=== PATIENT | male | born 1930 | race Caucasian/White ===

== ENCOUNTER → 2017-09-30 | Outpatient (CLI) | payer MEDICARE, BC ==
[~2017-09-30] MED LIST: ALL300 PO; ALLO100T70 PO; ASC500 PO; ASCO-188 PO; AZIT-1 PO; BETA10DR4 OP; CALC-1201 PO; CALC-852 PO; DOC100 GT; ERGO2000 PO; FLU IM; GAB300 PO; GABA-549 PO; GLUC-198 PO; GUAI120L3 PO; HYDR12.556 PO; HYDR12.558 PO; IPRA3AMP21 IH; ITRA100C9 PO; LEVO-3 PO; LEVO-317 PO; LEVO100T95 PO; LEVO750T44 PO; LISI5TAB25 PO; MAGN250T25 PO; MAGN250T34 PO; OMEG-95 PO; OMEP-125 PO; OMEP-218 PO; OXYC-865 PO; PER PO; PNEU0.5D3 IM; PRED-1 PO; PRED20TA6 PO; ROBC PO; SELE200T23 PO; SIMV-42 PO; SIMV-49 PO; UBID100C48 PO; VITA1CAP55 PO; ZINC50TA2 PO; [UNRECOGNIZED DRUG - CODE] PO; [UNRECOGNIZED DRUG - CODE] PO
[2017-09-30 09:33] LABS: PLATELET COUNT, AUTOMATED 136 K/uL (150-450)
== END ==
LOC: LAB 08:57
PROVIDERS: ATTEND Internal Medicine
DX: E03.9 Hypothyroidism, unspecified (principal); I10 Essential (primary) hypertension; M10.9 Gout, unspecified; E78.00 Pure hypercholesterolemia, unspecified; M79.661 Pain in right lower leg
CPT/HCPCS: 36415; 82040; 82247; 82310; 82374; 82435; 82465; 82565; 82947; 83718; 84075; 84132; 84155; 84295; 84443; 84450; 84460; 84478; 84520; 85025

== ENCOUNTER → 2017-10-04 | Outpatient (CLI) | payer MEDICARE, BC ==
--- NOTE | 2017-10-04 15:47 | RADIOLOGY IMAGING REPORT ---
[place] [facility] [place] NAME: Mehul Majano : 1930 MR: [id number] V: [id number] EXAM DATE: ORDERING PHYSICIAN: ZHANG GORDILLO TECHNOLOGIST: Location: [facility] Patient: Mehul Majano : 1930 Visit/Account:[id number] Date of Sevice: 10/04/2017 Exam type: ANKLE BRACHIAL INDICES History: pain in right leg with walking Comparison: None. Findings: Segmental pressure in the right brachial artery is 129 mmHg. Segmental pressure in the right posterior tibial artery is 77 mmHg. Segmental pressure in the right dorsalis pedis artery is 88 mmHg. Signal pressure in the right great toe is 56 millers of mercury. The ankle-brachial index on the right is 0.68. The TBI on the right is 0.43 There is moderate dampening of the PVR waveform at the right ankle Segmental pressure in the left brachial artery is 128 mmHg. Signal pressure in the left posterior tibial artery is 125 millers of mercury. Segmental pressure in the left dorsalis pedis artery is 125 mmHg. Segmental pressure in the left great toe is 87 mmHg. The ALEX on the left is 1.05 and the TBI on the left is 0.67. No significant dampening of the waveform at the left ankle is identified IMPRESSION: 1. ALEX on the right is 0.68 and TBI on the right is 0.43 The ALEX on the left 1.05 and TBI on the left 0.67 Report Dictated By: Ana Hernandez MD at 10/04/2017 3:39 PM Report E-Signed By: Ana Hernandez MD at 10/04/2017 3:42 PM WSN:[email or web address]
== END ==
LOC: US 01:09
PROVIDERS: ATTEND Internal Medicine
DX: M79.661 Pain in right lower leg (principal)
CPT/HCPCS: 93922

== ENCOUNTER 2017-11-05 14:24 | Inpatient (IN) | payer MEDICARE, BC ==
[~2017-11-05] VITALS: Ht 177.8 cm; Wt 82.0 kg
--- NOTE | 2017-11-05 14:56 | ER Report ---
History and Physical Time Seen By MD: 14:45 Hx. of Stated Complaint: PT REPORTS GENERAL WEAKNESS, LOW BP AT HOME. PT HAD RECENT BP MED ADJUSTED HPI/ROS This is an 86-year-old male with past medical history significant for hypothyroidism and hypertension. He was sent to the emergency department from his [facility] facility for "low blood pressure." The patient reports generalized weakness for the past 1.5 weeks. He also feels overwhelming fatigue. Denies and new pain. No chest pain or SOB. Hypoxic on RA upon arrival, but denies SOB. He otherwise has no complaints. Remainder of the 14 system rev: Yes Allergies: Coded Allergies: latex (Verified Allergy, Mild, RASH, 11/05/17) Home Meds Active Scripts Omeprazole (OMEPRAZOLE) 20 Mg Capsule.dr, 1 CAP PO QDAY, #90 TAB 3 Refills Prov:ZHANG GORDILLO MD 10/10/17 Hydrochlorothiazide (HYDROCHLOROTHIAZIDE) 12.5 Mg Capsule, 1 TAB PO QDAY, #90 CAPSULE 3 Refills Prov:ZHANG GORDILLO MD 09/29/17 Lisinopril (LISINOPRIL) 5 Mg Tablet, 1 TAB PO QDAY, #30 TAB 1 Refill Prov:ZHANG GORDILLO MD 09/27/17 Levothyroxine Sodium (LEVOXYL) 125 Mcg Tablet, 1 TAB PO QDAY, #90 TAB 4 Refills Prov:ZHANG GORDILLO MD 09/13/16 Simvastatin (SIMVASTATIN) 20 Mg Tablet, 1 TAB PO HS, #90 TAB 4 Refills Prov:ZHANG GORDILLO MD 07/06/16 Allopurinol (ALLOPURINOL) 100 Mg Tablet, 2 TAB PO DAILY, #180 TAB 4 Refills Prov:ZHANG GORDILLO MD 07/06/16 Reported Medications Selenium (SELENIUM) 100 Mcg Tablet, 1 TAB PO QDAY 07/01/15 Magnesium Oxide (MAGNESIUM) 250 Mg Tablet, 1 TAB PO QDAY 07/01/15 Zinc Amino Acid Chelate (ZINC) 50 Mg Tablet, 1 TAB PO QDAY, CAPSULE 07/01/15 Glucosa Adler 2KCL/Chondroitin Adler (GLUCOSAMINE & CHONDROITIN CAP) 1 Each Capsule, 1 CAP PO BID, CAPSULE 07/01/15 Calcium Carbonate/Vitamin D3 (CALCIUM + VITAMIN D TABLET) 1 Each Tablet, 1 TAB PO QDAY 07/01/15 Reviewed Nurses Notes: Yes Old Medical Records Reviewed: Yes Hx Smoking: No Smoking Status: Former Smoker Exposure to Second Hand Smoke?: Yes Constitutional Vital Sign - Last 24 Hours 11/05/17 11/05/17 11/05/17 11/05/17 14:24 14:27 14:27 14:30 Temp 97.6 Pulse 78 75 Resp 16 B/P (MAP) 113/57 (75) 113/57 110/52 (71) Pulse Ox 65 67 O2 Delivery Room Air O2 Flow Rate 5.0 11/05/17 11/05/17 11/05/17 11/05/17 14:34 14:44 14:54 15:00 Pulse 72 72 71 Resp 21 12 14 B/P (MAP) 91/63 (72) Pulse Ox 92 93 94 11/05/17 11/05/17 11/05/17 11/05/17 15:03 15:08 15:23 15:30 Pulse 69 69 68 Resp 7 9 16 B/P (MAP) 103/61 (75) Pulse Ox 90 91 93 11/05/17 11/05/17 11/05/17 11/05/17 15:38 16:00 16:08 16:13 Pulse 68 66 66 Resp 24 B/P (MAP) 101/54 (70) Pulse Ox 88 88 11/05/17 11/05/17 11/05/17 11/05/17 16:30 16:43 17:00 17:13 Pulse 68 68 B/P (MAP) 90/54 (66) 99/58 (72) Pulse Ox 86 88 11/05/17 11/05/17 11/05/17 17:30 17:43 18:00 Pulse 68 B/P (MAP) 110/60 (77) 108/61 (77) Pulse Ox 89 Physical Exam General Appearance: The patient is alert, has no immediate need for airway protection and no current signs of toxicity. Eyes: Pupils equal and round no injection. Respiratory: Chest is non tender, lungs are clear to auscultation. Cardiac: regular rate and rhythm Gastrointestinal: Abdomen is soft and non tender, no masses, bowel sounds normal. Musculoskeletal: Neck: Neck is supple and non tender. Extremities have full range of motion and are non tender. Skin: No rashes or lesions. DIFFERENTIAL DIAGNOSIS: After history and physical exam differential diagnosis was considered for infection, VT, electrolyte disturbance Medical Decision Making Data Points Result Diagram: 11/05/17 1418 11/05/17 1418 Laboratory Hematology Test 11/05/17 14:18 11/05/17 15:38 Red Blood Count 3.66 M/uL (4.00-5.60) Mean Corpuscular Volume 95.5 fL (80.0-96.0) Mean Corpuscular Hemoglobin 32.4 pg (26.0-33.0) Mean Corpuscular Hemoglobin Concent 34.0 g/dL (32.0-36.0) Red Cell Distribution Width 14.1 % (11.5-14.5) Mean Platelet Volume 10.8 fL (7.2-11.1) Neutrophils (%) (Auto) 47.8 % (39.4-72.5) Lymphocytes (%) (Auto) 48.2 % (17.6-49.6) Monocytes (%) (Auto) 0.5 % (4.1-12.4) Eosinophils (%) (Auto) 3.0 % (0.4-6.7) Basophils (%) (Auto) 0.5 % (0.3-1.4) Nucleated RBC Relative Count (auto) 0.1 /100WBC Neutrophils # (Auto) 6.2 K/uL (2.0-7.4) Lymphocytes # (Auto) 6.3 K/uL (1.3-3.6) Monocytes # (Auto) 0.1 K/uL (0.3-1.0) Eosinophils # (Auto) 0.4 K/uL (0.0-0.5) Basophils # (Auto) 0.1 K/uL (0.0-0.1) Nucleated RBC Absolute Count (auto) 0.01 K/uL Peripheral Blood Smear Yes Y/N Sodium Level 134 mmol/L (137-145) Potassium Level 4.7 mmol/L (3.5-5.0) Chloride Level 95 mmol/L (98-107) Carbon Dioxide Level 28 mmol/L (22-30) Blood Urea Nitrogen 59 mg/dl (9-21) Creatinine 2.90 mg/dl (0.66-1.25) Glomerular Filtration Rate Calc 20.8 Random Glucose 141 mg/dl (75-110) Calcium Level 13.3 mg/dl (8.4-10.2) Total Bilirubin 0.7 mg/dl (0.2-1.3) Aspartate Amino Transf (AST/SGOT) 34 U/L (0-35) Alanine Aminotransferase (ALT/SGPT) 39 U/L (0-56) Alkaline Phosphatase 80 U/L (0-126) Troponin I 0.075 ng/ml B-Type Natriuretic Peptide 198 pg/ml (0-100) Total Protein 5.9 gm/dl (6.3-8.2) Albumin 3.1 g/dl (3.5-5.0) Blood Gas Patient Temperature 97.6 DEGREES Venous Blood pH 7.49 (7.31-7.41) Venous Blood Partial Pressure CO2 34 mmHg Venous Blood Partial Pressure O2 < 35 mmHg Venous Blood HCO3 27 mmol/L Venous Blood Oxygen Saturation 72 % Venous Blood Base Excess 3 mmol/L Oxygen Liters/Minute 4.5l Chemistry Test 11/05/17 14:18 11/05/17 15:38 White Blood Count 13.1 k/uL (4.5-11.0) Red Blood Count 3.66 M/uL (4.00-5.60) Hemoglobin 11.9 g/dL (14.0-18.0) Hematocrit 35.0 % (42.0-52.0) Mean Corpuscular Volume 95.5 fL (80.0-96.0) Mean Corpuscular Hemoglobin 32.4 pg (26.0-33.0) Mean Corpuscular Hemoglobin Concent 34.0 g/dL (32.0-36.0) Red Cell Distribution Width 14.1 % (11.5-14.5) Platelet Count 215 K/uL (150-450) Mean Platelet Volume 10.8 fL (7.2-11.1) Neutrophils (%) (Auto) 47.8 % (39.4-72.5) Lymphocytes (%) (Auto) 48.2 % (17.6-49.6) Monocytes (%) (Auto) 0.5 % (4.1-12.4) Eosinophils (%) (Auto) 3.0 % (0.4-6.7) Basophils (%) (Auto) 0.5 % (0.3-1.4) Nucleated RBC Relative Count (auto) 0.1 /100WBC Neutrophils # (Auto) 6.2 K/uL (2.0-7.4) Lymphocytes # (Auto) 6.3 K/uL (1.3-3.6) Monocytes # (Auto) 0.1 K/uL (0.3-1.0) Eosinophils # (Auto) 0.4 K/uL (0.0-0.5) Basophils # (Auto) 0.1 K/uL (0.0-0.1) Nucleated RBC Absolute Count (auto) 0.01 K/uL Peripheral Blood Smear Yes Y/N Glomerular Filtration Rate Calc 20.8 Calcium Level 13.3 mg/dl (8.4-10.2) Total Bilirubin 0.7 mg/dl (0.2-1.3) Aspartate Amino Transf (AST/SGOT) 34 U/L (0-35) Alanine Aminotransferase (ALT/SGPT) 39 U/L (0-56) Alkaline Phosphatase 80 U/L (0-126) Troponin I 0.075 ng/ml B-Type Natriuretic Peptide 198 pg/ml (0-100) Total Protein 5.9 gm/dl (6.3-8.2) Albumin 3.1 g/dl (3.5-5.0) Blood Gas Patient Temperature 97.6 DEGREES Venous Blood pH 7.49 (7.31-7.41) Venous Blood Partial Pressure CO2 34 mmHg Venous Blood Partial Pressure O2 < 35 mmHg Venous Blood HCO3 27 mmol/L Venous Blood Oxygen Saturation 72 % Venous Blood Base Excess 3 mmol/L Oxygen Liters/Minute 4.5l EKG/Imaging EKG Interpretation 12 lead EKG: Rhythm: normal sinus rhythm [place]: normal QRS: normal ST segments: no specific flattening Monitor Interpretation: Normal Sinus Rhythm Imaging X-ray: CXR was obtained. I viewed the images myself on the PACS system. My interpretation of the images is: mild pulmonary edema. The radiologist interpretation had no clinically significant variation from this interpretation. Results: CT scan of the head was obtained. The results of the study are no acute findings. The study was read by the radiologist. I viewed the images myself on the PACS system. ED Course/Re-evaluation Clinical Indication for ER IV: Hydration ED Course 86-year-old male sent to the emergency department for hypotension from his assisted living facility. He was normotensive upon arrival to the ED. His chief complaint is he feels overwhelming generalized weakness for the past week and a half. He appears volume depleted on physical exam. He denies any pain. No fever chills. He is noted to have an AK I and hypercalcemia without EKG changes. Think he is likely volume depleted. He did mention to the nursing staff that he did not want to drink water because he does not feel like getting up to go to the bathroom. He has been started on gentle volume resuscitation. He was also somewhat hypoxic on room air upon arrival, but otherwise does not complain of any chest pain or shortness of breath. He has some mild pulmonary edema on his chest x-ray, which is likely contributing to his hypoxia on room air. He will be admitted for further workup. Decision to Disposition Date: November 05, 2017 Decision to Disposition Time: 18:33 Depart Departure Latest Vital Signs Vital Signs Date Time Temp Pulse Resp B/P (MAP) Pulse Ox O2 Delivery O2 Flow Rate FiO2 11/05/17 18:00 108/61 (77) 11/05/17 17:43 68 89 11/05/17 15:38 24 11/05/17 14:27 97.6 Room Air 11/05/17 14:27 5.0 Impression: Primary Impression: Hypercalcemia Additional Impression: Renal insufficiency Condition: Improved Disposition: Admitted from ER Referrals: ZHANG GORDILLO MD (PCP) Problem Qualifiers MOI DIAMOND MD November 05, 2017 14:56
[2017-11-05 15:37] LABS: PLATELET COUNT, AUTOMATED 215 K/uL (150-450)
[2017-11-05] MEDS ORDERED: NS(*) 0.9% 1000 ML BAG 1,000 ML IV ONE (15:50)
--- NOTE | 2017-11-05 16:26 | RADIOLOGY IMAGING REPORT ---
FAC[place] [facility] [place]IENT NAME: Mehul Majano : 1930 MR: [id number] V: [id number] EXAM DATE: ORDERING PHYSICIAN: MOI DIAMOND TECHN[place] [facility] [place] Mehul [place] : 1930 Visit/Account:[id number] Date of Sevice: 11/05/2017 CHEST SINGLE AP History: Hypoxia FINDINGS: Comparison studies: Comparison radiographs 10/13/2015 Tubes and Lines: None. Lungs and pleura: There has been interval development of extensive diffuse interstitial opacities t hrough both lungs with global involvement lung parenchyma most extensive in the lower lobes. Mediastinum: normal. Cardiac silhouette: normal . Osseous structures: Unremarkable for age . IMPRESSION: Findings probably represent acute pulmonary edema, possibly congestive heart failure. Hypersensitiv ity pneumonitis also possible. Infectious process less likely. Report Dictated By: Mikhail Alexis MD at 11/05/2017 4:20 PM Report E-Signed By: Mikhail Alexis MD at 11/05/2017 4:23 PM WSN:[id number]
--- NOTE | 2017-11-05 16:26 | RADIOLOGY IMAGING REPORT ---
FACILITY: [facility] - [place] PATIENT NAME: Mehul Majano : 1930 MR: [id number] V: [id number] EXAM DATE: ORDERING PHYSICIAN: MOI DIAMOND TECHNOLOGIST: Location: [facility] Patient: Mehul Majano : 1930 Visit/Account:[id number] Date of Sevice: 11/05/2017 EXAMINATION: CT head without IV contrast HISTORY: Swooshing sound inside head. TECHNIQUE: Axial CT images of the head were obtained from the vertex to the skull base without IV c ontrast, with coronal and sagittal 2D reconstructed images. One of the following dose optimization techniques was utilized in the performance of this exam: Autom ated exposure control; adjustment of the mA and/or kV according to the patient's size; or use of an i terative reconstruction technique. Specific details can be referenced in the facility's radiology C T exam operational policy. COMPARISON: None. FINDINGS: There is mild age-appropriate parenchymal volume loss, with slight patchy low attenuation in the deep white matter compatible with chronic small vessel ischemic change. Intracranial vascular calcificati ons. No CT evidence of intracranial hemorrhage, mass lesion, or acute infarct. No midline shift or extra-a xial fluid collections. Alejandra-white differentiation is maintained. The calvarium is intact. Prior sinus surgery with medial antrectomies. The paranasal sinuses and mast oid air cells are unopacified. The middle ear cavities are unopacified. IMPRESSION: 1. No CT evidence of acute intracranial pathology. 2. Mild chronic age-related changes. 2. The paranasal sinuses and middle ear cavities are unopacified. Report Dictated By: Vishal Bianchi MD at 11/05/2017 4:16 PM Report E-Signed By: Vishal Bianhci MD at 11/05/2017 4:22 PM WSN:[id number]
--- NOTE | 2017-11-05 17:27 | EKG ---
[place] [facility] [place] NAME: KAREN NORMAN : [id number] MR: [id number] V: [id number] EXAM DATE: ORDERING PHYSICIAN: MOI DIAMOND TECHNOLOGIST: SHAHID Test Reason : POSSIBLE STROKE Blood Pressure : / mmHG Vent. Rate : 073 BPM Atrial Rate : 073 BPM P-R Int : 152 ms QRS Dur : 078 ms QT Int : 380 ms P-R-T Axes : 052 061 061 degrees QTc Int : 418 ms Normal sinus rhythm Nonspecific T wave abnormality Abnormal ECG No previous ECGs available Confirmed by NAOMY DELCID ([id number]) on 11/06/2017 6:41:26 AM Referred By: DARA Confirmed By:NAOMY DELCID
[2017-11-05 20:04] VITALS: BP 127/60
[2017-11-05] MEDS ORDERED: INFLUENZA VIRUS VAC 0.5 ML SYR IM ONLY ONE (20:40)
[2017-11-05] MEDS ORDERED: NS(*) 0.9% 1000 ML BAG 1,000 ML IV PRN (20:40)
--- NOTE | 2017-11-05 20:56 | History & Physical ---
History of Present Illness Chief Complaint Weakness History of Present Illness This patient presented to the emergency room with vague complaints of weakness and low blood pressure. His blood pressure was noted to be normal on arrival. However, he was noted to be hypoxic. He does report shortness of breath with exertion. 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 (5) Essential hypertension Status: Chronic Home Meds Active Scripts Omeprazole (OMEPRAZOLE) 20 Mg Capsule.dr, 1 CAP PO QDAY, #90 TAB 3 Refills Prov:ZHANG GORDILLO MD 10/10/17 Hydrochlorothiazide (HYDROCHLOROTHIAZIDE) 12.5 Mg Capsule, 1 TAB PO QDAY, #90 CAPSULE 3 Refills Prov:ZHANG GORDILLO MD 09/29/17 Lisinopril (LISINOPRIL) 5 Mg Tablet, 1 TAB PO QDAY, #30 TAB 1 Refill Prov:ZHANG GORDILLO MD 09/27/17 Levothyroxine Sodium (LEVOXYL) 125 Mcg Tablet, 1 TAB PO QDAY, #90 TAB 4 Refills Prov:ZHANG GORDILLO MD 09/13/16 Simvastatin (SIMVASTATIN) 20 Mg Tablet, 1 TAB PO HS, #90 TAB 4 Refills Prov:ZHANG GORDILLO MD 07/06/16 Allopurinol (ALLOPURINOL) 100 Mg Tablet, 2 TAB PO DAILY, #180 TAB 4 Refills Prov:ZHANG GORDILLO MD 07/06/16 Reported Medications Selenium (SELENIUM) 100 Mcg Tablet, 1 TAB PO QDAY 07/01/15 Magnesium Oxide (MAGNESIUM) 250 Mg Tablet, 1 TAB PO QDAY 07/01/15 Zinc Amino Acid Chelate (ZINC) 50 Mg Tablet, 1 TAB PO QDAY, CAPSULE 07/01/15 Glucosa Adler 2KCL/Chondroitin Adler (GLUCOSAMINE & CHONDROITIN CAP) 1 Each Capsule, 1 CAP PO BID, CAPSULE 07/01/15 Calcium Carbonate/Vitamin D3 (CALCIUM + VITAMIN D TABLET) 1 Each Tablet, 1 TAB PO QDAY 07/01/15 Allergies: Coded Allergies: latex (Verified Allergy, Mild, RASH, 11/05/17) Patient History: Diabetes mellitus (DM) BROTHER OR SISTER, Age:81 FH: stomach ulcer FATHER, , Age:90 (perforated) FHx: rheumatoid arthritis BROTHER OR SISTER, Age:81 Hx Smoking: No Smoking Status: Former Smoker Exposure to Second Hand Smoke?: Yes Caffeine Intake: Coffee Caffeine/Cups Per Day: 5 CUPS/DAY Review of Systems All Systems Reviewed/Normal: Yes, Except as Noted Neurological: Weakness Respiratory: Shortness of Breath Exam Vital Signs Vital Signs Date Time Temp Pulse Resp B/P (MAP) Pulse Ox O2 Delivery O2 Flow Rate FiO2 11/05/17 20:04 97.8 75 22 127/60 (82) 94 Oxy Mask 8.0 Neuro: No Gross deficits Eyes: PERRLA Cardiovascular: Regular Rate and Rhythm Respiratory: Clear to Auscultation GI: Abd Soft and Non-Tender Extremities: No Edema Integumentary: No Cyanosis Medical Decision Making Data Points Result Diagram: 11/05/17 1418 11/05/17 1418 Item Value Date Time Calcium Level 13.3 mg/dl *H 11/05/17 1418 Troponin I 0.075 ng/ml 11/05/17 1418 B-Type Natriuretic Peptide 198 pg/ml H 11/05/17 1418 EKG / Imaging Imaging Chest x-ray reviewed. Assessment and Plan Problems: (1) Hypercalcemia Status: Acute Assessment & Plan: He is noted to have an elevated calcium level, which is likely due to dehydration and exacerbated by his hydrochlorothiazide. He has been started on IV fluids and a repeat calcium level is ordered for the morning. We have also ordered a PTH. (2) Acute renal failure Assessment & Plan: He does have an acute rise in his creatinine compared to last month. He has been started on fluids as above. (3) Pulmonary edema Assessment & Plan: The etiology is unclear. He does have hypoxia and complains of shortness of breath with exertion. His BNP is elevated and troponin is in equivocal range. We have ordered an echocardiogram, daily weights, and a troponin series. (4) Essential hypertension Status: Chronic Assessment & Plan: He has been on chronic treatment with lisinopril and hydrochlorothiazide. Both medications have been held. (5) Hypothyroidism Onset Date: 06/27/2014 Status: Chronic Assessment & Plan: He is on chronic treatment with Synthroid. A TSH is pending. 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 Copies to: ZHANG GORDILLO MD Venous Thromboembolism Antithrombotics Is Pt On Any Antithrombotics?: No Exam Sepsis Risk: No Definite Risk NAOMY DELCID DO November 05, 2017 20:56
[2017-11-06] VITALS (51 sets, daily range): BP systolic 76–155; BP diastolic 31–83; Ht 177.8 cm; Wt 82.0 kg
[2017-11-06 06:16] LABS: PLATELET COUNT, AUTOMATED 165 K/uL (150-450)
[2017-11-06] MEDS ORDERED: MAGNESIUM HYDROXIDE* 30ML UDCP PO PRN (08:45)
[2017-11-06] MEDS ORDERED: BISACODYL 10 MG SUPP PR PRN (08:45)
[2017-11-06] MEDS ORDERED: FUROSEMIDE 20 MG/2 ML VIAL IVP ONE ×2 (08:45→15:30)
[2017-11-06] MEDS ORDERED: LEVOTHYROXINE SOD 0.125 MG TAB PO SCH ×2 (09:00→09:10)
[2017-11-06] MEDS: ENOXAPARIN 30 MG/0.3 ML SYR SC SCH (09:47)
[2017-11-06] MEDS: DOCUSATE SODIUM 100 MG CAP PO SCH ×2 (09:47→21:10)
[2017-11-06] MEDS: POLYETHYLENE GLYCOL 17 GM PKT PO SCH (09:48)
--- NOTE | 2017-11-06 11:08 | RADIOLOGY IMAGING REPORT ---
FACILITY: [facility] PATIENT NAME: Mehul Majano : 1930 MR: [id number] V: [id number] EXAM DATE: ORDERING PHYSICIAN: JEAN CARLOS BORJA TECHNOLOGIST: Location: [facility] - [place] Patient: Mehul Majano : 1930 Visit/Account:[id number] Date of Sevice: 11/06/2017 Examination: Computed tomography thorax without contrast HISTORY: Infiltrates. Further evaluate. TECHNIQUE: Transaxial computed tomography images are obtained of the thorax without contrast. Multipl hair reformatted images were created in the coronal and sagittal planes. One of the following dose optimization techniques was utilized in the performance of this exam: Autom ated exposure control; adjustment of the mA and/or kV according to the patient's size; or use of an i terative reconstruction technique. Specific details can be referenced in the facility's radiology C T exam operational policy. Comparison: Plain films dated 11/05/2017 and October 13, 2015 are reviewed. FINDINGS: On this noncontrast study, no enlarged axillary lymph nodes are seen. There are multiple calcified hilar and mediastinal nodes present which are characteristic of old gran ulomatous disease. There are other, noncalcified lymph nodes identified. A precarinal node is enlarge d on image 42 and measures 1.4 x 1.7 cm in size. A right paratracheal node on image 38 measures 1.2 c m in size. There are additional nodes seen in the upper anterior mediastinum with a node measuring 1. 5 cm on image 26. Enlarged retrocrural nodes are seen. A left retrocrural node on image 79 measures 2 .2 x 1.6 cm. No pericardial effusion. There are small bilateral pleural effusions. Atherosclerotic calcifications are seen within the aortic arch and the arch vessels as well as the co ronary arteries. With respect to the lung windows, there are coronel lobar groundglass infiltrates seen bilaterally. These have a mid and upper lung predominant distribution. There is relative sparing of the far posterior i nferior lung bases. There are areas of septal line thickening. There are cystic changes seen througho ut the lungs. In the acute setting, appearance would favor groundglass infiltrates superimposed upon underlying centrilobular and paraseptal emphysema. This could be related to an inflammatory pneumonit is such as hypersensitivity pneumonitis. This could be related to a drug hypersensitivity. This less likely represents pulmonary alveolar proteinosis. Typical versus atypical infection would also be inc luded in the differential. Clinical correlation is necessary. Chronic interstitial lung disease is fe lt to be less likely as the lungs were clear on the 2016 exam. In addition, there are bronchiectatic changes present centrally. There are scattered calcified nodules which are characteristic of old gran ulomatous disease. No compression fractures are seen. Degenerative changes involve the thoracic spine. Limited images of the upper abdomen demonstrate old granulomatous disease in the spleen. Abdominal ao rta is atherosclerotic. IMPRESSION: 1. Dense coronel lobar groundglass infiltrates throughout both lungs with a mid and upper lung predominan t distribution. There are scattered areas of septal line thickening. In the acute setting, the CT meggan earance would favor an inflammatory pneumonitis superimposed upon underlying centrilobular and parase ptal emphysema. Typical versus atypical infectious etiologies or pulmonary alveolar proteinosis would also be the differential. Clinical correlation necessary. This requires short interval follow-up CT scan. Consider pulmonary consultation. 2. Mediastinal and retrocrural adenopathy. 3. Old granulomatous disease. 4. Diffuse atherosclerosis. Report Dictated By: Bright Lyon at 11/06/2017 10:53 AM Report E-Signed By: Bright Lyon at 11/06/2017 11:05 AM WSN:[id number]
[2017-11-06] MEDS: cefTRIAXone 2 GM VIAL IVP SCH (12:03)
--- NOTE | 2017-11-06 12:04 | Hospitalist Progress Note ---
Subjective Progress Notes Subjective He denies SOB, but staff has had to increase his O2 from 2 liters on admission to 15 liters. He has used the BIPAP this morning with good effect. He was moved to the ICU this morning. Physical Exam Vital Signs Date Time Temp Pulse Resp B/P (MAP) Pulse Ox O2 Delivery O2 Flow Rate FiO2 11/06/17 11:00 99.4 80 17 97/52 (67) 94 Bi-PAP 70.0 11/06/17 10:29 15.0 Intake and Output 11/07/17 07:00 Intake Total 240 ml Output Total 180 ml Balance 60 ml Intake Oral 240 ml Output Urine Total 180 ml # Voids 1 General Appearance: Alert, Awake, Other (mild tachypnea) Cardiovascular: Regular Rate and Rhythm Respiratory: Other (Insp crackles in mid lungs bilaterally and in left base. No wheezing) Extremities: Warm, No Pulses (In feet bilaterally, but able to Doppler the DP bilaterally), Perfused, Edema (trace to 1+ pitting edema in shins) Integumentary: No Jaundice, No Cyanosis Result Diagram: 11/06/17 0509 11/06/[address] of chest - 1. Dense coronel lobar groundglass infiltrates throughout both lungs with a mid and upper lung predominant distribution. There are scattered areas of septal line thickening. In the acute setting, the CT appearance would favor an inflammatory pneumonitis superimposed upon underlying centrilobular and paraseptal emphysema. Typical versus atypical infectious etiologies or pulmonary alveolar proteinosis would also be the differential. Clinical correlation necessary. This requires short interval follow-up CT scan. Consider pulmonary consultation. 2. Mediastinal and retrocrural adenopathy. 3. Old granulomatous disease. 4. Diffuse atherosclerosis. Monitor Interpretation: Normal Sinus Rhythm Assessment and Plan Problems: (1) Pneumonitis Status: Acute Assessment & Plan: He presented with a couple weeks of cough and then about a 1.5 weeks of progressive weakness. CXR showed diffuse edema and he had new hypoxia. CT of chest today shows panlobar ground glass infiltrates bilaterally with a mid and upper lung predominant distribution superimposed on centrilobular and paraseptal emphysema. His O2 requirement has increased overnight and now is requiring BIPAP/high flow nasal canula to maintain saturations. IVF have been stopped and he has been given a dose of Lasix. Ceftriaxone and azithromycin have been started. I spoke to Pulmonology at [facility] and they agreed with the plan. If the patient, decompensates despite diuresis/ abx and/or kidney function worsens, then the patient will likely need to be transferred. (2) Hypercalcemia Status: Acute Assessment & Plan: He is noted to have an elevated calcium level which has improved with hydration. The etiology is unclear, but was certainly exacerbated by his hydrochlorothiazide and possible dehydration. PTH pending. He was hydrated, but now is saline locked. Calcium still elevated but decreased. Lasix given this morning. Will follow. (3) Acute renal failure Assessment & Plan: He presented with a creatinine of 2.9 up from a baseline of about 1.2. Today, it has decreased to 2.2 after hydration. However, because of the increased O2 requirements and the CT results, fluids have been stopped and Lasix given. He is to get another creatinine later today to see the result of diuresis. See above. (4) Essential hypertension Status: Chronic Assessment & Plan: He has been on chronic treatment with lisinopril and hydrochlorothiazide. Both medications have been held. (5) Hypothyroidism Onset Date: 06/27/2014 Status: Chronic Assessment & Plan: He is on chronic treatment with Synthroid. A TSH is pending. Now on IV levothyroxine. 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 Exam Sepsis Risk: No Definite Risk JEAN CARLOS BORJA MD November 06, 2017 12:04
[2017-11-06] MEDS ORDERED: LEVOTHYROXINE SOD 100 MCG VIAL IVP ONE (12:30)
[2017-11-06] MEDS: AZITHROMYCIN(*) 500 MG 500 MG in NS(*) 0.9% 250 ML BAG 250 ML IVPB SCH (12:48)
[2017-11-06] MEDS: ACETAMINOPHEN 325 MG TAB PO PRN (21:10)
[2017-11-07] VITALS (80 sets, daily range): BP systolic 74–122; BP diastolic 43–90
[2017-11-07 05:18] LABS: PLATELET COUNT, AUTOMATED 141 K/uL (150-450)
--- NOTE | 2017-11-07 06:28 | RADIOLOGY IMAGING REPORT ---
FACILITY: [facility] - [place] PATIENT NAME: Mehul Majano : 1930 MR: [id number] V: [id number] EXAM DATE: ORDERING PHYSICIAN: JEAN CARLOS BORJA TECHNOLOGIST: Location: [facility] - [place] Patient: Mehul Majano : 1930 Visit/Account:[id number] Date of Sevice: 11/07/2017 CHEST SINGLE AP Additional pertinent History: Hypoxia. COMPARISON STUDIES: 11/05/2017 FINDINGS: Support lines and catheters: EKG wire leads Lungs and Pleura: Reidentified is the coarse reticular interstitial lung changes noted throughout sveta th lung khanna with increasing prominence in the mid and upper lung field when compared to the previo us study. Actual slight improvement in what had been a greater degree of apparent atelectasis in the right lower lung. Heart and vasculature: Heart is of normal size. Central vasculature is grossly unchanged Claritza and Mediastinum: Negative. Bones and Chest wall: Negative. Upper Abdomen: Negative. IMPRESSION: 1. Increasing coarse reticular interstitial lung change noted in the mid-upper lung khanna. Slight im provement in aeration the right lower lung. Differential diagnosis includes worsening pulmonary edema versus other infectious/inflammatory lung processes. Report Dictated By: David Shah MD at 11/07/2017 6:20 AM Report E-Signed By: David Shah MD at 11/07/2017 6:24 AM WSN:[id number]
[2017-11-07] MEDS ORDERED: FUROSEMIDE 20 MG/2 ML VIAL IVP ONE (08:15)
[2017-11-07] MEDS: POLYETHYLENE GLYCOL 17 GM PKT PO SCH (08:48)
[2017-11-07] MEDS: methylPREDNIS SUCC 125 MG/2ML IVP SCH ×2 (08:49→17:25)
[2017-11-07] MEDS: ENOXAPARIN 30 MG/0.3 ML SYR SC SCH (08:52)
[2017-11-07] MEDS: DOCUSATE SODIUM 100 MG CAP PO SCH ×2 (08:52→20:39)
--- NOTE | 2017-11-07 09:07 | Medical Nutrition Therapy ---
Nutrition Anthropometrics Height (Inches): 70.00 Height (Calculated Centimeters: 177.293130 Weight (Pounds): 183 Weight (Calculated Kilograms): 83.007 BMI Calculated: 26.69 Hussein Nutrition Score: Adequate Hussein Nutrition Risk Score: 17 Dietary Referral Nutrition Risk Factors: Nutrition Risk Comment: Physical Findings Physical Appearance: Overweight BMI 25-29 Skin Appearance Skin Appearance: Edema Edema Location Modifier: Both Edema Location: Lower Extremity Type of Edema: Degree of Edema: Gastrointestinal Symptoms GI Symtoms: Tube Present: Bowel Sounds: Recent Bowel Pattern: Stool Characteristics: Nutritional Diagnosis Nutritional Risk Acuity 1: Acute/ES Renal Nutritional Risk Acuity 4: Good Appetite Past Medical History: Gouty arthropathy, Hypothyroidism, Benign prostatic hyperplasia (BPH), Squamous cell carcinoma of scalp, Essential hypertension Nutritional Acuity: 1-High Nutrition Diagnosis: Decreased Nutrient Needs Nutrition Etiology: Physiological Causes Nutrition Problem/Etiology/Sym: Decreased protein, fluids needs r/t dxc ARF aEB BUN 44, creatinine 1.8 Energy Requirement: 1980 ([place]- [place]) Protein Requirement: 66 (.8gm/kg) Fluid Requirement: 2000 (25ml/kg) Diet Type: Diet as Tolerated YURI/REG Nutrition Intervention: Cont diet as ordered, Encourage intake Nutrition Monitoring & Eval Nutrition Goals: Eat 75-100% Meal Nutrition Follow-Up: Good Intake RD Patient Assessment Time: [address] Assessment Type: RD Assessment Patient Nutrition Acuity: 1-High Follow Up Date: November 10, 2017 Nutritional Comment: Pt admitted with Hypercalcemia, ARF, and Pulmonary edema. ARF should resolve with hydration. Low H/H, Ca+ 11.7, Alb 3.1, BNP 198. Pt overwt with BMI of 26.7. Receiving YURI and consuming 100%. Follow intake, labs, etc. 11/07 Pt cont dx of ARF. BUN 44, creatinine 1.8 which has improved but not resolved. Pt recieved duiretic but now is stopped. Pt has non-pitting edema LE with a 5# wt gain from admission. Anticipate wt loss when edema resolved. Pt is eating 75- 100% of meals. alb low at 2.1, Na low at 134. Will cont to monitor and encourage intake. BRIDGETT ESTEVEZ November 07, 2017 09:07
--- NOTE | 2017-11-07 10:12 | Hospitalist Progress Note ---
Subjective Progress Notes Subjective He reports some improvements. Less dyspnea. No fever. Physical Exam Vital Signs Date Time Temp Pulse Resp B/P (MAP) Pulse Ox O2 Delivery O2 Flow Rate FiO2 11/07/17 07:30 76 15 88/45 (59) 89 Vapotherm 35.0 90.0 11/07/17 05:30 97.0 Intake and Output 11/08/17 07:00 Intake Total 390 ml Output Total 125 ml Balance 265 ml Intake Oral 390 ml Output Urine Total 125 ml General Appearance: Alert, Awake Neuro: No Gross deficits Cardiovascular: Regular Rate and Rhythm Respiratory: Other (bilateral rales throughout) GI: Soft and Non-Tender Extremities: Warm, Perfused, Edema Integumentary: Generalized Fragile Skin Psych: Alert & Oriented X3 Result Diagram: 11/07/17 0508 11/07/17 0508 Monitor Interpretation: Normal Sinus Rhythm Assessment and Plan Problems: (1) Pneumonitis Status: Acute Assessment & Plan: He presented with a couple weeks of cough and then about a 1.5 weeks of progressive weakness. CXR showed diffuse edema/interstitial prominence and he had new hypoxia. CT of chest shows panlobar ground glass infiltrates bilaterally with a mid and upper lung predominant distribution superimposed on centrilobular and paraseptal emphysema. His O2 requirement initially increased, but has now remained fairly stable. Ceftriaxone and azithromycin have been started. He has tolerated diuresis. Dr. Hannon spoke to Pulmonology at [facility] and they agreed with the plan. Will check urinary antigen for Legionella. If the patient, decompensates despite diuresis/ antibiotics and/or kidney function worsens, then the patient may need to be transferred. (2) Hypercalcemia Status: Acute Assessment & Plan: He was noted to have an elevated calcium level which has improved with hydration/diuresis. The etiology is unclear, but was certainly exacerbated by his hydrochlorothiazide and possible dehydration. PTH pending. He was hydrated, but now is saline locked. Calcium still elevated, but decreased. Continue diuresis as tolerated. Will follow. (3) Acute renal failure Assessment & Plan: He presented with a creatinine of 2.9 up from a baseline of about 1.2. Today, it has decreased to 1.8 after hydration and subsequent diuresis. However, because of the increased O2 requirement and the CT results, IV fluids have been stopped and Lasix given intermittently. See above. (4) Essential hypertension Status: Chronic Assessment & Plan: He has been on chronic treatment with lisinopril and hydrochlorothiazide. Both medications have been held. (5) Hypothyroidism Onset Date: 06/27/2014 Status: Chronic Assessment & Plan: He is on chronic treatment with Synthroid. A TSH is pending. Now on IV levothyroxine. 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 Exam Sepsis Risk: No Definite Risk DILLON STONE MD November 07, 2017 10:12
[2017-11-07] MEDS: cefTRIAXone 2 GM VIAL IVP SCH (12:28)
[2017-11-07] MEDS: AZITHROMYCIN(*) 500 MG 500 MG in NS(*) 0.9% 250 ML BAG 250 ML IVPB SCH (12:47)
[2017-11-08] VITALS (48 sets, daily range): BP systolic 70–139; BP diastolic 33–80
[2017-11-08] MEDS: methylPREDNIS SUCC 125 MG/2ML IVP SCH ×3 (01:18→17:20)
[2017-11-08 05:28] LABS: PLATELET COUNT, AUTOMATED 141 K/uL (150-450)
--- NOTE | 2017-11-08 06:27 | RADIOLOGY IMAGING REPORT ---
FACILITY: [facility] PATIENT NAME: Mehul Majano : 1930 MR: [id number] V: [id number] EXAM DATE: ORDERING PHYSICIAN: DILLON STONE TECHNOLOGIST: Location: [facility] Patient: Mehul Majano : 1930 Visit/Account:[id number] Date of Sevice: 11/08/2017 CHEST SINGLE AP Additional pertinent History: Interstitial pneumonitis COMPARISON STUDIES: 11/07/2017 FINDINGS: Support lines and catheters: EKG wire leads and oxygen tubing Lungs and Pleura: Reidentified and basically unchanged is the diffuse interstitial reticular infiltr ative change noted throughout both lung khanna. An increasing opacity at the right costophrenic angle and obscuration right hemidiaphragm compatible with probable worsening effusion. Heart and vasculature: Negative. Claritza and Mediastinum: Negative. Bones and Chest wall: Negative. Upper Abdomen: Negative. IMPRESSION: 1. Increasing effusion/consolidation the right base. Unchanged appearance to the diffuse interstitial reticular infiltrative change throughout the aerated lung khanna otherwise. Report Dictated By: David Shah MD at 11/08/2017 6:18 AM Report E-Signed By: David Shah MD at 11/08/2017 6:22 AM WSN:[id number]
[2017-11-08] MEDS ORDERED: LEVOTHYROXINE SOD 0.125 MG TAB PO SCH (08:20)
[2017-11-08] MEDS: ENOXAPARIN 30 MG/0.3 ML SYR SC SCH (08:48)
[2017-11-08] MEDS: DOCUSATE SODIUM 100 MG CAP PO SCH ×2 (08:48→20:39)
[2017-11-08] MEDS: POLYETHYLENE GLYCOL 17 GM PKT PO SCH (08:48)
[2017-11-08] MEDS ORDERED: ALLOPURINOL 100 MG TAB PO SCH (09:00)
[2017-11-08] MEDS ORDERED: FUROSEMIDE 20 MG/2 ML VIAL IVP ONE (11:35)
--- NOTE | 2017-11-08 11:36 | Hospitalist Progress Note ---
Subjective Progress Notes Subjective He denies SOB. He did get some sleep. Physical Exam Vital Signs Date Time Temp Pulse Resp B/P (MAP) Pulse Ox O2 Delivery O2 Flow Rate FiO2 11/08/17 08:57 91 Vapotherm 40.0 95.0 11/08/17 08:54 75 11/08/17 08:30 21 116/74 (88) 11/08/17 08:00 96.2 Intake and Output 11/09/17 07:00 Intake Total 500 ml Output Total 140 ml Balance 360 ml Intake Oral 500 ml Output Urine Total 140 ml General Appearance: Alert, Awake, No Acute Distress (, but mild tachypnea) Cardiovascular: Regular Rate and Rhythm Respiratory: Other (Insp crackles in right base, but otherwise clear) Extremities: No Edema Integumentary: No Jaundice, No Cyanosis Result Diagram: 11/08/17 0505 11/08/17 0505 Monitor Interpretation: Normal Sinus Rhythm Assessment and Plan Problems: (1) Pneumonitis Status: Acute Assessment & Plan: He presented with a couple weeks of cough and then about a 1.5 weeks of progressive weakness. CXR showed diffuse edema/interstitial prominence and he had new hypoxia. CT of chest shows panlobar ground glass infiltrates bilaterally with a mid and upper lung predominant distribution superimposed on centrilobular and paraseptal emphysema. His O2 requirement initially increased dramatically but has now remained fairly stable. Methylprednisolone, Ceftriaxone and azithromycin have been started. He has tolerated diuresis. Dr. Borja spoke to Pulmonology at [facility] and they agreed with the plan. Urinary antigen for Legionella pending. CXR today is unchanged except a new right pleural effusion. If the patient, decompensates despite diuresis/antibiotics and/or kidney function worsens, then the patient may need to be transferred. (2) Hypercalcemia Status: Acute Assessment & Plan: He was noted to have an elevated calcium level which has improved with hydration/diuresis. The etiology is unclear, but was certainly exacerbated by his hydrochlorothiazide and possible dehydration. PTH pending. He was hydrated, but now is saline locked. Calcium still elevated when corrected for albumin, but decreased. Continue diuresis as tolerated. Will follow. (3) Acute renal failure Assessment & Plan: He presented with a creatinine of 2.9 up from a baseline of about 1.2. Today, it has decreased to 1.4 after hydration and subsequent diuresis. However, because of the increased O2 requirement and the CT results, IV fluids have been stopped and Lasix given intermittently. See above. (4) Essential hypertension Status: Chronic Assessment & Plan: He has been on chronic treatment with lisinopril and hydrochlorothiazide. Both medications have been held. (5) Hypothyroidism Onset Date: 06/27/2014 Status: Chronic Assessment & Plan: He is on chronic treatment with Synthroid. A TSH mildly elevated at 5.01. Now on back on levothyroxine. 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 Exam Sepsis Risk: Sepsis Risk JEAN CARLOS BORJA MD November 08, 2017 11:36
[2017-11-08] MEDS: cefTRIAXone 2 GM VIAL IVP SCH (11:49)
[2017-11-08] MEDS: AZITHROMYCIN(*) 500 MG 500 MG in NS(*) 0.9% 250 ML BAG 250 ML IVPB SCH (12:49)
[2017-11-08] MEDS ORDERED: SALINE NASAL GEL 14.1 GM TUBE PRN (13:35)
[2017-11-08] MEDS: LEVOTHYROXINE SOD 0.125 MG TAB PO SCH (15:59)
[2017-11-08] MEDS: ALLOPURINOL 100 MG TAB PO SCH (17:20)
[2017-11-08] MEDS: SIMVASTATIN 20 MG TAB PO SCH (20:39)
[2017-11-08] MEDS: ACETAMINOPHEN 325 MG TAB PO PRN (23:35)
[2017-11-09] VITALS (48 sets, daily range): BP systolic 78–129; BP diastolic 46–71
[2017-11-09] MEDS: methylPREDNIS SUCC 125 MG/2ML IVP SCH ×3 (00:23→17:36)
[2017-11-09 05:32] LABS: PLATELET COUNT, AUTOMATED 145 K/uL (150-450)
--- NOTE | 2017-11-09 06:46 | RADIOLOGY IMAGING REPORT ---
FACILITY: [facility] PATIENT NAME: Mehul Majano : 1930 MR: [id number] V: [id number] EXAM DATE: ORDERING PHYSICIAN: JEAN CARLOS BORJA TECHNOLOGIST: Location: [facility] - [place], [place] Patient: Mehul Majano : 1930 Visit/Account:[id number] Date of Sevice: 11/09/2017 CHEST SINGLE AP Additional pertinent History: Pneumonitis COMPARISON STUDIES: A 09/08/2017 FINDINGS: Support lines and catheters: EKG wire leads Lungs and Pleura: Persistent coarse interstitial reticular infiltrative changes within the lung with stable findings in the left lung and improving aeration in the right lung particularly the right low er lung laterally. Heart and vasculature: Negative. Claritza and Mediastinum: Negative. Bones and Chest wall: Negative. Upper Abdomen: Negative. IMPRESSION: 1. Persistent unchanged appearance of the chest the left lung. Improvement in the aeration and degree of interstitial infiltrative change in the right lung as described. Report Dictated By: David Shah MD at 11/09/2017 6:38 AM Report E-Signed By: David Shah MD at 11/09/2017 6:42 AM WSN:[id number]
[2017-11-09] MEDS ORDERED: MORPHINE 2 MG/ML SYR IVP PRN (08:05)
--- NOTE | 2017-11-09 08:23 | Antimicrobial Stewardship Note ---
Antimicrobial Stewardship Note Note Clinical Pharmacist Note: 86 yo male who presented with weakness, SOB, and low blood pressure. Chest Xray: showed interstitial infiltrates WBC 13.1 -->17.8 on methylprednisolone LFTs have increased afebrile Antibiotics: Ceftriaxone 2g IVP, azithromycin 500 mg IV Urinary Ag for legionella pending 1. Interstitial Pneumonia- on azithromycin/ceftriaxone day 4 of therapy, started on 11/06/17, recommend course of 7-10 days. Watch LFTs could be ceftriaxone contributing, also on simvastatin/APAP. Molly Murguia, PharmD, BCOP MOLLY MURGUIA November 09, 2017 08:23
[2017-11-09] MEDS: DOCUSATE SODIUM 100 MG CAP PO SCH ×2 (08:34→20:44)
[2017-11-09] MEDS: ENOXAPARIN 30 MG/0.3 ML SYR SC SCH (08:34)
[2017-11-09] MEDS: POLYETHYLENE GLYCOL 17 GM PKT PO SCH (08:34)
--- NOTE | 2017-11-09 10:40 | Hospitalist Progress Note ---
Subjective Progress Notes Subjective He reports feeling improved. Less dyspneic. Appetite improving. No fevers. Physical Exam Vital Signs Date Time Temp Pulse Resp B/P (MAP) Pulse Ox O2 Delivery O2 Flow Rate FiO2 11/09/17 10:07 60 11/09/17 10:00 13 96/50 (65) 95 Vapotherm 35.0 90.0 11/09/17 08:30 96.2 Intake and Output 11/10/17 07:00 Output Total 120 ml Balance -120 ml Output Urine Total 120 ml General Appearance: Alert, Awake Cardiovascular: Regular Rate and Rhythm Respiratory: Other (rales at both bases (improved in upper khanna)) GI: Soft and Non-Tender Extremities: Warm, Perfused Psych: Alert & Oriented X3 Result Diagram: 11/09/17 0515 11/09/17 05 Monitor Interpretation: Normal Sinus Rhythm Assessment and Plan Problems: (1) Pneumonitis Status: Acute Assessment & Plan: He presented with a couple weeks of cough and then about a 1.5 weeks of progressive weakness. CXR showed diffuse edema/interstitial prominence and he had new hypoxia. CT of chest shows panlobar ground glass infiltrates bilaterally with a mid and upper lung predominant distribution superimposed on centrilobular and paraseptal emphysema. His O2 requirement initially increased dramatically, but has remained fairly stable and is now improving. Methylprednisolone, Ceftriaxone and azithromycin have been started. He has tolerated diuresis fairly well. Dr. Hannon spoke to Pulmonology at [facility] and they agreed with the plan. Urinary antigen for Legionella pending. CXR today is improved as compared to yesterday. If the patient, decompensates despite diuresis/antibiotics and/or kidney function worsens, then the patient may need to be transferred. (2) Hypercalcemia Status: Acute Assessment & Plan: He was noted to have an elevated calcium level which has improved with hydration/diuresis. The etiology is unclear, but was certainly exacerbated by his hydrochlorothiazide and possible dehydration. PTH still pending. He was hydrated, but now is saline locked. Continue diuresis as tolerated. Will follow. (3) Acute renal failure Assessment & Plan: He presented with a creatinine of 2.9 up from a baseline of about 1.2. Today, it is stable at 1.4 after hydration and subsequent diuresis. However, because of the increased O2 requirement and the CT results, IV fluids have been stopped and Lasix given intermittently. See above. (4) Essential hypertension Status: Chronic Assessment & Plan: He has been on chronic treatment with lisinopril and hydrochlorothiazide. Both medications have been held. (5) Hypothyroidism Onset Date: 06/27/2014 Status: Chronic Assessment & Plan: He is on chronic treatment with Synthroid. A TSH mildly elevated at 5.01. Now on back on levothyroxine. 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 Exam Sepsis Risk: No Definite Risk DILLON STONE MD November 09, 2017 10:39
[2017-11-09] MEDS: cefTRIAXone 2 GM VIAL IVP SCH (11:50)
[2017-11-09] MEDS: AZITHROMYCIN(*) 500 MG 500 MG in NS(*) 0.9% 250 ML BAG 250 ML IVPB SCH (12:12)
--- NOTE | 2017-11-09 15:13 | RADIOLOGY IMAGING REPORT ---
FACILITY: [facility] PATIENT NAME: KAREN NORMAN : [id number] MR: [id number] V: [id number] EXAM DATE: ORDERING PHYSICIAN: NAOMY DELCID TECHNOLOGIST: Soledad Gipson EXAMINATION:TWO-DIMENSIONAL ECHOCARDIOGRAPH REASON:CHF 2D Measurements (normal values in centimeters) LV endLV endRV endVent.LV PostAorticLeftPercent DiastolicSystolicDiastolicSeptumWallRootAtriumShortening (3.5-5.7)(0.9-2.6)(0.6-1.1)(0.6-1.1)(2.0-3.7)(1.9-4.0)(25-35%) [id number]% STROKE VOLUME: 33ml ESTIMATED EJECTION FRACTION:50-55% LEFT VENTRICLE: Ejection fraction: 55-60%, normal wall motion, normal size & LV wall thickness. Normal diastolic function. RIGHT VENTRICLE: Mildly dilated with preserved function. RIGHT ATRIUM: Normal size without masses. LEFT ATRIUM: Normal size without masses. AORTIC VALVE: Trileaflet valve with no stenosis or regurgitation. PULMONIC VALVE: Poorly visualized but no significant regurgitation or stenosis noted. MITRAL VALVE: Normal structure & function with no significant stenosis or regurgitation. TRICUSPID VALVE: Mild tricuspid regurgitation, RVSP estimated at 40-45mm Hg. IVC is normal size & collapses well with an estimated right atrial pressure of 5mm Hg. AORTIC VALVE: Normal size without aneurysm. PERICARDIUM: No pericardial effusion noted. OVERALL IMPRESSION: 1. Ejection fraction 50-55%, mild right ventricular dilation with preserved function. Mild pulmonary hypertension with an RVSP of 41mm Hg along with mild to moderate tricuspid regurgitation. Dictated by: Curtis Velásquez M.D. on 11/08/2017 at 15:00 Transcribed by: MYNOR on 11/09/2017 at 7:04 Approved by: Curtis Velásquez M.D. on 11/09/2017 at 15:13 [facility]
[2017-11-09] MEDS: LEVOTHYROXINE SOD 0.125 MG TAB PO SCH (16:13)
[2017-11-09] MEDS: ALLOPURINOL 100 MG TAB PO SCH (17:36)
[2017-11-09] MEDS: ACETAMINOPHEN 325 MG TAB PO PRN (19:23)
[2017-11-09] MEDS: SIMVASTATIN 20 MG TAB PO SCH (20:44)
[2017-11-10] VITALS (30 sets, daily range): BP systolic 84–133; BP diastolic 42–80
[2017-11-10] MEDS: methylPREDNIS SUCC 125 MG/2ML IVP SCH ×3 (01:16→17:01)
[2017-11-10] MEDS: ACETAMINOPHEN 325 MG TAB PO PRN (01:16)
[2017-11-10 05:08] LABS: PLATELET COUNT, AUTOMATED 136 K/uL (150-450)
--- NOTE | 2017-11-10 05:35 | RADIOLOGY IMAGING REPORT ---
FACILITY: [facility] PATIENT NAME: Mehul Majano : 1930 MR: [id number] V: [id number] EXAM DATE: ORDERING PHYSICIAN: DILLON STONE TECHNOLOGIST: Location: [place] [facility] - [place] Patient: Mehul Majano : 1930 Visit/Account:[id number] Date of Sevice: 11/10/2017 SINGLE AP RADIOGRAPH OF THE CHEST 11/10/2017 6:00 AM. INDICATION: pneumonia/hypoxia COMPARISON: Yesterday. FINDINGS: Extensive bilateral predominantly interstitial opacification is not significantly changed. No appare nt pleural effusion or pneumothorax. Heart size is normal. IMPRESSION: No significant change. Report Dictated By: Honorio Espitia MD at 11/10/2017 5:29 AM Report E-Signed By: Honorio Espitia MD at 11/10/2017 5:31 AM WSN:[id number]
[2017-11-10] MEDS: ENOXAPARIN 30 MG/0.3 ML SYR SC SCH (08:19)
[2017-11-10] MEDS: DOCUSATE SODIUM 100 MG CAP PO SCH ×2 (08:19→21:24)
[2017-11-10] MEDS: POLYETHYLENE GLYCOL 17 GM PKT PO SCH (08:19)
[2017-11-10] MEDS: PANTOPRAZOLE SOD 40 MG TABEC PO SCH (08:19)
[2017-11-10] MEDS: cefTRIAXone 2 GM VIAL IVP SCH (11:56)
[2017-11-10] MEDS ORDERED: NS(*) 0.9% 500 ML BAG 500 ML ONE (12:07)
[2017-11-10] MEDS: AZITHROMYCIN(*) 500 MG 500 MG in NS(*) 0.9% 250 ML BAG 250 ML IVPB SCH (12:31)
--- NOTE | 2017-11-10 13:13 | Hospitalist Progress Note ---
Subjective Progress Notes Subjective This patient was admitted for hypercalcemia. He was transferred to the ICU secondary to increased oxygen demands. Patient Complains of: Cardiovascular: No: Chest Pain Respiratory: Shortness of Breath Physical Exam Vital Signs Date Time Temp Pulse Resp B/P (MAP) Pulse Ox O2 Delivery O2 Flow Rate FiO2 11/10/17 12:09 93 Vapotherm 35.0 60.0 11/10/17 12:05 65 11/10/17 12:00 17 122/62 (82) 11/10/17 09:00 96.8 Intake and Output 11/11/17 07:00 Output Total 700 ml Balance -700 ml Output Urine Total 700 ml Neuro: No Gross deficits Eyes: PERRLA Cardiovascular: Regular Rate and Rhythm Respiratory: Other (Bilateral breath sounds present.) GI: Soft and Non-Tender Extremities: No Edema Integumentary: No Cyanosis Result Diagram: 11/10/17 0455 11/10/17 0455 Monitor Interpretation: Normal Sinus Rhythm Assessment and Plan Problems: (1) Pneumonitis Status: Acute Assessment & Plan: He presented with a couple weeks of cough and then about a one and one half weeks of progressive weakness. His chest x-ray and CT scan have shown diffuse edema/interstitial prominence and he has new hypoxia. Dr. Hannon spoke to Pulmonology at [facility] and they agreed with the plan. A urinary antigen for legionella was negative. He is currently on treatment with ceftriaxone, azithromycin, and IV steroids. Testing for rheumatoid factor and YUMIKO were ordered for tomorrow morning. He may require evaluation by pulmonology. (2) Hypercalcemia Status: Acute Assessment & Plan: He was noted to have an elevated calcium level which has improved with hydration/diuresis. The etiology is unclear, but was certainly exacerbated by his hydrochlorothiazide and possible dehydration. PTH still pending. His calcium has improved with IV fluids. (3) Acute renal failure Assessment & Plan: He did present with an increased creatinine, which has been improving. (4) Essential hypertension Status: Chronic Assessment & Plan: He has been on chronic treatment with lisinopril and hydrochlorothiazide. Both medications have been held. (5) Hypothyroidism Onset Date: 06/27/2014 Status: Chronic Assessment & Plan: He is on chronic treatment with Synthroid. A TSH mildly elevated at 5.01. He will require a repeat TSH in 4-6 weeks. 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 Exam Sepsis Risk: Sepsis Risk NAOMY DELCID DO November 10, 2017 13:13
[2017-11-10] MEDS: LEVOTHYROXINE SOD 0.125 MG TAB PO SCH (16:02)
[2017-11-10] MEDS: ALLOPURINOL 100 MG TAB PO SCH (17:01)
[2017-11-10] MEDS: SIMVASTATIN 20 MG TAB PO SCH (21:24)
[2017-11-11] VITALS (17 sets, daily range): BP systolic 86–146; BP diastolic 42–78
[2017-11-11] MEDS: methylPREDNIS SUCC 125 MG/2ML IVP SCH ×3 (01:08→16:19)
[2017-11-11 05:24] LABS: PLATELET COUNT, AUTOMATED 136 K/uL (150-450)
--- NOTE | 2017-11-11 07:31 | Medical Nutrition Therapy ---
Nutrition Anthropometrics Height (Inches): 70.00 Height (Calculated Centimeters: 177.578720 Weight (Pounds): 186 Weight (Calculated Kilograms): 84.510 Hussein Nutrition Score: Adequate Hussein Nutrition Risk Score: 17 Dietary Referral Nutrition Risk Factors: Nutrition Risk Comment: Physical Findings Physical Appearance: Overweight BMI 25-29 Skin Appearance Skin Appearance: Edema Edema Location Modifier: Both Edema Location: Foot Type of Edema: Degree of Edema: 1+ Gastrointestinal Symptoms GI Symtoms: Constipation Tube Present: Bowel Sounds: Recent Bowel Pattern: Stool Characteristics: Nutritional Diagnosis Nutritional Risk Acuity 1: Acute/ES Renal Nutritional Risk Acuity 4: Good Appetite Past Medical History: Gouty arthropathy, Hypothyroidism, Benign prostatic hyperplasia (BPH), Squamous cell carcinoma of scalp, Essential hypertension Nutritional Acuity: 1-High Nutrition Diagnosis: Decreased Nutrient Needs Nutrition Etiology: Physiological Causes Nutrition Problem/Etiology/Sym: Decreased protein, fluids needs r/t dxc ARF aEB BUN 44, creatinine 1.8 Energy Requirement: 1980 ([place]- [place] Jeor) Protein Requirement: 66 (.8gm/kg) Fluid Requirement: 2000 (25ml/kg) Diet Type: Diet as Tolerated YURI/REG Nutrition Intervention: Cont diet as ordered, Encourage intake Nutrition Monitoring & Eval Nutrition Goals: Eat 75-100% Meal RD Patient Assessment Time: [address] Assessment Type: RD Re-Assessment Patient Nutrition Acuity: 1-High Follow Up Date: November 13, 2017 Nutritional Comment: Pt admitted with Hypercalcemia, ARF, and Pulmonary edema. ARF should resolve with hydration. Low H/H, Ca+ 11.7, Alb 3.1, BNP 198. Pt overwt with BMI of 26.7. Receiving YURI and consuming 100%. Follow intake, labs, etc. 11/07 Pt cont dx of ARF. BUN 44, creatinine 1.8 which has improved but not resolved. Pt recieved duiretic but now is stopped. Pt has non-pitting edema LE with a 5# wt gain from admission. Anticipate wt loss when edema resolved. Pt is eating 75- 100% of meals. alb low at 2.1, Na low at 134. Will cont to monitor and encourage intake. 11/10 Pt cont YURI/REG diet with 100% intake. Pt appetite has improved. Less dyspenecic. No fever. Ca has improved with IV fluids and creatininie continues to decrease. Notable labs low Na 130, slightly elevated liver enzymes, low alb 2.3, and elevated random blood glucose 170. Continue to monitor pt progress and encourage intake. DEJA MARION November 10, 2017 14:01
[2017-11-11] MEDS: POLYETHYLENE GLYCOL 17 GM PKT PO SCH (09:08)
[2017-11-11] MEDS: ENOXAPARIN 30 MG/0.3 ML SYR SC SCH (09:09)
[2017-11-11] MEDS: PANTOPRAZOLE SOD 40 MG TABEC PO SCH (09:11)
[2017-11-11] MEDS: DOCUSATE SODIUM 100 MG CAP PO SCH ×2 (09:12→21:06)
--- NOTE | 2017-11-11 10:30 | Hospitalist Progress Note ---
Subjective Progress Notes Subjective He reports not sleeping well o/n. He had some mild ROMANO with getting up and going to the bathroom. He has been switched to high flow nasal canula this morning without any problems. Physical Exam Vital Signs Date Time Temp Pulse Resp B/P (MAP) Pulse Ox O2 Delivery O2 Flow Rate FiO2 11/11/17 09:19 92 High-Flow Nasal Cannula 14.0 11/11/17 07:30 60.0 11/11/17 06:00 65 16 111/62 (78) 11/11/17 03:00 97.4 Intake and Output 11/12/17 07:00 Output Total 250 ml Balance -250 ml Output Urine Total 250 ml General Appearance: Alert, Awake, No Acute Distress Cardiovascular: Regular Rate and Rhythm Respiratory: Other (Moving air well. Insp crackles in right middle) Extremities: No Edema Result Diagram: 11/11/17 0510 11/11/17 0510 Monitor Interpretation: Normal Sinus Rhythm Assessment and Plan Problems: (1) Pneumonitis Status: Acute Assessment & Plan: He presented with a couple weeks of cough and then about a one and one half weeks of progressive weakness. His chest x-ray and CT scan have shown diffuse edema/interstitial prominence and had new, severe hypoxia. A urinary antigen for legionella was negative. He is currently on treatment with ceftriaxone, azithromycin, and IV steroids and having significant improvement. He initially was diuresed. He is no longer requiring the Vapotherm to maintain oxygenation. Dr. Borja spoke to Pulmonology at [facility] and they agreed with the plan. Testing for rheumatoid factor and YUMIKO were ordered. (2) Hypercalcemia Status: Acute Assessment & Plan: He was noted to have an elevated calcium level which has improved with hydration/diuresis. The etiology is unclear, but was certainly exacerbated by his hydrochlorothiazide and possible dehydration. PTH still pending. His calcium has improved with IV fluids. (3) Acute renal failure Status: Resolved Assessment & Plan: He did present with an increased creatinine, which has been improving. (4) Essential hypertension Status: Chronic Assessment & Plan: He has been on chronic treatment with lisinopril and hydrochlorothiazide. Both medications have been held. (5) Hypothyroidism Onset Date: 06/27/2014 Status: Chronic Assessment & Plan: He is on chronic treatment with Synthroid. A TSH mildly elevated at 5.01. He will require a repeat TSH in 4-6 weeks. 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 Exam Sepsis Risk: No Definite Risk JEAN CARLOS BORJA MD November 11, 2017 10:30
[2017-11-11] MEDS: cefTRIAXone 2 GM VIAL IVP SCH (11:38)
[2017-11-11] MEDS: AZITHROMYCIN(*) 500 MG 500 MG in NS(*) 0.9% 250 ML BAG 250 ML IVPB SCH (12:40)
[2017-11-11] MEDS: ALLOPURINOL 100 MG TAB PO SCH (16:18)
[2017-11-11] MEDS: LEVOTHYROXINE SOD 0.125 MG TAB PO SCH (16:18)
[2017-11-11] MEDS: MELATONIN 3 MG TAB PO SCH (21:06)
[2017-11-11] MEDS: SIMVASTATIN 20 MG TAB PO SCH (21:06)
[2017-11-12] MEDS: methylPREDNIS SUCC 125 MG/2ML IVP SCH (00:51)
[2017-11-12 03:10] VITALS: BP 135/65
[2017-11-12 06:40] LABS: PLATELET COUNT, AUTOMATED 130 K/uL (150-450)
--- NOTE | 2017-11-12 06:48 | RADIOLOGY IMAGING REPORT ---
FACILITY: [facility] PATIENT NAME: Mehul Majano : 1930 MR: [id number] V: [id number] EXAM DATE: ORDERING PHYSICIAN: JEAN CARLOS BORJA TECHNOLOGIST: Location: [facility] [place] Patient: Mehul Majano : 1930 Visit/Account:[id number] Date of Sevice: 11/12/2017 CHEST SINGLE AP HISTORY: Pneumonitis COMPARISON: 11/10/2017 FINDINGS: A single portable AP view of the chest is obtained. Lines/tubes: None. Lungs/pleura: Stable patchy opacities throughout both lungs. No pleural effusion or pneumothorax. Heart: Negative. Mediastinum: Negative. Bony structures/body wall: Degenerative changes in the spine. No acute osseous findings. IMPRESSION: No significant change compared with 11/10/2017. Report Dictated By: Domenico Ellison MD at 11/12/2017 6:40 AM Report E-Signed By: Domenico Ellison MD at 11/12/2017 6:44 AM WSN:[id number]
[2017-11-12 07:34] VITALS: BP 117/60
[2017-11-12] MEDS: POLYETHYLENE GLYCOL 17 GM PKT PO SCH (09:00)
[2017-11-12] MEDS ORDERED: FUROSEMIDE 40 MG/4 ML VIAL IVP ONE (09:00)
[2017-11-12] MEDS: ENOXAPARIN 30 MG/0.3 ML SYR SC SCH (09:22)
[2017-11-12] MEDS: DOCUSATE SODIUM 100 MG CAP PO SCH ×2 (09:31→21:09)
[2017-11-12] MEDS: predniSONE 20 MG TAB PO SCH (09:31)
[2017-11-12] MEDS: PANTOPRAZOLE SOD 40 MG TABEC PO SCH (09:31)
--- NOTE | 2017-11-12 11:14 | Hospitalist Progress Note ---
Subjective Progress Notes Subjective This patient was admitted for hypercalcemia. He continues to have an increased oxygen demand. Patient Complains of: Cardiovascular: No: Chest Pain Respiratory: Shortness of Breath Physical Exam Vital Signs Date Time Temp Pulse Resp B/P (MAP) Pulse Ox O2 Delivery O2 Flow Rate FiO2 11/12/17 07:34 97.9 58 14 117/60 (79) 93 High-Flow Nasal Cannula 15.0 11/11/17 07:30 60.0 Intake and Output 11/13/17 07:00 Output Total 250 ml Balance -250 ml Output Urine Total 250 ml # Bowel Movements 1 Cardiovascular: Regular Rate and Rhythm Respiratory: Other (Bilateral breath sounds present.) Extremities: No Edema Integumentary: No Cyanosis Result Diagram: 11/12/1753211/12/17532 Imaging Chest x-ray reviewed. Monitor Interpretation: Normal Sinus Rhythm Assessment and Plan Problems: (1) Pneumonitis Status: Acute Assessment & Plan: He presented with a couple weeks of cough and then about a one and one half weeks of progressive weakness. His chest x-ray and CT scan have shown diffuse edema/interstitial prominence and had new, severe hypoxia. A urinary antigen for legionella was negative. He is currently on treatment with ceftriaxone, azithromycin, and IV steroids. He initially was diuresed. He is no longer requiring the Vapotherm to maintain oxygenation. Dr. Hannon spoke to Pulmonology at [facility] and they agreed with the plan. Testing for rheumatoid factor and YUMIKO were ordered. (2) Hypercalcemia Status: Acute Assessment & Plan: He was noted to have an elevated calcium level which has improved with hydration/diuresis. The etiology is unclear, but was certainly exacerbated by his hydrochlorothiazide and possible dehydration. PTH still pending. His calcium has improved with IV fluids. (3) Acute renal failure Status: Resolved Assessment & Plan: He did present with an increased creatinine, which has been improving. (4) Essential hypertension Status: Chronic Assessment & Plan: He has been on chronic treatment with lisinopril and hydrochlorothiazide. Both medications have been held. (5) Hypothyroidism Onset Date: 06/27/2014 Status: Chronic Assessment & Plan: He is on chronic treatment with Synthroid. A TSH mildly elevated at 5.01. He will require a repeat TSH in 4-6 weeks. 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 Exam Sepsis Risk: No Definite Risk NAOMY DELCID DO November 12, 2017 11:14
--- NOTE | 2017-11-12 11:59 | Medical Nutrition Therapy ---
Nutrition Anthropometrics Height (Inches): 70.00 Height (Calculated Centimeters: 177.269753 Weight (Pounds): 192 Weight (Calculated Kilograms): 87.090 Hussein Nutrition Score: Adequate Hussein Nutrition Risk Score: 17 Dietary Referral Nutrition Risk Factors: Nutrition Risk Comment: Physical Findings Physical Appearance: Overweight BMI 25-29 Skin Appearance Skin Appearance: Edema Edema Location Modifier: Both Edema Location: Foot Type of Edema: Degree of Edema: 1+ Gastrointestinal Symptoms GI Symtoms: Constipation Tube Present: Bowel Sounds: Recent Bowel Pattern: Stool Characteristics: Nutritional Diagnosis Nutritional Risk Acuity 4: Good Appetite Past Medical History: Gouty arthropathy, Hypothyroidism, Benign prostatic hyperplasia (BPH), Squamous cell carcinoma of scalp, Essential hypertension Nutritional Acuity: 2-Moderate Nutrition Diagnosis: Decreased Nutrient Needs Nutrition Etiology: Physiological Causes Nutrition Problem/Etiology/Sym: Decreased protein, fluids needs r/t dxc ARF aEB BUN 44, creatinine 1.8 Energy Requirement: 1980 ([place]- [facility] Jeor) Protein Requirement: 66 (.8gm/kg) Fluid Requirement: 2000 (25ml/kg) Diet Type: Diet as Tolerated YURI/REG Nutrition Intervention: Cont diet as ordered, Encourage intake Additional Diet Restrictions: PUT PROTEIN POWDER IN ALL APPROPRIATE FOODS Nutrition Monitoring & Eval Nutrition Goals: Eat 75-100% Meal Nutrition Follow-Up: Good Intake RD Patient Assessment Time: [address] Assessment Type: RD Re-Assessment Patient Nutrition Acuity: 2-Moderate Follow Up Date: November 16, 2017 Nutritional Comment: Pt admitted with Hypercalcemia, ARF, and Pulmonary edema. ARF should resolve with hydration. Low H/H, Ca+ 11.7, Alb 3.1, BNP 198. Pt overwt with BMI of 26.7. Receiving YURI and consuming 100%. Follow intake, labs, etc. 11/07 Pt cont dx of ARF. BUN 44, creatinine 1.8 which has improved but not resolved. Pt recieved duiretic but now is stopped. Pt has non-pitting edema LE with a 5# wt gain from admission. Anticipate wt loss when edema resolved. Pt is eating 75- 100% of meals. alb low at 2.1, Na low at 134. Will cont to monitor and encourage intake. 11/10 Pt cont YURI/REG diet with 100% intake. Pt appetite has improved. Less dyspenecic. No fever. Ca has improved with IV fluids and creatininie continues to decrease. Notable labs low Na 130, slightly elevated liver enzymes, low alb 2.3, and elevated random blood glucose 170. Continue to monitor pt progress and encourage intake. MT 11/12 Pt on regular diet and eating 75- 100%. Alb cont to decline and currently 1.9. Will put protein powder in appropriate foods to increase protein intake. When Calcium corrected for low alb, calcuim cont elevated at 11.1. Dr reports ARF is resolved with creatinine 1.1. BUN cont elevated at 39. Wt is up 14# since admission. Pt has nonpitting edema LE and 1+ edema to feet. Will cont to monitor and encourage intake. BRIDGETT CHENG November 12, 2017 11:59
[2017-11-12] MEDS: cefTRIAXone 2 GM VIAL IVP SCH (12:45)
[2017-11-12] MEDS: AZITHROMYCIN(*) 500 MG 500 MG in NS(*) 0.9% 250 ML BAG 250 ML IVPB SCH (12:45)
[2017-11-12] MEDS ORDERED: NS(*) 0.9% 500 ML BAG 500 ML ONE (12:50)
[2017-11-12 15:40] VITALS: BP 158/85
[2017-11-12] MEDS: ALLOPURINOL 100 MG TAB PO SCH (16:46)
[2017-11-12] MEDS: LEVOTHYROXINE SOD 0.125 MG TAB PO SCH (16:46)
[2017-11-12 19:37] VITALS: BP 151/78
[2017-11-12] MEDS: SIMVASTATIN 20 MG TAB PO SCH (21:09)
[2017-11-12] MEDS: MELATONIN 3 MG TAB PO SCH (21:09)
[2017-11-12] MEDS: NITROGLYCERIN 0.4 MG SUBL SL PRN ×2 (22:04→22:10)
[2017-11-12 22:22] VITALS: BP 116/64
[2017-11-13 04:49] VITALS: BP 152/76
[2017-11-13] MEDS ORDERED: SALINE 0.65% NAS SPR 44 ML BTL PRN (04:55)
--- NOTE | 2017-11-13 04:55 | EKG ---
FACILITY: [facility] PATIENT NAME: KAREN NORMAN : [id number] MR: [id number] V: [id number] EXAM DATE: ORDERING PHYSICIAN: NAOMY DELCID TECHNOLOGIST: AB Mejia Reason : STAT Blood Pressure : / mmHG Vent. Rate : 077 BPM Atrial Rate : 077 BPM P-R Int : 136 ms QRS Dur : 082 ms QT Int : 374 ms P-R-T Axes : 046 051 016 degrees QTc Int : 423 ms Normal sinus rhythm T wave abnormality, consider anterior ischemia Abnormal ECG When compared with ECG of 05-NOV-2017 14:32, T wave inversion more evident in Anterior leads Confirmed by NAOMY DELCID ([id number]) on 11/13/2017 7:09:46 AM Referred By: BHAVIN Confirmed By:NAOMY DELCID
[2017-11-13 05:43] LABS: PLATELET COUNT, AUTOMATED 155 K/uL (150-450)
[2017-11-13] MEDS: MORPHINE 2 MG/ML SYR IVP PRN ×3 (06:22→22:06)
[2017-11-13 07:52] VITALS: BP 116/60
[2017-11-13] MEDS: predniSONE 20 MG TAB PO SCH (09:17)
[2017-11-13] MEDS: POLYETHYLENE GLYCOL 17 GM PKT PO SCH (09:17)
[2017-11-13] MEDS: DOCUSATE SODIUM 100 MG CAP PO SCH ×2 (09:17→20:44)
[2017-11-13] MEDS: ENOXAPARIN 30 MG/0.3 ML SYR SC SCH (09:17)
[2017-11-13] MEDS: PANTOPRAZOLE SOD 40 MG TABEC PO SCH (09:17)
--- NOTE | 2017-11-13 09:23 | Hospitalist Progress Note ---
Subjective Progress Notes Subjective He reports a couple of episodes of chest discomfort - none currently. Oxygen requirement has improved. He states he has had a sensation of a lump in right side of throat. Physical Exam Vital Signs Date Time Temp Pulse Resp B/P (MAP) Pulse Ox O2 Delivery O2 Flow Rate FiO2 11/13/17 07:57 80 11/13/17 07:54 High-Flow Nasal Cannula 12.0 11/13/17 07:52 98.1 71 20 116/60 (78) 11/11/17 07:30 60.0 General Appearance: Alert, Awake Neuro: No Gross deficits Neck: No Masses, Other (no adenopathy) Cardiovascular: Regular Rate and Rhythm (distant tones) Respiratory: Other (few rales at both bases/no wheezes) Chest: No Tenderness GI: Soft and Non-Tender Extremities: Warm, Perfused, Edema (trace both feet and ankles) Psych: Alert & Oriented X3 Result Diagram: 11/13/17 0515 11/13/17 0515 Monitor Interpretation: Normal Sinus Rhythm Assessment and Plan Problems: (1) Pneumonitis Status: Acute Assessment & Plan: He presented with a couple weeks of cough and then about a one and one half weeks of progressive weakness. His chest x-ray and CT scan have shown diffuse edema/interstitial prominence. He has had severe hypoxia. A urinary antigen for legionella was negative. He is currently on treatment with ceftriaxone, azithromycin, and IV steroids. He initially was diuresed. He is no longer requiring the Vapotherm to maintain oxygenation. Dr. Hannon spoke to Pulmonology at [facility] and they agreed with the plan. Rheumatoid factor and YUMIKO are both negative as well. (2) Hypercalcemia Status: Acute Assessment & Plan: He was noted to have an elevated calcium level which has improved with hydration/diuresis. The etiology is unclear, but was certainly exacerbated by his hydrochlorothiazide and possible dehydration. PTH related peptide is elevated. His calcium has normalized with IV fluids. (3) Acute renal failure Status: Resolved Assessment & Plan: He did present with an increased creatinine, which has been improving. (4) Essential hypertension Status: Chronic Assessment & Plan: He has been on chronic treatment with lisinopril and hydrochlorothiazide. Both medications have been held. (5) Hypothyroidism Onset Date: 06/27/2014 Status: Chronic Assessment & Plan: He is on chronic treatment with Synthroid. A TSH mildly elevated at 5.01. He will require a repeat TSH in 4-6 weeks. 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 (7) Chest discomfort Status: Acute Assessment & Plan: Initial troponins were 0.012 and 0.020. EKG shows some anterior T waves changes. Will check an additional troponin this AM. Exam Sepsis Risk: No Definite Risk DILLON STONE MD November 13, 2017 09:23
[2017-11-13 11:53] VITALS: BP 122/70
[2017-11-13] MEDS: AZITHROMYCIN(*) 500 MG 500 MG in NS(*) 0.9% 250 ML BAG 250 ML IVPB SCH (12:08)
[2017-11-13] MEDS: cefTRIAXone 2 GM VIAL IVP SCH (12:08)
[2017-11-13 15:24] VITALS: BP 115/64
[2017-11-13] MEDS: LEVOTHYROXINE SOD 0.125 MG TAB PO SCH (15:36)
[2017-11-13] MEDS: ALLOPURINOL 100 MG TAB PO SCH (18:37)
[2017-11-13 19:09] VITALS: BP 118/55
[2017-11-13] MEDS: MELATONIN 3 MG TAB PO SCH (20:44)
[2017-11-13] MEDS: SIMVASTATIN 20 MG TAB PO SCH (20:44)
[2017-11-13 22:00] VITALS: BP 146/73
[2017-11-14 02:46] VITALS: BP 140/87
[2017-11-14 06:14] LABS: PLATELET COUNT, AUTOMATED 146 K/uL (150-450)
[2017-11-14] MEDS ORDERED: predniSONE 20 MG TAB PO SCH (09:00)
[2017-11-14] MEDS: DOCUSATE SODIUM 100 MG CAP PO SCH ×2 (09:01→20:50)
[2017-11-14] MEDS: PANTOPRAZOLE SOD 40 MG TABEC PO SCH (09:01)
[2017-11-14] MEDS: POLYETHYLENE GLYCOL 17 GM PKT PO SCH (09:02)
[2017-11-14] MEDS: ENOXAPARIN 30 MG/0.3 ML SYR SC SCH (09:02)
[2017-11-14] MEDS: MORPHINE 2 MG/ML SYR IVP PRN (09:11)
--- NOTE | 2017-11-14 11:25 | Hospitalist Progress Note ---
Subjective Progress Notes Subjective Slowly improving. No new complaints. Physical Exam Vital Signs Date Time Temp Pulse Resp B/P (MAP) Pulse Ox O2 Delivery O2 Flow Rate FiO2 11/14/17 08:59 79 11/14/17 08:08 High-Flow Nasal Cannula 10.0 11/14/17 07:08 98.5 77 12 11/11/17 07:30 60.0 Intake and Output 11/15/17 07:00 Intake Total 356 ml Output Total 325 ml Balance 31 ml Intake Oral 356 ml Output Urine Total 325 ml # Voids 2 General Appearance: Alert, Awake, No Acute Distress, Afebrile Neuro: No Gross deficits Eyes: PERRLA Cardiovascular: Regular Rate and Rhythm Respiratory: Other (Scattered fine crackles. No wheezing or rales.) GI: Soft and Non-Tender Extremities: Warm, Perfused, Edema (1-2+ both LE.) Psych: Appropriate Mood & Affect Result Diagram: 11/14/17 0540 11/14/17 0540 Monitor Interpretation: Normal Sinus Rhythm Assessment and Plan Problems: (1) Pneumonitis Status: Acute Assessment & Plan: He presented with a couple weeks of cough and then about a one and one half weeks of progressive weakness. His chest x-ray and CT scan have shown diffuse edema/interstitial prominence. He has had severe hypoxia. A urinary antigen for legionella was negative. He is currently on treatment with ceftriaxone, azithromycin, and IV steroids. He initially was diuresed. He is no longer requiring the Vapotherm to maintain oxygenation. Dr. Hannon spoke to Pulmonology at [facility] and they agreed with the plan. Rheumatoid factor and YUMIKO are both negative as well. He is now on oral prednisone. Will gradually decrease his dose and monitor closely. (2) Hypercalcemia Status: Acute Assessment & Plan: He was noted to have an elevated calcium level which has improved with hydration/diuresis. The etiology is unclear, but was certainly exacerbated by his hydrochlorothiazide and possible dehydration. PTH related peptide is elevated. His calcium has normalized with IV fluids. (3) Acute renal failure Status: Resolved Assessment & Plan: He did present with an increased creatinine, which has been improving. (4) Essential hypertension Status: Chronic Assessment & Plan: He has been on chronic treatment with lisinopril and hydrochlorothiazide. Both medications were held initially. His BP has increased but overall is reasonable. Continue to monitor. (5) Hypothyroidism Onset Date: 06/27/2014 Status: Chronic Assessment & Plan: He is on chronic treatment with Synthroid. A TSH mildly elevated at 5.01. He will require a repeat TSH in 4-6 weeks. 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 (7) Chest discomfort Status: Acute Assessment & Plan: Initial troponins were 0.012 and 0.020. EKG showed some anterior T waves changes. An additional troponin was 0.23. Time Spent on Plan of Care: < 30 min Exam Sepsis Risk: No Definite Risk RENETTA STONE MD November 14, 2017 11:25
[2017-11-14 11:50] VITALS: BP 120/57
[2017-11-14] MEDS: cefTRIAXone 2 GM VIAL IVP SCH (12:01)
[2017-11-14] MEDS: AZITHROMYCIN(*) 500 MG 500 MG in NS(*) 0.9% 250 ML BAG 250 ML IVPB SCH (12:01)
[2017-11-14 15:08] VITALS: BP 125/54
[2017-11-14] MEDS: LEVOTHYROXINE SOD 0.125 MG TAB PO SCH (15:59)
[2017-11-14] MEDS: ALLOPURINOL 100 MG TAB PO SCH (17:42)
[2017-11-14 18:42] VITALS: BP 103/54
[2017-11-14] MEDS: MELATONIN 3 MG TAB PO SCH (20:50)
[2017-11-14] MEDS: SIMVASTATIN 20 MG TAB PO SCH (20:50)
[2017-11-14 23:00] VITALS: BP 108/51
[2017-11-15] MEDS: MORPHINE 2 MG/ML SYR IVP PRN ×2 (01:45→19:21)
[2017-11-15 02:06] VITALS: BP 137/71
[2017-11-15 05:54] LABS: PLATELET COUNT, AUTOMATED 140 K/uL (150-450)
[2017-11-15 07:36] VITALS: BP 140/71
[2017-11-15] MEDS: POLYETHYLENE GLYCOL 17 GM PKT PO SCH (09:00)
[2017-11-15] MEDS ORDERED: POTASSIUM CHL 10 MEQ TABCR PO ONE (09:30)
[2017-11-15] MEDS ORDERED: FUROSEMIDE 40 MG/4 ML VIAL IVP ONE (09:30)
[2017-11-15] MEDS: PANTOPRAZOLE SOD 40 MG TABEC PO SCH (09:51)
[2017-11-15] MEDS: predniSONE 10 MG TAB PO SCH (09:51)
[2017-11-15] MEDS: DOCUSATE SODIUM 100 MG CAP PO SCH ×2 (09:51→20:45)
[2017-11-15] MEDS: ENOXAPARIN 30 MG/0.3 ML SYR SC SCH (09:52)
--- NOTE | 2017-11-15 10:50 | Hospitalist Progress Note ---
Subjective Progress Notes Subjective He denies SOB. No concerns from staff Physical Exam Vital Signs Date Time Temp Pulse Resp B/P (MAP) Pulse Ox O2 Delivery O2 Flow Rate FiO2 11/15/17 07:47 69 11/15/17 07:36 97.6 87 20 140/71 (94) High-Flow Nasal Cannula 10.0 11/11/17 07:30 60.0 Intake and Output 11/16/17 07:00 Output Total 125 ml Balance -125 ml Output Urine Total 125 ml General Appearance: Alert, Awake, No Acute Distress Respiratory: Other (Righ basilar and mid insp crackles. Moving air well) Extremities: Edema (2+ pitting in ankles bilaterally) Result Diagram: 11/15/17 0511/15/17528 Monitor Interpretation: Normal Sinus Rhythm Assessment and Plan Problems: (1) Pneumonitis Status: Acute Assessment & Plan: He presented with a couple weeks of cough and then about a one and one half weeks of progressive weakness. His chest x-ray and CT scan have shown diffuse edema/interstitial prominence. He has had severe hypoxia. A urinary antigen for legionella was negative. He is currently on treatment with ceftriaxone, azithromycin, and IV steroids. He initially was diuresed. He is no longer requiring the Vapotherm to maintain oxygenation. Dr. Borja spoke to Pulmonology at [facility] and they agreed with the plan. Rheumatoid factor and YUMIOK are both negative as well. He is now on oral prednisone. Will gradually decrease his dose and monitor closely. Will stop ceftriaxone and azithromycin today (9 days of treatment). Repeat CXR tomorrow. Will give another dose of Lasix secondary to the LE edema. Try to wean O2 (2) Hypercalcemia Status: Acute Assessment & Plan: He was noted to have an elevated calcium level which has improved with hydration/diuresis. The etiology is unclear, but was certainly exacerbated by his hydrochlorothiazide and possible dehydration. PTH related peptide is elevated. His calcium is decreased, but still elevated when corrected for albumin. 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 He will need follow up as an outpatient. (3) Acute renal failure Status: Resolved Assessment & Plan: He did present with an increased creatinine, which has been improving. (4) Essential hypertension Status: Chronic Assessment & Plan: He has been on chronic treatment with lisinopril and hydrochlorothiazide. Both medications were held initially. His BP has increased but overall is reasonable. Continue to monitor. (5) Hypothyroidism Onset Date: 06/27/2014 Status: Chronic Assessment & Plan: He is on chronic treatment with Synthroid. A TSH mildly elevated at 5.01. He will require a repeat TSH in 4-6 weeks. 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 (7) Chest discomfort Status: Acute Assessment & Plan: Initial troponins were 0.012 and 0.020. EKG showed some anterior T waves changes. An additional troponin was 0.023. No further reported symptoms. Exam Sepsis Risk: No Definite Risk JEAN CARLOS BORJA MD November 15, 2017 10:50
[2017-11-15 12:08] VITALS: BP 118/59
[2017-11-15 15:05] VITALS: BP 128/61
[2017-11-15] MEDS: LEVOTHYROXINE SOD 0.125 MG TAB PO SCH (16:03)
[2017-11-15] MEDS: ALLOPURINOL 100 MG TAB PO SCH (17:23)
[2017-11-15 19:01] VITALS: BP 129/57
[2017-11-15] MEDS: SIMVASTATIN 20 MG TAB PO SCH (20:45)
[2017-11-15] MEDS: MELATONIN 3 MG TAB PO SCH (21:37)
[2017-11-15 22:17] VITALS: BP 136/65
[2017-11-16 02:31] VITALS: BP 149/76
[2017-11-16 05:41] LABS: PLATELET COUNT, AUTOMATED 151 K/uL (150-450)
--- NOTE | 2017-11-16 07:42 | RADIOLOGY IMAGING REPORT ---
FACILITY: [facility] PATIENT NAME: Mehul Majano : 1930 MR: [id number] V: [id number] EXAM DATE: ORDERING PHYSICIAN: JEAN CARLOS BORJA TECHNOLOGIST: Location: [facility] Patient: Mehul Majano : 1930 Visit/Account:[id number] Date of Sevice: 11/16/2017 EXAMINATION: Chest radiograph HISTORY: Hypoxia COMPARISON: November 12, 2017 FINDINGS: The cardiac silhouette is normal in size. No pneumothorax. Consolidation in the periphery of the bila teral mid to upper lungs is unchanged. Groundglass opacification in the lower lungs is unchanged. Normal osseous structures. IMPRESSION: Bilateral mid to upper lung peripheral unchanged consolidation and unchanged lower lung groundglass o pacification. The findings may represent a multifocal pneumonia. Acute interstitial pneumonitis is an alternative c onsideration. Report Dictated By: Mark Anthony Foreman MD at 11/16/2017 7:37 AM Report E-Signed By: Mark Anthony Foreman MD at 11/16/2017 7:39 AM WSN:[id number]
[2017-11-16] MEDS: POLYETHYLENE GLYCOL 17 GM PKT PO SCH (09:00)
--- NOTE | 2017-11-16 09:21 | Hospitalist Progress Note ---
Subjective Progress Notes Subjective This patient was admitted for hypoxia and suspected pneumonia. He had no acute events overnight. Patient Complains of: Cardiovascular: No: Chest Pain Respiratory: Shortness of Breath Physical Exam Vital Signs Date Time Temp Pulse Resp B/P (MAP) Pulse Ox O2 Delivery O2 Flow Rate FiO2 11/16/17 02:31 97.5 77 24 149/76 (100) 91 High-Flow Nasal Cannula 10.0 Intake and Output 11/17/17 07:00 Intake Total 640 ml Balance 640 ml Intake Oral 640 ml Neuro: No Gross deficits Eyes: PERRLA Cardiovascular: Regular Rate and Rhythm, No JVD Respiratory: Other (Fluid present in bilateral bases. ) Extremities: Edema Integumentary: No Cyanosis Result Diagram: 11/16/1752711/16/17527 Imaging Chest x-ray reviewed. Monitor Interpretation: Normal Sinus Rhythm Assessment and Plan Problems: (1) Pneumonitis Status: Acute Assessment & Plan: He presented with a couple weeks of cough and then about a one and one half weeks of progressive weakness. His chest x-ray and CT scan have shown diffuse edema/interstitial prominence. He has had severe hypoxia. A urinary antigen for legionella was negative. He was on treatment with ceftriaxone, azithromycin, and IV steroids. The antibiotics have now been discontinued and he has converted to oral prednisone. We are starting aggressive diuresis today. (2) Hypercalcemia Status: Acute Assessment & Plan: He was noted to have an elevated calcium level which has improved with hydration/diuresis. The etiology is unclear, but was certainly exacerbated by his hydrochlorothiazide and possible dehydration. PTH related peptide is elevated. His calcium is decreased, but still elevated when corrected for albumin. 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 He will need follow up as an outpatient. (3) Acute renal failure Status: Resolved Assessment & Plan: He did present with an increased creatinine, which has been improving. (4) Essential hypertension Status: Chronic Assessment & Plan: He has been on chronic treatment with lisinopril and hydrochlorothiazide. Both medications are on hold. (5) Hypothyroidism Onset Date: 06/27/2014 Status: Chronic Assessment & Plan: He is on chronic treatment with Synthroid. A TSH mildly elevated at 5.01. He will require a repeat TSH in 4-6 weeks. 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 (7) Chest discomfort Status: Acute Assessment & Plan: He did have an episode of chest pain earlier in the admission. His troponin and EKG were unremarkable. Exam Sepsis Risk: No Definite Risk NAOMY DELCID DO November 16, 2017 09:21
[2017-11-16] MEDS: ENOXAPARIN 30 MG/0.3 ML SYR SC SCH (09:40)
[2017-11-16] MEDS: DOCUSATE SODIUM 100 MG CAP PO SCH ×2 (09:41→20:52)
[2017-11-16] MEDS: PANTOPRAZOLE SOD 40 MG TABEC PO SCH (09:41)
[2017-11-16] MEDS: POTASSIUM CHL 20 MEQ TABCR PO SCH ×2 (09:41→17:47)
[2017-11-16] MEDS: FUROSEMIDE 40 MG/4 ML VIAL IVP SCH ×2 (09:41→13:35)
[2017-11-16] MEDS: predniSONE 10 MG TAB PO SCH (09:41)
[2017-11-16 09:53] VITALS: BP 154/73
[2017-11-16] MEDS: BUDESO/FORMOT 160/4.5 MCG 6 GM INH SCH ×2 (10:59→16:39)
[2017-11-16 11:07] VITALS: BP 136/68
[2017-11-16 14:41] VITALS: BP 110/60
[2017-11-16] MEDS: LEVOTHYROXINE SOD 0.125 MG TAB PO SCH (16:10)
--- NOTE | 2017-11-16 16:19 | Medical Nutrition Therapy ---
Nutrition Anthropometrics Height (Inches): 70.00 Height (Calculated Centimeters: 177.799048 Weight (Pounds): 188 Weight (Calculated Kilograms): 85.275 Hussein Nutrition Score: Adequate Hussein Nutrition Risk Score: 16 Dietary Referral Nutrition Risk Factors: Nutrition Risk Comment: Physical Findings Physical Appearance: Overweight BMI 25-29 Skin Appearance Skin Appearance: Edema Edema Location Modifier: Both Edema Location: Foot Type of Edema: Degree of Edema: 2+ Gastrointestinal Symptoms GI Symtoms: Constipation Tube Present: Bowel Sounds: Recent Bowel Pattern: Stool Characteristics: Nutritional Diagnosis Nutritional Risk Acuity 4: Good Appetite Past Medical History: Gouty arthropathy, Hypothyroidism, Benign prostatic hyperplasia (BPH), Squamous cell carcinoma of scalp, Essential hypertension Nutritional Acuity: 4-Low Nutrition Diagnosis: Decreased Nutrient Needs Nutrition Etiology: Physiological Causes Nutrition Problem/Etiology/Sym: Decreased protein, fluids needs r/t dxc ARF AEB BUN 28. Energy Requirement: 1980 ([place]- St Jeor) Protein Requirement: 66 (.8gm/kg) Fluid Requirement: 2000 (25ml/kg) Diet Type: Diet as Tolerated YURI/REG Nutrition Intervention: Cont diet as ordered, Encourage intake Food Likes: likes his banana cut in 1/2, with peel on Additional Diet Restrictions: PUT PROTEIN POWDER IN ALL APPROPRIATE FOODS Nutrition Monitoring & Eval Nutrition Goals: Eat 75-100% Meal RD Patient Assessment Time: [address] Assessment Type: RD Re-Assessment Patient Nutrition Acuity: 4-Low Follow Up Date: Nov 22, 2017 Nutritional Comment: Pt admitted with Hypercalcemia, ARF, and Pulmonary edema. ARF should resolve with hydration. Low H/H, Ca+ 11.7, Alb 3.1, BNP 198. Pt overwt with BMI of 26.7. Receiving YURI and consuming 100%. Follow intake, labs, etc. 11/07 Pt cont dx of ARF. BUN 44, creatinine 1.8 which has improved but not resolved. Pt recieved duiretic but now is stopped. Pt has non-pitting edema LE with a 5# wt gain from admission. Anticipate wt loss when edema resolved. Pt is eating 75- 100% of meals. alb low at 2.1, Na low at 134. Will cont to monitor and encourage intake. 11/10 Pt cont YURI/REG diet with 100% intake. Pt appetite has improved. Less dyspenecic. No fever. Ca has improved with IV fluids and creatininie continues to decrease. Notable labs low Na 130, slightly elevated liver enzymes, low alb 2.3, and elevated random blood glucose 170. Continue to monitor pt progress and encourage intake. MT 11/12 Pt on regular diet and eating 75- 100%. Alb cont to decline and currently 1.9. Will put protein powder in appropriate foods to increase protein intake. When Calcium corrected for low alb, calcuim cont elevated at 11.1. Dr reports ARF is resolved with creatinine 1.1. BUN cont elevated at 39. Wt is up 14# since admission. Pt has nonpitting edema LE and 1+ edema to feet. Will cont to monitor and encourage intake. BK 11/16 Pt continues on YURI/REG diet with 100% oral intake. Continue to serve protein fortified shakes. Alb continues to decrease now at 28, along with Ca+. Pt Na is slowly increasing since admission, however still lightly low 133. Pt wt continues to fluctuate, this could be related to edema. Continue to monitor pt progress and encourage intake. MT DEJA GOULD November 16, 2017 12:14
[2017-11-16] MEDS: ALLOPURINOL 100 MG TAB PO SCH (17:47)
[2017-11-16 18:41] VITALS: BP 115/60
[2017-11-16] MEDS: SIMVASTATIN 20 MG TAB PO SCH (20:52)
[2017-11-16] MEDS: MELATONIN 3 MG TAB PO SCH (20:52)
[2017-11-16 23:33] VITALS: BP 146/95
[2017-11-17] VITALS (7 sets, daily range): BP systolic 113–159; BP diastolic 62–78
[2017-11-17] MEDS ORDERED: CALCIUM CARBONATE 500 MG CHEW PO PRN (00:10)
[2017-11-17] MEDS: ACETAMINOPHEN 325 MG TAB PO PRN ×2 (01:18→21:44)
[2017-11-17] MEDS: BUDESO/FORMOT 160/4.5 MCG 6 GM INH SCH ×2 (05:44→17:20)
[2017-11-17 05:57] LABS: PLATELET COUNT, AUTOMATED 141 K/uL (150-450)
[2017-11-17] MEDS: POTASSIUM CHL 20 MEQ TABCR PO SCH ×2 (08:40→18:15)
[2017-11-17] MEDS: DOCUSATE SODIUM 100 MG CAP PO SCH ×2 (08:40→21:43)
[2017-11-17] MEDS: predniSONE 10 MG TAB PO SCH (08:40)
[2017-11-17] MEDS: PANTOPRAZOLE SOD 40 MG TABEC PO SCH (08:40)
[2017-11-17] MEDS: ENOXAPARIN 30 MG/0.3 ML SYR SC SCH (08:40)
[2017-11-17] MEDS: POLYETHYLENE GLYCOL 17 GM PKT PO SCH (08:41)
--- NOTE | 2017-11-17 09:39 | Hospitalist Progress Note ---
Subjective Progress Notes Subjective He reports some SOB today. He had good UOP with the Lasix, yesterday. Physical Exam Vital Signs Date Time Temp Pulse Resp B/P (MAP) Pulse Ox O2 Delivery O2 Flow Rate FiO2 11/17/17 08:52 98.4 87 24 159/78 (105) 90 High-Flow Nasal Cannula 10.0 Intake and Output 11/18/17 07:00 Intake Total 240 ml Output Total 350 ml Balance -110 ml Intake Oral 240 ml Output Urine Total 350 ml # Voids 2 General Appearance: Alert, Awake, No Acute Distress Respiratory: Other (Insp crackles bilaterally. Worse in upper lung khanna and right base) Extremities: Edema (1+ pitting in shins) Result Diagram: 11/17/1751111/17/17511 Monitor Interpretation: Normal Sinus Rhythm Assessment and Plan Problems: (1) Pneumonitis Status: Acute Assessment & Plan: He presented with a couple weeks of cough and then about a one and one half weeks of progressive weakness. His chest x-ray and CT scan have shown diffuse edema/interstitial prominence. He has had severe hypoxia. A urinary antigen for legionella was negative. Rheumatoid factor and YUMIKO are both negative as well. He was on treatment with ceftriaxone, azithromycin, and IV steroids. He initially was diuresed. He is no longer requiring the Vapotherm to maintain oxygenation. Dr. Borja spoke to Pulmonology at [facility] and they agreed with the plan. Ceftriaxone and azithromycin stopped on 11/15 (9 days of treatment). He is now on oral prednisone. Will gradually decrease his dose and monitor closely. Repeat CXR tomorrow. On scheduled Lasix secondary to the LE edema and pleural effusions. Try to wean O2 (2) Hypercalcemia Status: Acute Assessment & Plan: He was noted to have an elevated calcium level which has improved with hydration/diuresis. The etiology is unclear, but was certainly exacerbated by his hydrochlorothiazide and possible dehydration. PTH related peptide is elevated. His calcium is decreased, but still elevated when corrected for albumin. 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 He will need follow up as an outpatient. (3) Acute renal failure Status: Resolved Assessment & Plan: He did present with an increased creatinine, which has been improving. (4) Essential hypertension Status: Chronic Assessment & Plan: He has been on chronic treatment with lisinopril and hydrochlorothiazide. Both medications are on hold, but BP increasing. On scheduled Lasix, currently. (5) Hypothyroidism Onset Date: 06/27/2014 Status: Chronic Assessment & Plan: He is on chronic treatment with Synthroid. A TSH mildly elevated at 5.01. He will require a repeat TSH in 4-6 weeks. 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 (7) Chest discomfort Status: Acute Assessment & Plan: He did have an episode of chest pain earlier in the admission. His troponin and EKG were unremarkable. Exam Sepsis Risk: No Definite Risk JEAN CARLOS BORJA MD November 17, 2017 09:39
[2017-11-17] MEDS: FUROSEMIDE 40 MG/4 ML VIAL IVP SCH ×2 (10:00→13:51)
[2017-11-17] MEDS: LEVOTHYROXINE SOD 0.125 MG TAB PO SCH (16:08)
[2017-11-17] MEDS: ALLOPURINOL 100 MG TAB PO SCH (18:15)
[2017-11-17] MEDS: SIMVASTATIN 20 MG TAB PO SCH (21:43)
[2017-11-17] MEDS: MELATONIN 3 MG TAB PO SCH (21:43)
[2017-11-18 01:28] VITALS: BP 150/78
[2017-11-18 04:41] VITALS: BP 141/75
[2017-11-18] MEDS: BUDESO/FORMOT 160/4.5 MCG 6 GM INH SCH (06:00)
[2017-11-18 06:02] LABS: PLATELET COUNT, AUTOMATED 126 K/uL (150-450)
--- NOTE | 2017-11-18 06:43 | RADIOLOGY IMAGING REPORT ---
FACILITY: [facility] PATIENT NAME: Mehul Majano : 1930 MR: [id number] V: [id number] EXAM DATE: ORDERING PHYSICIAN: JEAN CARLOS BORJA TECHNOLOGIST: Location: [facility] Patient: Mehul Majano : 1930 Visit/Account:[id number] Date of Sevice: 11/18/2017 CHEST SINGLE AP HISTORY: Pneumonitis COMPARISON: 11/16/2017. FINDINGS: Semierect AP portable chest x-ray. Lines/tubes: None. Lungs/pleura: Peripheral consolidation in the bilateral mid lung, right greater than left. Consolida tion in the lung bases, right greater than left. Reticular opacities throughout the rest of the lungs . Possible small right pleural effusion. No definite pneumothorax. Heart: Stable heart size. Mediastinum: Stable mediastinal contours. Aortic calcifications. Bony structures/body wall: Degenerative changes in the spine. No acute osseous findings. IMPRESSION: No significant change compared with 11/16/2017. Report Dictated By: Domenico Ellison MD at 11/18/2017 6:35 AM Report E-Signed By: Domenico Ellison MD at 11/18/2017 6:38 AM WSN:[id number]
[2017-11-18] MEDS: POLYETHYLENE GLYCOL 17 GM PKT PO SCH (09:00)
[2017-11-18 09:32] VITALS: BP 149/83
[2017-11-18] MEDS: FUROSEMIDE 40 MG/4 ML VIAL IVP SCH (09:41)
[2017-11-18] MEDS: POTASSIUM CHL 20 MEQ TABCR PO SCH (09:41)
[2017-11-18] MEDS: ENOXAPARIN 30 MG/0.3 ML SYR SC SCH (09:41)
[2017-11-18] MEDS: predniSONE 10 MG TAB PO SCH (09:41)
[2017-11-18] MEDS: PANTOPRAZOLE SOD 40 MG TABEC PO SCH (09:42)
[2017-11-18] MEDS: DOCUSATE SODIUM 100 MG CAP PO SCH (09:42)
[2017-11-18] MEDS ORDERED: POLYETHYLENE GLYCOL 17 GM PKT PO PRN (10:15)
--- NOTE | 2017-11-18 12:47 | Hospitalist Depart ---
Discharge Summary Reason for Hosp/Final Diag: (1) Pneumonitis Status: Acute Hospital Course & Plan: He presented with a couple weeks of cough and then about a one and one half weeks of progressive weakness. His chest x-ray and CT scan have shown diffuse edema/interstitial prominence. He has had severe hypoxia. A urinary antigen for legionella was negative. Rheumatoid factor and YUMIKO are both negative as well. He was on treatment with ceftriaxone, azithromycin, and IV steroids. He initially was diuresed. He is no longer requiring the Vapotherm to maintain oxygenation. Dr. Hannon spoke to Pulmonology at [facility] and they agreed with the plan. Ceftriaxone and azithromycin stopped on 11/15 (9 days of treatment). He is now on oral prednisone. Will gradually decrease his dose and monitor closely. Repeat CXR tomorrow. On scheduled Lasix secondary to the LE edema and pleural effusions. Try to wean O2. He will be transferred to ECF for ongoing rehabilitation. (2) Generalized weakness Status: Acute Hospital Course & Plan: Due to above. PT and OT have been working with the patient and recommend short term subacute rehabilitation. The patient will be transferred to [facility] for ongoing rehab. (3) Hypercalcemia Status: Acute Hospital Course & Plan: He was noted to have an elevated calcium level which has improved with hydration/diuresis. The etiology is unclear, but was certainly exacerbated by his hydrochlorothiazide and possible dehydration. PTH related peptide is elevated. His calcium is decreased, but still elevated when corrected for albumin. 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 He will need follow up as an outpatient. (4) Acute renal failure Status: Resolved Hospital Course & Plan: He did present with an increased creatinine, which has been improving. (5) Essential hypertension Status: Chronic Hospital Course & Plan: He has been on chronic treatment with lisinopril and hydrochlorothiazide. Both medications are on hold, but BP increasing. On scheduled Lasix, currently. (6) Hypothyroidism Onset Date: 06/27/2014 Status: Chronic Hospital Course & Plan: He is on chronic treatment with Synthroid. A TSH mildly elevated at 5.01. He will require a repeat TSH in 4-6 weeks. (7) Gouty arthropathy Onset Date: 06/27/2014 Status: Chronic Hospital Course & Plan: He is on chronic treatment with allopurinol. (8) Chest discomfort Status: Acute Hospital Course & Plan: He did have an episode of chest pain earlier in the admission. His troponin and EKG were unremarkable. Departure Weight (Pounds): 180 Weight (Ounces): 12.0 Result Diagram: 11/18/1753011/18/17530 Condition: Improved Discharge: [facility] Time Spent: < 30 min Discharge Instructions Home Meds Active Scripts Omeprazole (OMEPRAZOLE) 20 Mg Capsule.dr, 1 CAP PO QDAY, #90 TAB 3 Refills Prov:ZHANG GORDILLO MD 10/10/17 Hydrochlorothiazide (HYDROCHLOROTHIAZIDE) 12.5 Mg Capsule, 1 TAB PO QDAY, #90 CAPSULE 3 Refills Prov:ZHANG GORDILLO MD 09/29/17 Lisinopril (LISINOPRIL) 5 Mg Tablet, 1 TAB PO QDAY, #30 TAB 1 Refill Prov:ZHANG GORDILLO MD 09/27/17 Levothyroxine Sodium (LEVOXYL) 125 Mcg Tablet, 1 TAB PO QDAY, #90 TAB 4 Refills Prov:ZHANG GORDILLO MD 09/13/16 Simvastatin (SIMVASTATIN) 20 Mg Tablet, 1 TAB PO HS, #90 TAB 4 Refills Prov:ZHANG GORDILLO MD 07/06/16 Allopurinol (ALLOPURINOL) 100 Mg Tablet, 2 TAB PO DAILY, #180 TAB 4 Refills Prov:ZHANG GORDILLO MD 07/06/16 Reported Medications Selenium (SELENIUM) 100 Mcg Tablet, 1 TAB PO QDAY 07/01/15 Magnesium Oxide (MAGNESIUM) 250 Mg Tablet, 1 TAB PO QDAY 07/01/15 Zinc Amino Acid Chelate (ZINC) 50 Mg Tablet, 1 TAB PO QDAY, CAPSULE 07/01/15 Glucosa Adler 2KCL/Chondroitin Adler (GLUCOSAMINE & CHONDROITIN CAP) 1 Each Capsule, 1 CAP PO BID, CAPSULE 07/01/15 Calcium Carbonate/Vitamin D3 (CALCIUM + VITAMIN D TABLET) 1 Each Tablet, 1 TAB PO QDAY 07/01/15 Diet: Regular Activity: As Tolerated, With Walker Special Instructions: The hospitalist service will continue to follow the patient on ECF. Copies to: ZHANG GORDILLO MD Venous Thromboembolism Antithrombotics Is Pt On Any Antithrombotics?: No RENETTA STONE MD Nov 18, 2017 12:47
[2017-11-19] MEDS ORDERED: FUROSEMIDE 40 MG/4 ML VIAL IVP SCH (09:00)
== END 2017-11-18 13:47 | DRG 194 ==
LOC: ER 14:35 → MED 18:30 → ICU 11-06 10:25 → MED 11-11 14:50
PROVIDERS: ADMIT Family Medicine; ATTEND Family Medicine
DX: J18.9 Pneumonia, unspecified organism (principal); N17.9 Acute kidney failure, unspecified; E83.52 Hypercalcemia; J43.2 Centrilobular emphysema; R09.02 Hypoxemia; R53.1 Weakness; E86.0 Dehydration; T50.2X5A Adverse effect of carbonic-anhydrase inhibitors, benzothiadiazides and other diuretics, initial encounter; I10 Essential (primary) hypertension; E03.9 Hypothyroidism, unspecified; M1A.9XX0 Chronic gout, unspecified, without tophus (tophi); R07.9 Chest pain, unspecified; I95.9 Hypotension, unspecified; N40.1 Benign prostatic hyperplasia with lower urinary tract symptoms; R39.16 Straining to void; C44.42 Squamous cell carcinoma of skin of scalp and neck; Z91.040 Latex allergy status; Z87.891 Personal history of nicotine dependence
CPT/HCPCS: 36415; 70450; 71045; 71250; 81001; 82040; 82247; 82310; 82374; 82435; 82565; 82803; 82947; 83519; 83735; 83880; 84075; 84132; 84155; 84295; 84443; 84450; 84460; 84484; 84520; 85025; 86038; 86430; 87449; 93005; 93306; 94640; 94660; 94667; 94668; 97161; 97165; 99285; A9270; C1758; J0456; J0696; J1650; J1940; J2270; J2930; J7030; J7040; J7050; J7512

== ENCOUNTER → 2017-11-05 | Outpatient (CLI) | payer MEDICARE, BC ==
[2017-11-06 11:35] VITALS: BMI 26.7
== END ==
LOC: AMB 14:03
PROVIDERS: ATTEND Nurse Practitioner
DX: I95.9 Hypotension, unspecified (principal); R09.02 Hypoxemia; R53.1 Weakness
CPT/HCPCS: A0425; A0427

== ENCOUNTER 2017-11-18 13:47 | Inpatient (IN) | payer MEDICARE, BC ==
[~2017-11-18] VITALS: Ht 172.7 cm; Wt 79.4 kg
[2017-11-18 14:00] VITALS: BP 119/61
[2017-11-18] MEDS ORDERED: BISACODYL 10 MG SUPP PR PRN (15:08)
[2017-11-18] MEDS ORDERED: POLYETHYLENE GLYCOL 17 GM PKT PO PRN (15:08)
[2017-11-18] MEDS ORDERED: MAGNESIUM HYDROXIDE* 30ML UDCP PO PRN (15:08)
[2017-11-18] MEDS ORDERED: SALINE NASAL GEL 14.1 GM TUBE PRN (15:08)
[2017-11-18] MEDS ORDERED: SALINE 0.65% NAS SPR 44 ML BTL PRN (15:08)
[2017-11-18] MEDS ORDERED: CALCIUM CARBONATE 500 MG CHEW PO PRN (15:08)
[2017-11-18] MEDS ORDERED: NITROGLYCERIN 0.4 MG SUBL SL PRN (15:08)
[2017-11-18 15:24] VITALS: Ht 172.7 cm; Wt 79.4 kg
[2017-11-18] MEDS: LEVOTHYROXINE SOD 0.125 MG TAB PO SCH (15:33)
--- NOTE | 2017-11-18 15:59 | Consultant Pharmacy Review ---
Research And Development Specialist Review Other General Cautions D Allopurinol Milk of Magnesia [OTC] (Antacids) D Allopurinol Tums [OTC] (Antacids) D Levothyroxine Milk of Magnesia [OTC] (Magnesium Salts) Depends on Route D Levothyroxine (Thyroid Products) Tums [OTC] (Calcium Salts) D Milk of Magnesia [OTC] (Antacids) PredniSONE (Corticosteroids (Oral)) D PredniSONE (Corticosteroids (Oral)) Tums [OTC] (Antacids) C Allopurinol Furosemide (Loop Diuretics) C Enoxaparin (Heparins (Low Molecular Weight)) Potassium Chloride (Potassium Salts) C Furosemide (Blood Pressure Lowering Agents) Nitrostat (Hypotension- Associated Agents) C Furosemide (Loop Diuretics) PredniSONE (Corticosteroids (Systemic)) C Furosemide (Loop Diuretics) Symbicort (Beta2-Agonists) C Furosemide (Loop Diuretics) Symbicort (Corticosteroids (Orally Inhaled)) B Furosemide Levothyroxine (Thyroid Products) Depends on Dose B Levothyroxine (Thyroid Products) Pantoprazole (Proton Pump Inhibitors) B PredniSONE (Corticosteroids) Symbicort (Beta2-Agonists) Pneumococcal Vaccine HX Pneumo Vac ([id number]): Yes (AFTER AGE 66. Had twice.) HX Pneumo Vac (Pneumovax): Yes DAVIS HART Nov 18, 2017 15:59
[2017-11-18] MEDS: POTASSIUM CHL 20 MEQ TABCR PO SCH (17:02)
[2017-11-18] MEDS: BUDESO/FORMOT 160/4.5 MCG 6 GM INH SCH (17:03)
[2017-11-18] MEDS: ALLOPURINOL 100 MG TAB PO SCH (17:03)
--- NOTE | 2017-11-18 20:01 | Medical Nutrition Therapy ---
Nutrition Anthropometrics Height (Inches): 68.00 Height (Calculated Centimeters: 172.725264 Weight (Pounds): 180 Weight (Calculated Kilograms): 81.987 Hussein Nutrition Score: Adequate Hussein Nutrition Risk Score: 17 Dietary Referral Nutrition Risk Factors: Nutrition Risk Comment: Physical Findings Physical Appearance: Overweight BMI 25-29 Skin Appearance Skin Appearance: Edema Edema Location Modifier: Both Edema Location: Foot Type of Edema: Degree of Edema: 2+ Gastrointestinal Symptoms GI Symtoms: Tube Present: Bowel Sounds: Recent Bowel Pattern: Stool Characteristics: Nutrition/Food History No Significant Nutr. HX Good Nutritional Diagnosis Nutritional Risk Acuity 4: Good Appetite Past Medical History: Gouty arthropathy, Hypothyroidism, Benign prostatic hyperplasia (BPH), Squamous cell carcinoma of scalp, Essential hypertension, generalized weakness, HTN, acute renal failure, pneumonitis Nutritional Acuity: 3-Mild Nutrition Diagnosis: Over-weight/Obesity Nutrition Etiology: Excesssive Nutr. Intake Nutrition Problem/Etiology/Sym: Overweight/Obesity as related to excessive energy intake AEB BMI of 27.5. Energy Requirement: 1925 ([place]-St Jeor: Actual BW X 1.3) Protein Requirement: 82 (Actual BW Kg X .8) Fluid Requirement: 1925 Diet Type: Diet as Tolerated YURI/REG Nutrition Intervention: Cont diet as ordered Drug: Diuretics Nutrition Monitoring & Eval Nutrition Goals: Eat 50-100% Meal RD Patient Assessment Time: [address] Assessment Type: RD Assessment Patient Nutrition Acuity: 3-Mild Follow Up Date: Nov 22, 2017 Nutritional Comment: 11/18 Pt admitted for pneumonitis and generalized weakness and transferred to ECF for continued rehab. Pt is overwt with BMI of 27.5. Low H/H, Alb 2.2, BNP 176, High Ca+. Receiving YURI and consumed 95% of first meal in ECF. Monitor progress, follow labs, intake, etc. -LARRY GONZALES Nov 18, 2017 20:01
--- NOTE | 2017-11-18 20:20 | PT ECF NOTE ---
Type of Note: Initial Note Primary Medical Diagnosis: Hypercalcemia; dehydration Physical Therapy Evaluation Date: 11/18/17 SUBJECTIVE: Prior Hospitalization: Med/Surg at [facility] from 11/05/17-11/18/17 for hypercalcemia, dehydration and generalized weakness. Prior Level of Function: Pt notes that he was indep with ADL's and 's assist with some IADL's. Prior Living Status: Multilevel house; Spouse Community Services: No known needs Home Accessibility: Stairs with rails Equipment Owned: [employer] Medical Complications/Past Medical History: See EMR Psychosocial Support: Pt notes good support from spouse Pain Scale (0-10): None reported at time of eval OBJECTIVE: Strength: B) LE's 4-/5 overall with generalized weakness ROM: (please note any abnormalities) No limitations noted Sensation: (please note any abnormalities) No paresthesias reported Other Neuro findings: n/a Bed Mobility: SBA with bed rail Assistive device: Transfers: CGA Assistive Device: Front wheeled walker Gait: Minimum assistance to manage O2 tubing; CGA Assistive device: Front wheeled walker Stairs: Not yet addressed Assistive device: Timed Up and Go (>12 seconds indicated increased risk for falls): 24 seconds to complete with FWW and assist to manage O2 at 12 L/min. 10 meter walk test (0.6m/second cannot function independently): n/a Other Objective Measures: n/a ASSESSMENT: Pt noted to require 8 L/min of supplemental O2 while at rest and required increase to 12 L/min during increased exertion of PT/OT eval and TUG test. Pt desats to 81% even on 12 L/min and required verbal cues to minimize talking and focus on pursed-lip breathing, in order to recover after mobility. Pt would benefit from further therapy to addressed increased tolerance to functional mobility as well as strengthening, while weaning off O2 as able. Problem List/Current Limitations: Decreased activity soledad; Decreased balance ; Generalized weakness; Decreased problem solving Shortness of breath Short Term Goals: 1. Pt to be modified indep with bed mobility and supine to/from sit transfers 2. Pt to be modified indep with sit to/from stand transfers from a variety of surfaces. 3. Pt to maintain O2 sats in safe range with decreased O2 demand during ADL's and increased ambulation, with proper safety awareness for O2 tubing management. 4. Pt to soledad ambulation x 300' with least restrictive device, modified indep and TUG test improved by 5 seconds. 5. Pt to soledad up/down 12 steps with rail and proper O2 management with energy conservation techniques as needed, with modified indep. Field Account Director Goals: Pt to return home with decreased O2 demand and appropriate safety awareness to manage O2 tubing effectively. Patient Goals: Return home without need for supplemental O2. Rehabilitation Prognosis: Good Barriers for Discharge: Pt is limited in ability to progress therapy aggressively, due to O2 demand and difficulty maintaining O2 sats even on 12 L/ min at time of eval. PLAN: The patient will benefit from skilled physical therapy services 5 times per week for 2 weeks including: Therapeutic Exercise Therapeutic Activities, Transfer Training, Gait Training, Stair Training, ADL's , Safety Training, Pt/Caregiver Training, Bed Mobility Thank you for this referral. If you have any questions, concerns, or comments about this report or plan, please contact me at . H. Pam Soni, PT, MPT MTDD
[2017-11-18] MEDS: DOCUSATE SODIUM 100 MG CAP PO SCH (21:00)
[2017-11-18] MEDS: MELATONIN 3 MG TAB PO SCH (21:00)
[2017-11-18] MEDS: SIMVASTATIN 20 MG TAB PO SCH (21:02)
[2017-11-19] MEDS: BUDESO/FORMOT 160/4.5 MCG 6 GM INH SCH ×2 (06:04→16:58)
[2017-11-19 06:19] LABS: PLATELET COUNT, AUTOMATED 121 K/uL (150-450)
[2017-11-19] MEDS: PANTOPRAZOLE SOD 40 MG TABEC PO SCH (08:43)
[2017-11-19] MEDS: DOCUSATE SODIUM 100 MG CAP PO SCH ×2 (08:43→21:42)
[2017-11-19] MEDS: predniSONE 10 MG TAB PO SCH (08:43)
[2017-11-19] MEDS: FUROSEMIDE 40 MG TAB PO SCH (08:43)
[2017-11-19] MEDS: POTASSIUM CHL 20 MEQ TABCR PO SCH ×2 (08:43→17:31)
[2017-11-19] MEDS: ENOXAPARIN 30 MG/0.3 ML SYR SC SCH (08:44)
[2017-11-19 08:53] VITALS: BP 124/70
--- NOTE | 2017-11-19 15:16 | OT ECF NOTE ---
Type of Note: Initial Note Primary Medical Diagnosis: Generalized weakness s/p pneumonitis, hypercalcemia, and acute renal failure Occupational Therapy Evaluation Date: 11/18/17 SUBJECTIVE: Prior Hospitalization: H 11/05/17 thru 11/18/17 Prior Level of Function: Pt reports (I) with ADLs and occasional assist from spouse for IADLs Prior Living Status: Multilevel house, Spouse Community Services: No known needs Home Accessibility: Stairs with rails (2-3 stairs to enter home, 4 levels within home) Walk-in shower Tub/shower combination Equipment Owned: Cane Tub/shower chair Medical Complications/Past Medical History: Gout, ess. HTN, see EMR for further information Psychosocial Support: Supportive spouse Pain Scale (0-10): None reported at time of evaluation Hand Dominance: Right-Pt reports concerns with decreased bilateral hand strength and essential tremor. Will benefit from addressing further with skilled assessment and intervention. OBJECTIVE: Strength: MMT: Right Left Shoulder Flexion WFL WFL Elbow Flexion WFL WFL Wrist Extension WFL WFL [employer] WFL WFL (5= normal, 4= good, 3= fair, 2= poor, 1= trace) ROM: Both upper extremities, WFL Sensation: Neuropathy in bilateral feet Functional Transfer: Assistive Device: Front wheeled walker, Gait belt Transfer Ability: CGA/SBA for transfers and mobility. Min A for O2 tubing management as pt did not wear O2 prior to admission. SpO2 WNL on 8L at rest. With mobility in the room, pt requiring 12L to maintain SpO2 >88%. Frequent v/c' s for pursed lip breathing and energy conservation strategies. ADL: Upper body dressing: Assistive device: None Upper body dressing ability: Minimum assistance Lower body dressing: Assistive device: Pt may benefit from LB AE education Lower body dressing ability: Moderate assistance Toileting: Assistive device: Toileting ability: N/T Grooming/hygiene: Assistive device: Grooming ability: N/T Bathing: Assistive device: Bathing ability: N/T Standardized Assessment: Kayli Index of Activities of Daily Livin/20 upon initial evaluation (). ASSESSMENT: Mehul presents to [facility] with decreased activity tolerance impacting safe engagement in ADLs/IADLs. At [facility], pt was (I) with ADLs/IADLs and required no supplemental O2. Pt currently requires 12L of O2 with activity in his room and assist for ADLs, safety with O2 tubing and walker negotiation. Mehul will benefit from skilled OT services to improve activity tolerance and safety with ADLs/IADLs prior to discharge home. Problem List/Current Limitations: Decreased activity tolerance Poor safety awareness Shortness of breath Short Term Goals: 1) Pt will be Mod (I) UB/LB dressing. 2) Pt will be Mod (I) grooming/hygiene seated. 3) Pt will be Mod (I) toileting. 4) Pt will be Mod (I) shower task. 5) Pt Kayli Index of ADLs score will improve by 2 points. 6) Pt will be educated on energy conservation techniques. Longterm Goals: Return home with spouse Patient Goals: Return to PLOF, improve tolerance for activities, and improve hand strength Rehabilitation Prognosis: Good Barriers to Discharge: Oxygen demands, medical history PLAN: The patient will benefit from skilled occupational therapy services 5 times per week for 2 weeks including: Ther ex ADL training Safety training Ther act IADL training Transfer training Adaptive equip training Bed mobility Energy conservation Thank you for this referral. If you have any questions, concerns, or comments about this report or plan, please contact me at . Tressa Ayers MS, OTR/L Occupational Therapist [facility]
[2017-11-19] MEDS: LEVOTHYROXINE SOD 0.125 MG TAB PO SCH (16:27)
[2017-11-19 17:10] VITALS: BP 134/73
[2017-11-19] MEDS: ALLOPURINOL 100 MG TAB PO SCH (17:33)
[2017-11-19] MEDS: MELATONIN 3 MG TAB PO SCH (21:42)
[2017-11-19] MEDS: ACETAMINOPHEN 325 MG TAB PO PRN (21:42)
[2017-11-19] MEDS: SIMVASTATIN 20 MG TAB PO SCH (21:42)
[2017-11-20] MEDS: BUDESO/FORMOT 160/4.5 MCG 6 GM INH SCH ×2 (06:10→17:00)
[2017-11-20 07:20] VITALS: BP 133/73
[2017-11-20] MEDS: DOCUSATE SODIUM 100 MG CAP PO SCH ×2 (09:40→21:02)
[2017-11-20] MEDS: predniSONE 10 MG TAB PO SCH (09:40)
[2017-11-20] MEDS: PANTOPRAZOLE SOD 40 MG TABEC PO SCH (09:40)
[2017-11-20] MEDS: POTASSIUM CHL 20 MEQ TABCR PO SCH ×2 (09:40→17:52)
[2017-11-20] MEDS: ENOXAPARIN 30 MG/0.3 ML SYR SC SCH (11:08)
[2017-11-20] MEDS: FUROSEMIDE 40 MG TAB PO SCH (11:08)
[2017-11-20 16:00] VITALS: BP 115/70
[2017-11-20] MEDS: LEVOTHYROXINE SOD 0.125 MG TAB PO SCH (16:19)
[2017-11-20] MEDS: ALLOPURINOL 100 MG TAB PO SCH (17:52)
[2017-11-20] MEDS: ACETAMINOPHEN 325 MG TAB PO PRN (19:20)
[2017-11-20] MEDS: MELATONIN 3 MG TAB PO SCH (21:01)
[2017-11-20] MEDS: SIMVASTATIN 20 MG TAB PO SCH (21:02)
[2017-11-21] MEDS: ACETAMINOPHEN 325 MG TAB PO PRN (03:03)
[2017-11-21] MEDS: BUDESO/FORMOT 160/4.5 MCG 6 GM INH SCH ×2 (06:18→16:55)
[2017-11-21 07:25] VITALS: BP 143/70
[2017-11-21] MEDS: DOCUSATE SODIUM 100 MG CAP PO SCH ×2 (09:16→21:10)
[2017-11-21] MEDS: FUROSEMIDE 40 MG TAB PO SCH (09:16)
[2017-11-21] MEDS: POTASSIUM CHL 20 MEQ TABCR PO SCH ×2 (09:16→18:28)
[2017-11-21] MEDS: ENOXAPARIN 30 MG/0.3 ML SYR SC SCH (09:16)
[2017-11-21] MEDS: predniSONE 10 MG TAB PO SCH (09:16)
[2017-11-21] MEDS: PANTOPRAZOLE SOD 40 MG TABEC PO SCH (09:16)
--- NOTE | 2017-11-21 12:50 | Miscellaneous Provider Note ---
Miscellaneous Provider Note Note Talked with immigration consultant regarding Mr. Majano. He reviewed CT and felt the patient likely did not have IPF based on CT. He felt multiple etiologies could explain his picture including eosinophilic pneumonitis, bacterial or viral pneumonia, and others. Pulmonary recommended weaning the prednisone over 10-14 days and scheduling the patient to see them as an outpatient. Taper orders written. Will have ECF staff schedule an outpatient appt. with pulmonary. RENETTA STONE MD Nov 21, 2017 12:50
--- NOTE | 2017-11-21 14:57 | Medical Nutrition Therapy ---
Nutrition Anthropometrics Height (Inches): 68.00 Height (Calculated Centimeters: [phone] Weight (Pounds): 175 Weight (Calculated Kilograms): 79.492 Hussein Nutrition Score: Adequate Hussein Nutrition Risk Score: 17 Dietary Referral Nutrition Risk Factors: Nutrition Risk Comment: Physical Findings Physical Appearance: Overweight BMI 25-29 Skin Appearance Skin Appearance: Edema Edema Location Modifier: Right Edema Location: Lower Extremity/Foot Type of Edema: Degree of Edema: 3+ Gastrointestinal Symptoms GI Symtoms: Tube Present: Bowel Sounds: Recent Bowel Pattern: Stool Characteristics: Nutritional Diagnosis Nutritional Risk Acuity 4: Good Appetite Past Medical History: Gouty arthropathy, Hypothyroidism, Benign prostatic hyperplasia (BPH), Squamous cell carcinoma of scalp, Essential hypertension, generalized weakness, HTN, acute renal failure, pneumonitis Nutritional Acuity: 3-Mild Nutrition Diagnosis: Over-weight/Obesity Nutrition Etiology: Excesssive Nutr. Intake Nutrition Problem/Etiology/Sym: Overweight/Obesity as related to excessive energy intake AEB BMI of 27.5. Energy Requirement: 1925 (Garfield-St Jeor: Actual BW X 1.3) Protein Requirement: 82 (Actual BW Kg X .8) Fluid Requirement: 1925 Diet Type: Diet as Tolerated YURI/REG Nutrition Intervention: Cont diet as ordered Drug: Diuretics Nutrition Monitoring & Eval Nutrition Goals: Eat 75-100% Meal RD Patient Assessment Time: [address] Assessment Type: RD Re-Assessment Patient Nutrition Acuity: 3-Mild Follow Up Date: Nov 29, 2017 Nutritional Comment: 11/18 Pt admitted for pneumonitis and generalized weakness and transferred to ECF for continued rehab. Pt is overwt with BMI of 27.5. Low H/H, Alb 2.2, BNP 176, High Ca+. Receiving YURI and consumed 95% of first meal in ECF. Monitor progress, follow labs, intake, etc. -DRT 11/21 Pt continues on YURI/REG diet with 100% oral intake. Pt has been refusing snacks throughout the day. Notable labs BUN (24) and slightly low Na (134). Pt has insignificant wt loss 4.5# may be related to fluid fluctuation. Pt does have +2 and +3 pitting in LE. Will continue to monitor pt progress and encourage intake. DEJA GOULD Nov 21, 2017 09:08
[2017-11-21 15:45] VITALS: BP 111/65
[2017-11-21] MEDS: LEVOTHYROXINE SOD 0.125 MG TAB PO SCH (16:36)
[2017-11-21] MEDS: ALLOPURINOL 100 MG TAB PO SCH (18:28)
[2017-11-21] MEDS: MELATONIN 3 MG TAB PO SCH (21:09)
[2017-11-21] MEDS: SIMVASTATIN 20 MG TAB PO SCH (21:09)
[2017-11-22] MEDS: BUDESO/FORMOT 160/4.5 MCG 6 GM INH SCH ×2 (05:35→17:09)
[2017-11-22 07:40] VITALS: BP 128/70
[2017-11-22] MEDS: PANTOPRAZOLE SOD 40 MG TABEC PO SCH (08:40)
[2017-11-22] MEDS: DOCUSATE SODIUM 100 MG CAP PO SCH ×2 (08:40→20:36)
[2017-11-22] MEDS: POTASSIUM CHL 20 MEQ TABCR PO SCH ×2 (08:40→17:23)
[2017-11-22] MEDS: ENOXAPARIN 30 MG/0.3 ML SYR SC SCH (08:41)
[2017-11-22] MEDS: predniSONE 10 MG TAB PO SCH (08:41)
[2017-11-22] MEDS: FUROSEMIDE 40 MG TAB PO SCH (09:39)
[2017-11-22] MEDS: LEVOTHYROXINE SOD 0.125 MG TAB PO SCH (15:58)
[2017-11-22 16:45] VITALS: BP 121/74
[2017-11-22] MEDS: ALLOPURINOL 100 MG TAB PO SCH (17:23)
[2017-11-22] MEDS: MELATONIN 3 MG TAB PO SCH (20:36)
[2017-11-22] MEDS: SIMVASTATIN 20 MG TAB PO SCH (20:36)
[2017-11-23] MEDS: BUDESO/FORMOT 160/4.5 MCG 6 GM INH SCH ×2 (05:58→17:09)
[2017-11-23] MEDS: ENOXAPARIN 30 MG/0.3 ML SYR SC SCH (08:45)
[2017-11-23] MEDS: DOCUSATE SODIUM 100 MG CAP PO SCH ×2 (08:45→20:47)
[2017-11-23] MEDS: predniSONE 10 MG TAB PO SCH (08:45)
[2017-11-23] MEDS: POTASSIUM CHL 20 MEQ TABCR PO SCH ×2 (08:46→17:12)
[2017-11-23] MEDS: PANTOPRAZOLE SOD 40 MG TABEC PO SCH (08:46)
[2017-11-23 09:00] VITALS: BP 125/74
[2017-11-23] MEDS: FUROSEMIDE 40 MG TAB PO SCH (09:43)
--- NOTE | 2017-11-23 12:33 | HISTORY AND PHYSICAL ---
DATE OF ADMISSION: 11/18/17 Reason for Hosp/Final Diag: (1) Pneumonitis Status: Acute Hospital Course & Plan: He presented with a couple weeks of cough and then about a one and one half weeks of progressive weakness. His chest x-ray and CT scan have shown diffuse edema/interstitial prominence. He has had severe hypoxia. A urinary antigen for legionella was negative. Rheumatoid factor and YUMIKO are both negative as well. He was on treatment with ceftriaxone, azithromycin, and IV steroids. He initially was diuresed. He is no longer requiring the Vapotherm to maintain oxygenation. Dr. Hannon spoke to Pulmonology at [facility] and they agreed with the plan. Ceftriaxone and azithromycin stopped on 11/15 (9 days of treatment). He is now on oral prednisone. Will gradually decrease his dose and monitor closely. Repeat CXR tomorrow. On scheduled Lasix secondary to the LE edema and pleural effusions. Try to wean O2. He will be transferred to ECF for ongoing rehabilitation. (2) Generalized weakness Status: Acute Hospital Course & Plan: Due to above. PT and OT have been working with the patient and recommend short term subacute rehabilitation. The patient will be transferred to ECF for ongoing rehab. (3) Hypercalcemia Status: Acute Hospital Course & Plan: He was noted to have an elevated calcium level which has improved with hydration/diuresis. The etiology is unclear, but was certainly exacerbated by his hydrochlorothiazide and possible dehydration. PTH related peptide is elevated. His calcium is decreased, but still elevated when corrected for albumin. 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 He will need follow up as an outpatient. (4) Acute renal failure Status: Resolved Hospital Course & Plan: He did present with an increased creatinine, which has been improving. (5) Essential hypertension Status: Chronic Hospital Course & Plan: He has been on chronic treatment with lisinopril and hydrochlorothiazide. Both medications are on hold, but BP increasing. On scheduled Lasix, currently. (6) Hypothyroidism Onset Date: 06/27/2014 Status: Chronic Hospital Course & Plan: He is on chronic treatment with Synthroid. A TSH mildly elevated at 5.01. He will require a repeat TSH in 4-6 weeks. (7) Gouty arthropathy Onset Date: 06/27/2014 Status: Chronic Hospital Course & Plan: He is on chronic treatment with allopurinol. (8) Chest discomfort Status: Acute Hospital Course & Plan: He did have an episode of chest pain earlier in the admission. His troponin and EKG were unremarkable. Departure Weight (Pounds): 180 Weight (Ounces): 12.0 Result Diagram: 11/18/1753011/18/17530 Condition: Improved Discharge: [facility] ECF Time Spent: < 30 min Discharge Instructions Home Meds Active Scripts Omeprazole (OMEPRAZOLE) 20 Mg Capsule.dr, 1 CAP PO QDAY, #90 TAB 3 Refills Prov:ZHANG GORDILLO MD 10/10/17 Hydrochlorothiazide (HYDROCHLOROTHIAZIDE) 12.5 Mg Capsule, 1 TAB PO QDAY, #90 CAPSULE 3 Refills Prov:ZHANG GORDILLO MD 09/29/17 Lisinopril (LISINOPRIL) 5 Mg Tablet, 1 TAB PO QDAY, #30 TAB 1 Refill Prov:ZHANG GORDILLO MD 09/27/17 Levothyroxine Sodium (LEVOXYL) 125 Mcg Tablet, 1 TAB PO QDAY, #90 TAB 4 Refills Prov:ZHANG GORDILLO MD 09/13/16 Simvastatin (SIMVASTATIN) 20 Mg Tablet, 1 TAB PO HS, #90 TAB 4 Refills Prov:ZHANG GORDILLO MD 07/06/16 Allopurinol (ALLOPURINOL) 100 Mg Tablet, 2 TAB PO DAILY, #180 TAB 4 Refills Prov:ZHANG GORDILLO MD 07/06/16 Reported Medications Selenium (SELENIUM) 100 Mcg Tablet, 1 TAB PO QDAY 07/01/15 Magnesium Oxide (MAGNESIUM) 250 Mg Tablet, 1 TAB PO QDAY 07/01/15 Zinc Amino Acid Chelate (ZINC) 50 Mg Tablet, 1 TAB PO QDAY, CAPSULE 07/01/15 Glucosa Adler 2KCL/Chondroitin Adler (GLUCOSAMINE & CHONDROITIN CAP) 1 Each Capsule, 1 CAP PO BID, CAPSULE 07/01/15 Calcium Carbonate/Vitamin D3 (CALCIUM + VITAMIN D TABLET) 1 Each Tablet, 1 TAB PO QDAY 07/01/15 Diet: Regular Activity: As Tolerated, With Walker Special Instructions: The hospitalist service will continue to follow the patient on ECF. Copies to: ZHANG GORDILLO MD Venous Thromboembolism Antithrombotics Is Pt On Any Antithrombotics?: No RENETTA STONE MD Nov 18, 2017 12:47 <Electronically signed by RENETTA STONE MD> D/ [id number] AURELIANO/LUPILLO CC: ZHANG GORDILLO MD H&P ADDENDUM The above issues are resolving. Patient requires intermediate care and/or skilled rehabilitation. Patient is ready for transfer to Extended Care. Any change in condition is described below. MTDD
--- NOTE | 2017-11-23 15:40 | Hospitalist Progress Note ---
Subjective Progress Notes Subjective The patient is getting anxious to go home. He has lots of things he needs to do. Physical Exam Vital Signs Date Time Temp Pulse Resp B/P (MAP) Pulse Ox O2 Delivery O2 Flow Rate FiO2 11/23/17 13:25 92 High-Flow Nasal Cannula 7.0 11/23/17 09:00 97.0 83 17 125/74 (91) Intake and Output 11/24/17 06:59 Intake Total 1080 ml Output Total 1225 ml Balance -145 ml Intake Oral 1080 ml Output Urine Total 1225 ml # Voids 4 General Appearance: Alert, Awake, No Acute Distress Neuro: No Gross deficits Eyes: PERRLA Cardiovascular: Regular Rate and Rhythm Respiratory: Other (Scattered crackles) GI: Soft and Non-Tender Extremities: Warm, Perfused Psych: Appropriate Mood & Affect Result Diagram: 11/19/1753911/19/17539 Assessment and Plan Problems: (1) Pneumonitis Status: Acute Assessment & Plan: He presented with a couple weeks of cough and then about a one and one half weeks of progressive weakness. His chest x-ray and CT scan have shown diffuse edema/interstitial prominence. He has had severe hypoxia. A urinary antigen for legionella was negative. Rheumatoid factor and YUMIKO are both negative as well. He was on treatment with ceftriaxone, azithromycin, and IV steroids. He initially was diuresed. He is no longer requiring the Vapotherm to maintain oxygenation. Dr. Hannon spoke to Pulmonology at [facility] and they agreed with the plan. Ceftriaxone and azithromycin stopped on 11/15 (9 days of treatment). He is now on oral prednisone. Will gradually decrease his dose and monitor closely. Repeat CXR tomorrow. On scheduled Lasix secondary to the LE edema and pleural effusions. Trying to wean O2. He was transferred to [facility] for ongoing rehabilitation. See misc. note. Spoke with pulmonary and the patient will need outpatient work up when he can be discharged. The patient continues to have highO2 requirements , especially with exertion. Today in PT, the patient required 12L of oxygen when going up 4 flights of stairs and still dropped his saturation to 83%. (2) Generalized weakness Status: Acute Assessment & Plan: Due to above. PT and OT worked with the patient and recommended short term subacute rehabilitation. [facility]. (3) Hypercalcemia Status: Acute Assessment & Plan: He was noted to have an elevated calcium level which has improved with hydration/diuresis. The etiology is unclear, but was certainly exacerbated by his hydrochlorothiazide and possible dehydration. PTH related peptide is elevated. His calcium is decreased, but still elevated when corrected for albumin. 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 He will need follow up as an outpatient. (4) Acute renal failure Status: Resolved Assessment & Plan: He did present with an increased creatinine, which has improved. (5) Essential hypertension Status: Chronic Assessment & Plan: He has been on chronic treatment with lisinopril and hydrochlorothiazide. Both medications are on hold, but BP increasing. On scheduled Lasix, currently. (6) Hypothyroidism Onset Date: 06/27/2014 Status: Chronic Assessment & Plan: He is on chronic treatment with Synthroid. A TSH mildly elevated at 5.01. He will require a repeat TSH in 4-6 weeks. (7) Gouty arthropathy Onset Date: 06/27/2014 Status: Chronic Assessment & Plan: He is on chronic treatment with allopurinol. (8) Chest discomfort Status: Acute Assessment & Plan: He did have an episode of chest pain earlier in the admission. His troponin and EKG were unremarkable. Time Spent on Plan of Care: < 30 min RENETTA STONE MD Nov 23, 2017 15:40
[2017-11-23] MEDS: LEVOTHYROXINE SOD 0.125 MG TAB PO SCH (16:23)
[2017-11-23 17:00] VITALS: BP 120/66
[2017-11-23] MEDS: ALLOPURINOL 100 MG TAB PO SCH (17:12)
[2017-11-23] MEDS: ACETAMINOPHEN 325 MG TAB PO PRN (19:41)
[2017-11-23] MEDS: MELATONIN 3 MG TAB PO SCH (20:47)
[2017-11-23] MEDS: SIMVASTATIN 20 MG TAB PO SCH (20:47)
[2017-11-24] MEDS: BUDESO/FORMOT 160/4.5 MCG 6 GM INH SCH (05:25)
[2017-11-24] MEDS: PANTOPRAZOLE SOD 40 MG TABEC PO SCH (09:03)
[2017-11-24] MEDS: DOCUSATE SODIUM 100 MG CAP PO SCH (09:03)
[2017-11-24] MEDS: FUROSEMIDE 40 MG TAB PO SCH (09:03)
[2017-11-24] MEDS: POTASSIUM CHL 20 MEQ TABCR PO SCH (09:03)
[2017-11-24] MEDS: ENOXAPARIN 30 MG/0.3 ML SYR SC SCH (09:03)
[2017-11-24] MEDS: predniSONE 10 MG TAB PO SCH (09:04)
[2017-11-24 09:48] VITALS: BP 139/71
--- NOTE | 2017-11-24 13:15 | Hospitalist Depart ---
Discharge Summary Reason for Hosp/Final Diag: (1) Pneumonitis Status: Acute Hospital Course & Plan: He presented November 05 with a couple weeks of cough and about a one and one half weeks of progressive weakness. His chest x-ray and CT scan have shown diffuse edema/interstitial prominence. He has had severe hypoxia. He was not on oxygen prior to admission. A urinary antigen for legionella was negative. Rheumatoid factor and YUMIKO were both negative as well. He was on treatment with ceftriaxone, azithromycin, and IV steroids. He was diuresed. He is no longer requiring the Vapotherm to maintain oxygenation. Ceftriaxone and azithromycin stopped on 11/15. He is now on oral prednisone. Will gradually decrease his dose and monitor closely. On scheduled Lasix secondary to the LE edema and pleural effusions. Trying to wean O2 but the patient has plateaued. See [facility] note. Spoke with outpatient television writer and the patient will need outpatient work up when he can be discharged. The patient continues to have highO2 requirements, especially with exertion. With PT, the patient has required 12L of oxygen when going up 4 stairs (he has 10 stairs at home) and still dropped his saturation to 83%. Will try to facilitate transfer for pulmonary evaluation. Unfortunately, only outpatient pulmonary available at [facility]. (2) Generalized weakness Status: Acute Hospital Course & Plan: Due to above. PT and OT worked with the patient and recommended short term subacute rehabilitation. The patient was transferred to [facility] for ongoing rehab. (3) Hypercalcemia Status: Acute Hospital Course & Plan: He was noted to have an elevated calcium level which improved with hydration/diuresis. The etiology was unclear, but was certainly exacerbated by his hydrochlorothiazide and possible dehydration. PTH related peptide was elevated. His calcium decreased, but was still elevated when corrected for albumin. He appeared to have primary hyperparathyroidism. He will need follow up as an outpatient. (4) Acute renal failure Status: Resolved Hospital Course & Plan: He did present with an increased creatinine, which improved with hydration. (5) Essential hypertension Status: Chronic Hospital Course & Plan: He had been on chronic treatment with lisinopril and hydrochlorothiazide. Both medications were held and BP remained relatively stable. (6) Hypothyroidism Onset Date: 06/27/2014 Status: Chronic Hospital Course & Plan: He remained on chronic treatment with Synthroid. A TSH was mildly elevated at 5.01. He will require a repeat TSH in 4-6 weeks. (7) Gouty arthropathy Onset Date: 06/27/2014 Status: Chronic Hospital Course & Plan: He was continued on chronic treatment with allopurinol. (8) Chest discomfort Status: Acute Hospital Course & Plan: He did have an episode of chest pain earlier in the admission. His troponin and EKG were unremarkable. Departure Weight (Pounds): 175 Weight (Ounces): 4.0 Result Diagram: 11/19/1753911/19/17539 Item Value Date Time Rheumatoid Factor <10 IU/mL 11/11/17 0510 Anti-Nuclear Antibody Ref Lab None detected 11/11/17 0510 Thyroid Stimulating Hormone (TSH) 5.01 uIU/ml H 11/05/17 1418 Parathyroid Hormone Related Peptide 4.3 pmol/L H 11/06/17 0853 Blood Gas Patient Temperature 97.6 DEGREES 11/05/17 1538 Venous Blood pH 7.49 H 11/05/17 1538 Venous Blood Partial Pressure CO2 34 mmHg 11/05/17 1538 Venous Blood Partial Pressure O2 < 35 mmHg 11/05/17 1538 Venous Blood HCO3 27 mmol/L 11/05/17 1538 Venous Blood Oxygen Saturation 72 % 11/05/17 1538 Venous Blood Base Excess 3 mmol/L 11/05/17 1538 Oxygen Liters/Minute 4.5l 11/05/17 1538 Imaging FACILITY: [facility] [place] PATIENT NAME: MEHUL MAJANO : [id number] MR: [id number] V: [id number] EXAM DATE: ORDERING PHYSICIAN: NAOMY DELCID TECHNOLOGIST: Soledad Gipson EXAMINATION: T WO-DIMENSIONAL ECHOCARDIOGRAPH REASON: CHF 2D Measurements (normal values in centimeters) LV end LV end RV end Vent. LV Post Aortic Left Percent Diastolic Systolic Diastolic Septum Wall Root Atrium Shortening (3.5-5.7) (0.9-2.6) (0.6-1.1) (0.6-1.1) (2.0-3.7) (1.9-4.0) (25-35%) 3.9 2.9 3.3 1.0 1.0 3.3 3.3 25% STROKE VOLUME: 33ml ESTIMATED EJECTION FRACTION: 50-55% LEFT VENTRICLE: Ejection fraction: 55-60%, normal wall motion, normal size & LV wall thickness. Normal diastolic function. RIGHT VENTRICLE: Mildly dilated with preserved function. RIGHT ATRIUM: Normal size without masses. LEFT ATRIUM: Normal size without masses. AORTIC VALVE: Trileaflet valve with no stenosis or regurgitation. PULMONIC VALVE: Poorly visualized but no significant regurgitation or stenosis noted. MITRAL VALVE: Normal structure & function with no significant stenosis or regurgitation. TRICUSPID VALVE: Mild tricuspid regurgitation, RVSP estimated at 40-45mm Hg. IVC is normal size & collapses well with an estimated right atrial pressure of 5mm Hg. AORTIC VALVE: Normal size without aneurysm. PERICARDIUM: No pericardial effusion noted. OVERALL IMPRESSION: 1. Ejection fraction 50-55%, mild right ventricular dilation with preserved function. Mild pulmonary hypertension with an RVSP of 41mm Hg along with mild to moderate tricuspid regurgitation. FACILITY: [facility] [place] PATIENT NAME: Mehul Majano : 1930 MR: [id number] V: [id number] EXAM DATE: ORDERING PHYSICIAN: JEAN CARLOS BORJA TECHNOLOGIST: [place] [facility] [place]: Mehul Majano : 1930 Visit/Account:[id number] Date of Sevice: 11/18/2017 CHEST SINGLE AP HISTORY: Pneumonitis COMPARISON: 11/16/2017. FINDINGS: Semierect AP portable chest x-ray. Lines/tubes: None. Lungs/pleura: Peripheral consolidation in the bilateral mid lung, right greater than left. Consolidation in the lung bases, right greater than left. Reticular opacities throughout the rest of the lungs. Possible small right pleural effusion. No definite pneumothorax. Heart: Stable heart size. Mediastinum: Stable mediastinal contours. Aortic calcifications. Bony structures/body wall: Degenerative changes in the spine. No acute osseous findings. IMPRESSION: No significant change compared with 11/16/2017. Report Dictated By: Domenico Ellison MD at 11/18/2017 6:35 AM Report E-Signed By: Domenico Ellison MD at 11/18/2017 6:38 AM WSN:[id number] FACILITY: [facility] [place] PATIENT NAME: Mehul Majano : 1930 MR: [id number] V: [id number] EXAM DATE: ORDERING PHYSICIAN: JEAN CARLOS BORJA TECHNOLOGIST: [place] [facility] [place]: Mehul Majano : 1930 Visit/Account:[id number] Date of Sevice: 11/06/2017 Examination: Computed tomography thorax without contrast HISTORY: Infiltrates. Further evaluate. TECHNIQUE: Transaxial computed tomography images are obtained of the thorax without contrast. Multiplanar reformatted images were created in the coronal and sagittal planes. One of the following dose optimization techniques was utilized in the performance of this exam: Automated exposure control; adjustment of the mA and/ or kV according to the patient's size; or use of an iterative reconstruction technique. Specific details can be referenced in the facility's radiology CT exam operational policy. Comparison: Plain films dated 11/05/2017 and October 13, 2015 are reviewed. FINDINGS: On this noncontrast study, no enlarged axillary lymph nodes are seen. There are multiple calcified hilar and mediastinal nodes present which are characteristic of old granulomatous disease. There are other, noncalcified lymph nodes identified. A precarinal node is enlarged on image 42 and measures 1.4 x 1.7 cm in size. A right paratracheal node on image 38 measures 1.2 cm in size. There are additional nodes seen in the upper anterior mediastinum with a node measuring 1.5 cm on image 26. Enlarged retrocrural nodes are seen. A left retrocrural node on image 79 measures 2.2 x 1.6 cm. No pericardial effusion. There are small bilateral pleural effusions. Atherosclerotic calcifications are seen within the aortic arch and the arch vessels as well as the coronary arteries. With respect to the lung windows, there are coronel lobar groundglass infiltrates seen bilaterally. These have a mid and upper lung predominant distribution. There is relative sparing of the far posterior inferior lung bases. There are areas of septal line thickening. There are cystic changes seen throughout the lungs. In the acute setting, appearance would favor groundglass infiltrates superimposed upon underlying centrilobular and paraseptal emphysema. This could be related to an inflammatory pneumonitis such as hypersensitivity pneumonitis. This could be related to a drug hypersensitivity. This less likely represents pulmonary alveolar proteinosis. Typical versus atypical infection would also be included in the differential. Clinical correlation is necessary. Chronic interstitial lung disease is felt to be less likely as the lungs were clear on the 2016 exam. In addition, there are bronchiectatic changes present centrally. There are scattered calcified nodules which are characteristic of old granulomatous disease. No compression fractures are seen. Degenerative changes involve the thoracic spine. Limited images of the upper abdomen demonstrate old granulomatous disease in the spleen. Abdominal aorta is atherosclerotic. IMPRESSION: 1. Dense coronel lobar groundglass infiltrates throughout both lungs with a mid and upper lung predominant distribution. There are scattered areas of septal line thickening. In the acute setting, the CT appearance would favor an inflammatory pneumonitis superimposed upon underlying centrilobular and paraseptal emphysema. Typical versus atypical infectious etiologies or pulmonary alveolar proteinosis would also be the differential. Clinical correlation necessary. This requires short interval follow-up CT scan. Consider pulmonary consultation. 2. Mediastinal and retrocrural adenopathy. 3. Old granulomatous disease. 4. Diffuse atherosclerosis. Report Dictated By: Bright Lyon at 11/06/2017 10:53 AM Report E-Signed By: Bright Lyon at 11/06/2017 11:05 AM WSN:[id number] Condition: Improved Discharge: Another Hospital Time Spent: < 30 min Discharge Instructions Home Meds Active Scripts Omeprazole (OMEPRAZOLE) 20 Mg Capsule.dr, 1 CAP PO QDAY, #90 TAB 3 Refills Prov:ZHANG GORDILLO MD 10/10/17 Hydrochlorothiazide (HYDROCHLOROTHIAZIDE) 12.5 Mg Capsule, 1 TAB PO QDAY, #90 CAPSULE 3 Refills Prov:ZHANG GORDILLO MD 09/29/17 Lisinopril (LISINOPRIL) 5 Mg Tablet, 1 TAB PO QDAY, #30 TAB 1 Refill Prov:ZHANG GORDILLO MD 09/27/17 Levothyroxine Sodium (LEVOXYL) 125 Mcg Tablet, 1 TAB PO QDAY, #90 TAB 4 Refills Prov:ZHANG GORDILLO MD 09/13/16 Simvastatin (SIMVASTATIN) 20 Mg Tablet, 1 TAB PO HS, #90 TAB 4 Refills Prov:ZHANG GORDILLO MD 07/06/16 Allopurinol (ALLOPURINOL) 100 Mg Tablet, 2 TAB PO DAILY, #180 TAB 4 Refills Prov:ZHANG GORDILLO MD 07/06/16 Reported Medications Selenium (SELENIUM) 100 Mcg Tablet, 1 TAB PO QDAY 07/01/15 Magnesium Oxide (MAGNESIUM) 250 Mg Tablet, 1 TAB PO QDAY 07/01/15 Zinc Amino Acid Chelate (ZINC) 50 Mg Tablet, 1 TAB PO QDAY, CAPSULE 07/01/15 Glucosa Adler 2KCL/Chondroitin Adler (GLUCOSAMINE & CHONDROITIN CAP) 1 Each Capsule, 1 CAP PO BID, CAPSULE 07/01/15 Calcium Carbonate/Vitamin D3 (CALCIUM + VITAMIN D TABLET) 1 Each Tablet, 1 TAB PO QDAY 07/01/15 Diet: Regular Activity: As Tolerated Special Instructions: The patient will be transferred to [facility] for evaluation of his persistent pneumonitis and high O2 requirements. He can be transferred back to [facility] for ongoing rehabilitation when appropriate. Copies to: ZHANG GORDILLO MD Venous Thromboembolism Antithrombotics Is Pt On Any Antithrombotics?: Yes RENETTA STONE MD Nov 24, 2017 13:15
--- NOTE | 2017-11-25 08:55 | OT ECF NOTE ---
Type of Note: Discharge Note Primary Medical Diagnosis: Generalized weakness s/p pneumonitis, hypercalcemia, and acute renal failure Occupational Therapy Evaluation Date: 11/18/17 SUBJECTIVE: Prior Hospitalization: H 11/05/17 thru 11/18/17 Prior Level of Function: Pt reports (I) with ADLs and occasional assist from spouse for IADLs Prior Living Status: Multilevel house, Spouse Community Services: No known needs Home Accessibility: Stairs with rails (2-3 stairs to enter home, 4 levels within home) Walk-in shower Tub/shower combination Equipment Owned: Cane Tub/shower chair Medical Complications/Past Medical History: Gout, ess. HTN, see EMR for further information Psychosocial Support: Supportive spouse Pain Scale (0-10): None reported at time of evaluation Hand Dominance: Right-Pt reports concerns with decreased bilateral hand strength and essential tremor. Addressed with skilled OT intervention. OBJECTIVE: Strength: MMT: Right Left Shoulder Flexion WFL WFL Elbow Flexion WFL WFL Wrist Extension WFL WFL Traffic Rate Clerk WFL WFL (5= normal, 4= good, 3= fair, 2= poor, 1= trace) ROM: Both upper extremities, WFL Sensation: Neuropathy in bilateral feet Functional Transfer: Assistive Device: Front wheeled walker, Gait belt Transfer Ability: CGA/SBA for transfers and mobility. Min A for O2 tubing management as pt did not wear O2 prior to admission. SpO2 WNL on 8L at rest. With mobility in the room, pt requiring 12L to maintain SpO2 >88%. Frequent v/c' s for pursed lip breathing and energy conservation strategies. Pt continued to require increased levels of O2 with activity. ADL: Upper body dressing: Assistive device: None Upper body dressing ability: Set-up Lower body dressing: Assistive device: None Lower body dressing ability: Minimum assist Toileting: Assistive device: None Toileting ability: SBA Grooming/hygiene: Assistive device: None Grooming ability: SBA with v/c's for O2 management Bathing: Assistive device: Bathing ability: N/T Standardized Assessment: Kayli Index of Activities of Daily Livin/20 upon initial evaluation (). 16/20 at discharge (11/24/17). ASSESSMENT: [facility] decreased activity tolerance impacting safe engagement in ADLs/IADLs. At PLOF, pt was (I) with ADLs/IADLs and required no supplemental O2. Pt continued to have high O2 demands with exertion and was transferred to [facility] for further medical care. Problem List/Current Limitations: Decreased activity tolerance Poor safety awareness Shortness of breath Short Term Goals: 1) Pt will be Mod (I) UB/LB dressing. Goal not met. 2) Pt will be Mod (I) grooming/hygiene seated. Goal not met. 3) Pt will be Mod (I) toileting. Goal not met. 4) Pt will be Mod (I) shower task. Goal not met. 5) Pt Kayli Index of ADLs score will improve by 2 points. Goal not met. 6) Pt will be educated on energy conservation techniques. Goal not met. Usp Goals: Return home with spouse Patient Goals: Return to [facility], improve tolerance for activities, and improve hand strength Rehabilitation Prognosis: Good Barriers to Discharge: Oxygen demands, medical history PLAN: The patient transferred to [facility] for further medical care. Thank you for this referral. If you have any questions, concerns, or comments about this report or plan, please contact me at . Tressa Ayers MS, OTR/L Occupational Therapist RED
[2017-11-25] MEDS ORDERED: predniSONE 10 MG TAB PO SCH (09:00)
--- NOTE | 2017-11-25 14:17 | PT ECF NOTE ---
Type of Note: Discharge Summary Primary Medical Diagnosis: Hypercalcemia; dehydration Physical Therapy Evaluation Date: 11/18/17 SUBJECTIVE: Prior Hospitalization: Med/Surg at [facility] from 11/05/17-11/18/17 for hypercalcemia, dehydration and generalized weakness; [facility] ECF 11/18/17-11/24/17 for physical and occupational rehabilitation. Prior Level of Function: Pt notes that he was indep with ADL's and 's assist with some IADL's. Prior Living Status: Multilevel house; Spouse Community Services: No known needs Home Accessibility: Stairs with rails Equipment Owned: [email or web address] Medical Complications/Past Medical History: See EMR Psychosocial Support: Pt notes good support from spouse Pain Scale (0-10): None reported at time of eval OBJECTIVE: Strength: B) LE's 4-/5 overall with generalized weakness ROM: (please note any abnormalities) No limitations noted Sensation: (please note any abnormalities) No paresthesias reported Other Neuro findings: n/a Bed Mobility: Mod I with bed rail and HOB elevated Transfers: Mod I Assistive Device: Front wheeled walker Gait: SBA x20-75' Assistive device: Front wheeled walker Stairs: CGA x4 steps Assistive device: bilateral rails ASSESSMENT: Pt made good functional progress with skilled physical therapy, however, continued to require 8-12 L O2 during activity with SO2 decreasing into 70s-80s%. Pt was transferred out of this facility for additional pulmonary consultation. Problem List/Current Limitations: Decreased activity soledad; Decreased balance ; Generalized weakness; Decreased problem solving Shortness of breath Short Term Goals: Not met due to transfer out of facility. 1. Pt to be modified indep with bed mobility and supine to/from sit transfers 2. Pt to be modified indep with sit to/from stand transfers from a variety of surfaces. 3. Pt to maintain O2 sats in safe range with decreased O2 demand during ADL's and increased ambulation, with proper safety awareness for O2 tubing management. 4. Pt to soledad ambulation x 300' with least restrictive device, modified indep and TUG test improved by 5 seconds. 5. Pt to soledad up/down 12 steps with rail and proper O2 management with energy conservation techniques as needed, with modified indep. Intermediate Goals: Pt to return home with decreased O2 demand and appropriate safety awareness to manage O2 tubing effectively. Patient Goals: Return home without need for supplemental O2. Rehabilitation Prognosis: Good Barriers for Discharge: Pt is limited in ability to progress therapy aggressively, due to O2 demand and difficulty maintaining O2 sats even on 12 L/ min at time of eval. PLAN: Pt transferred out of facility for additional pulmonary consultation. Thank you for this referral. If you have any questions, concerns, or comments about this report or plan, please contact me at . Lauren Palma, PT, DPT, GCS MTDD
[2017-11-28] MEDS ORDERED: predniSONE 5 MG TAB PO SCH (09:00)
[2017-12-01] MEDS ORDERED: predniSONE 5 MG TAB PO SCH (09:00)
[2017-12-04] MEDS ORDERED: predniSONE 5 MG TAB PO SCH (09:00)
== END 2017-11-24 13:40 | disposition short-term general hospital (02) | DRG 195 ==
LOC: ECF 13:47
PROVIDERS: ADMIT Internal Medicine; ATTEND Internal Medicine
DX: J18.9 Pneumonia, unspecified organism (principal); E21.0 Primary hyperparathyroidism; R53.1 Weakness; I10 Essential (primary) hypertension; Z87.891 Personal history of nicotine dependence; E03.9 Hypothyroidism, unspecified; M1A.9XX0 Chronic gout, unspecified, without tophus (tophi); Z92.3 Personal history of irradiation; Z85.72 Personal history of non-Hodgkin lymphomas
CPT/HCPCS: 36415; 82310; 82374; 82435; 82565; 82947; 83880; 84132; 84295; 84520; 85025; 94640; 94667; 94668; 97161; 97165; J1650; J7512

== ENCOUNTER → 2017-11-24 | Outpatient (CLI) | payer MEDICARE, BC ==
[2017-11-18 15:24] VITALS: BMI 27.4
== END ==
LOC: AMB 13:24
PROVIDERS: ATTEND Nurse Practitioner
DX: R53.1 Weakness (principal); R09.02 Hypoxemia
CPT/HCPCS: A0425; A0428

== ENCOUNTER 2017-12-29 09:45 | Outpatient (RCR) | payer MEDICARE, BC ==
[2017-11-18 15:24] VITALS: BMI 27.4
[~2017-12-29 09:45] MED LIST changes: +FURO-45 PO; +FURO-47 PO; +GLIP2.5T14 PO; +IPRA3AMP10 IH; -IPRA3AMP21 IH; +LEVO150T78 PO; +MELA10CA PO; +METO25TA93 PO; +OXYGENHOME INH; +POLY17PO25 PO; +POTA-23 PO; +SULF1TAB24 PO
[2017-12-29 09:54] VITALS: BP 143/72
[2017-12-29 10:12] LABS: PLATELET COUNT, AUTOMATED 101 K/uL (150-450)
--- NOTE | 2017-12-29 17:16 | EL-TARABILY ONCOLOGY NOTE ---
EVENT DATE: December 29, 2017 DIAGNOSES 1. 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 2. Progressive interstitial lung disease with hypoxemia. 3. Inflammatory anemia. CHIEF COMPLAINT Patient is here today for followup of his recurrent CLL/SLL. ONCOLOGY HISTORY Patient is an 86-year-old male who was admitted at [facility] on the October for initial diagnosis of community-acquired pneumonia, whose acute respiratory failure was hypoxemia, associated acute kidney injury, and hypercalcemia attributed to dehydration and diuretic adverse effect. He was treated with a nine-day course of antibiotics, including ceftriaxone and azithromycin. He had improvement in his oxygen requirement, but he remains with diffuse patchy ground-glass infiltrates on his chest. He was transferred from [facility] to [facility], and the patient remained oxygen dependent 4L to 6L per minute with significant desaturation with any kind of activity. Cardiac workup showed normal echocardiogram, and rheumatoid and the YUMIKO serology were negative. CT chest on the November showed progressive interstitial disease to include all lobes with developing consolidation. CT abdomen and pelvis on the November showed moderate-sized periaortic lymph nodes extending through the abdomen. CBC showed leukocytosis and absolute lymphocytosis. White cell count was 13.02 with ALC 7.5, hemoglobin 10.9, and the platelet count 88,000. The retic count absolute was high at 0.12. Serum, folate, and B12 were normal. Ferritin was normal at 223, and the transferrin was low at 182, consistent with inflammatory anemia. Patient had bronchoscopy with biopsy of the right upper lobe and a bronchial washing done on the November, and the pathology came back negative for malignancy for the biopsy of the right upper lobe and for the general washing, but flow cytometry of the right upper lobe bronchial wash was positive for monoclonal B-cell, suggestive of CLL/SLL by flow cytometry. He had flow cytometry of the peripheral blood and FISH for CLL done on the November, and the flow cytometry was suggestive of B-cell CLL/SLL, but the FISH showed positivity for trisomy-12 and for deletion (17p). PAST MEDICAL HISTORY 1. Hypertension. 2. Hyperlipidemia. 3. Hypothyroidism. 4. GERD. 5. Gout. 6. Osteoarthritis. 7. Right inguinal lymphoma, status post radiation therapy 1955. 8. History of CLL/SLL. PAST SURGICAL HISTORY Bronchoscopy with washings and biopsy done on the November. SOCIAL HISTORY Patient is a former smoker with [id number] of smoking, quit 20 years ago. He drinks alcohol rarely. No abuse of illicit drugs. FAMILY HISTORY Father had a perforated gastric ulcer, and mother had GI bleed. Brother had rheumatoid arthritis. CURRENT MEDICATIONS 1. Melatonin 10 mg at bedtime. 2. Oxygen 3L to 10L per minute as needed. 3. Bactrim one tablet three times a week. 4. Prednisone 20 mg three tablets daily. 5. MiraLAX 17 g as needed for constipation. 6. Metoprolol 25 mg twice daily. 7. Levothyroxine 150 mcg daily. 8. Glipizide 2.5 mg daily. 9. Lasix 20 mg daily. 10. Lisinopril 5 mg daily. 11. Omeprazole 20 mg daily. 12. Simvastatin 20 mg at bedtime. 13. Allopurinol 100 mg daily. 14. Selenium 100 mcg daily. 15. Magnesium oxide 250 mg daily. 16. Zinc/amino acid chelate 50 mg tablet daily. 17. Glucosamine and chondroitin sulfate one capsule twice daily. 18. Calcium carbonate/vitamin D3 one tablet daily. ALLERGIES NO KNOWN DRUG ALLERGIES. REVIEW OF SYSTEMS CONSTITUTIONAL: No appetite or weight change. No fever, chills or sweating. No recent infection. HEENT: Ears: No tinnitus or hearing problem. Nose: No nasal discharge or epistaxis. Throat: No sore throat or mouth ulcers. Eyes: No diplopia or visual changes. RESPIRATORY: He has shortness of breath. No cough, expectoration or hemoptysis. CARDIOVASCULAR: No chest pain, orthopnea, or paroxysmal nocturnal dyspnea (PND) . He has edema of the lower extremities. No palpitations. GASTROINTESTINAL: No nausea or vomiting. No diarrhea or constipation. No change in bowel movements. No heartburn or swallowing difficulties. No abdominal pain. No jaundice. No hematemesis, melena or rectal bleeding. GENITOURINARY: He has increased frequency of urine because of the diuretic therapy. MUSCULOSKELETAL: He has back pain and neck pain lately from falling down at home. NEUROLOGICAL: He has tingling and numbness in the hands. No headaches or convulsions. HEMATOLOGIC/LYMPHATIC: He bruises easily. He is weak, tired, and fatigued. No enlarged lymph nodes. SKIN: No skin rash or lumps. PSYCHIATRIC: No anxiety or depression. PHYSICAL EXAMINATION GENERAL: Looks stable. Well developed, well nourished, and in no acute distress. VITAL SIGNS: Blood pressure 143/72, pulse 79 per minute, respirations 16 per minute, temperature 97.2, pulse oximetry 94% on 2L oxygen. HEENT: Head: Atraumatic. No sinus tenderness to palpation. Eyes: No icterus or conjunctivitis. Mouth and throat: No oral thrush or mucositis. NECK: Supple. No cervical or supraclavicular lymphadenopathy. LUNGS: Clear to auscultation and percussion bilaterally. HEART: Regular rate and rhythm. No gallops, murmurs, clicks or rubs. ABDOMEN: Soft and lax. No tenderness. No hepatosplenomegaly. No masses. EXTREMITIES: No cyanosis, clubbing or edema. LYMPHATICS: No peripheral lymphadenopathy. NEUROLOGICAL: Conscious, alert and oriented times three. No focal motor or sensory deficits. PSYCHIATRIC: Mood and affect appear normal. SKIN: No skin rash, bruise or purpuric eruption. DIAGNOSTIC/LABORATORY STUDIES CBC showed white count 14.9, hemoglobin 11.1, hematocrit 33.4, platelets 101, 000. Absolute lymphocytic count was 8.6. Chem panel totally normal except BUN 24, creatinine 1.5, blood sugar 114, LDH 919, total protein 5.4, and albumin 3.3. ASSESSMENT 1. 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 Flow cytometry of the peripheral blood done on the November came back positive for chronic lymphocytic leukemia/small lymphocytic lymphoma. FISH for chronic lymphocytic leukemia done the same day came back positive for trisomy- 12 and deletion (17p). Given this information, patient could have a good benefit from Imbruvica (ibrutinib). I am planning to use the full dose initially, and I will adjust the dose based on his response and reaction to the treatment. I spent a long time with the patient and his family today explaining the plan of management, and they are agreeable with such a plan. I am planning to see him in a month after starting ibrutinib with CBC, chemistry panel, LDH, and uric acid. 2. Progressive interstitial pulmonary disease, proven by bronchoscopy with right upper lobe biopsy done on the November. There was no evidence of malignancy, but flow cytometry of the bronchial wash of the right upper lobe came back positive for B-cell chronic lymphocytic leukemia/small lymphocytic leukemia. 3. Inflammatory anemia. B12, folate levels were within the normal range. Transferrin is low at 182, and the ferritin is normal at 223, consistent with inflammatory anemia. I will consider blood transfusion if the hemoglobin drops below 8 g/dL. PLAN 1. Imbruvica or ibrutinib. 2. Patient to return in one month after starting ibrutinib with CBC, chem panel , LDH, uric acid. 3. Patient to contact us for any new concerns or complaints. MTDD
== END 2018-01-01 09:04 | disposition home or self-care (01) ==
LOC: SPU 09:45
PROVIDERS: ATTEND Internal Medicine Hematology
DX: C91.Z0 Other lymphoid leukemia not having achieved remission (principal); C83.08 Small cell B-cell lymphoma, lymph nodes of multiple sites; J39.9 Disease of upper respiratory tract, unspecified; D64.89 Other specified anemias; Z87.891 Personal history of nicotine dependence; Z79.899 Other long term (current) drug therapy; R53.1 Weakness; R53.83 Other fatigue; R06.02 Shortness of breath
CPT/HCPCS: 36415; 82040; 82247; 82310; 82374; 82435; 82565; 82947; 83615; 84075; 84132; 84155; 84295; 84450; 84460; 84520; 84550; 85025; 99212

== ENCOUNTER 2017-12-31 23:19 | Inpatient (IN) | payer MEDICARE, BC ==
[~2017-12-31] VITALS: Ht 172.7 cm; Wt 88.6 kg
--- NOTE | 2017-12-31 23:26 | ER Report ---
History and Physical Time Seen By MD: 23:23 HPI/ROS CHIEF COMPLAINT: Left leg swelling and pain HISTORY OF PRESENT ILLNESS: 87-year-old male with a complex past medical history , see recent oncology note as well as internal medicine visit. Patient was admitted approximately one month ago for pneumonia. He was transferred over to [facility] [place] for pulmonary consultation and bronchoscopy. Please see those results. Patient now presents with increasing redness to his left leg. He was seen in internal medicine clinic on 12/29/17 with some redness around his ankle and some open wounds on his foot. The erythema has spread all the way up the posterior aspect of his left leg to the groin area. Patient notes this is GERD over the last 24 hours. Patient notes no fever, chills or body aches. He has a history of CLL and lymphoma. Patient also on high-dose prednisone. Patient's also type II diabetic on oral agents. REVIEW OF SYSTEMS: Respiratory: No cough, no dyspnea. Cardiovascular: No chest pain, no palpitations. Gastrointestinal: No vomiting, no abdominal pain. Musculoskeletal: As above Allergies: Coded Allergies: latex (Verified Allergy, Mild, RASH, 12/31/17) Home Meds Active Scripts Furosemide (FUROSEMIDE) 40 Mg Tablet, 1 TAB PO QDAY, #90 TAB 3 Refills Prov:ZHANG GORDILLO MD 12/28/17 Metoprolol Tartrate (METOPROLOL TARTRATE) 25 Mg Tablet, 1 TAB PO BID, #180 TAB 3 Refills Prov:ZHANG GORDILLO MD 12/28/17 Glipizide (GLIPIZIDE ER) 2.5 Mg Tab.er.24, 1 TAB PO QDAY, #90 TAB 3 Refills Prov:ZHANG GORDILLO MD 12/28/17 Lisinopril (LISINOPRIL) 5 Mg Tablet, 1 TAB PO QDAY, #90 TAB 3 Refills Prov:ZHANG GORDILLO MD 12/28/17 Sulfamethoxazole/Trimethoprim (SULFAMETHOXAZOLE-TMP DS TABLET) 1 Each Tablet, 1 TAB PO 3XW, #36 TAB 3 Refills Prov:ZHANG GORDILLO MD 12/15/17 Prednisone (PREDNISONE) 20 Mg Tablet, 3 TAB PO QDAY, #270 TAB 0 Refills Prov:ZHANG GORDILLO MD 12/15/17 Levothyroxine Sodium (LEVOTHYROXINE SODIUM) 150 Mcg Tablet, 1 TAB PO QDAY, #90 TAB 3 Refills Prov:ZHANG GORDILLO MD 12/15/17 Omeprazole (OMEPRAZOLE) 20 Mg Capsule.dr, 1 CAP PO QDAY, #90 TAB 3 Refills Prov:ZHANG GORDILLO MD 10/10/17 Simvastatin (SIMVASTATIN) 20 Mg Tablet, 1 TAB PO HS, #90 TAB 4 Refills Prov:ZHANG GORDILLO MD 07/06/16 Allopurinol (ALLOPURINOL) 100 Mg Tablet, 2 TAB PO DAILY, #180 TAB 4 Refills Prov:ZHANG GORDILLO MD 07/06/16 Reported Medications Potassium Chloride (KLOR-CON 10) 10 Meq Tablet.er, 1 TAB PO QDAY, TAB 12/28/17 Melatonin (MELATONIN) 10 Mg Capsule, 1 CAP PO HS Y for sleeplessness, CAPSULE 12/15/17 Oxygen (OXYGEN) Inha, 3-10 L INH cont, 3 liters per mask at rest and hs, 10 liters per mask with exertion 12/15/17 Polyethylene Glycol 3350 (MIRALAX) 17 Gm Powd.pack, 1 PACK PO QDAY Y for constipation, GM 12/15/17 Selenium (SELENIUM) 100 Mcg Tablet, 1 TAB PO QDAY 07/01/15 Magnesium Oxide (MAGNESIUM) 250 Mg Tablet, 1 TAB PO QDAY 07/01/15 Zinc Amino Acid Chelate (ZINC) 50 Mg Tablet, 1 TAB PO QDAY, CAPSULE 07/01/15 Glucosa Adler 2KCL/Chondroitin Adler (GLUCOSAMINE & CHONDROITIN CAP) 1 Each Capsule, 1 CAP PO BID, CAPSULE 07/01/15 Calcium Carbonate/Vitamin D3 (CALCIUM + VITAMIN D TABLET) 1 Each Tablet, 1 TAB PO QDAY 07/01/15 Discontinued Scripts Furosemide (FUROSEMIDE) 20 Mg Tablet, 1 TAB PO QDAY, #90 TAB 3 Refills Prov:ZHANG GORDILLO MD 12/15/17 Past Medical/Surgical History PAST MEDICAL HISTORY 1. Hypertension. 2. Hyperlipidemia. 3. Hypothyroidism. 4. GERD. 5. Gout. 6. Osteoarthritis. 7. Right inguinal lymphoma, status post radiation therapy 1955. 8. History of CLL/SLL. PAST SURGICAL HISTORY Bronchoscopy with washings and biopsy done on the November. SOCIAL HISTORY Patient is a former smoker with [id number] of smoking, quit 20 years ago. He drinks alcohol rarely. No abuse of illicit drugs. Reviewed Nurses Notes: Yes Old Medical Records Reviewed: Yes Hx Smoking: Yes Smoking Status: Former Smoker Exposure to Second Hand Smoke?: Yes Hx Alcohol Use: No Constitutional Vital Sign - Last 24 Hours 12/31/17 12/31/17 12/31/17 12/31/17 23:22 23:24 23:34 23:39 Temp 99.8 Pulse 94 90 87 B/P (MAP) 90/47 (61) 90/47 Pulse Ox 88 97 97 O2 Delivery Room Air 12/31/17 01/01/18 01/01/18 01/01/18 23:53 00:01 00:05 00:09 Pulse 98 Resp 15 B/P (MAP) 75/56 (62) 88/47 (61) Pulse Ox 98 O2 Flow Rate 3.0 01/01/18 01/01/18 01/01/18 01/01/18 00:10 00:15 00:20 00:30 Pulse 93 92 Resp 12 14 12 B/P (MAP) 82/41 (55) 81/37 (52) Pulse Ox 98 98 98 01/01/18 01/01/18 01/01/18 01/01/18 00:35 00:47 00:50 00:54 Pulse 94 101 92 Resp 8 19 15 B/P (MAP) 84/43 (57) Pulse Ox 98 97 97 01/01/18 01/01/18 01/01/18 01/01/18 00:59 01:00 01:14 01:15 Pulse 99 102 Resp 23 22 B/P (MAP) 82/41 (55) 81/45 (57) Pulse Ox 97 95 01/01/18 01/01/18 01/01/18 01/01/18 01:29 01:44 01:45 01:58 Pulse 98 92 Resp 24 18 B/P (MAP) 61/42 (48) 74/39 (51) Pulse Ox 97 01/01/18 01/01/18 01:59 02:00 Pulse 98 Resp 15 B/P (MAP) 69/35 (46) Pulse Ox 96 Physical Exam Hypotension, fever 99.8. Pulse ox 88% on his baseline 3 L, patient seems in good spirits, skin warm, dry, pink General Appearance: The patient is alert, has no immediate need for airway protection and no current signs of toxicity. Alert and oriented 3 HEENT: Pupils equal and round no injection. Oropharynx without redness or exudate, mucous. Membranes are moist Respiratory: Chest is non tender, lungs are clear to auscultation. Bibasilar rhonchi and Rales noted Cardiac: regular rate and rhythm Gastrointestinal: Abdomen is soft and non tender, no masses, bowel sounds normal. Musculoskeletal: Neck: Neck is supple and non tender. No lymphadenopathy, no JVD Extremities have full range of motion and are non tender. Left lower extremity with gross edema to the groin with moderate erythema and warmth to the touch. There is some skin breakdown in scale noted to the skin. There is a dressing on the left foot that was placed by certified coding specialist on 12/29/17 Skin: No rashes or lesions. DIFFERENTIAL DIAGNOSIS: After history and physical exam differential diagnosis was considered for cellulitis, left lower extremity, DVT, sepsis, edema. Medical Decision Making Data Points Result Diagram: 12/31/17 2332 12/31/17 2332 Laboratory Hematology Test 12/31/17 23:32 01/01/18 01:59 Red Blood Count 3.23 M/uL (4.00-5.60) Mean Corpuscular Volume 97.4 fL (80.0-96.0) Mean Corpuscular Hemoglobin 33.2 pg (26.0-33.0) Mean Corpuscular Hemoglobin Concent 34.1 g/dL (32.0-36.0) Red Cell Distribution Width 18.2 % (11.5-14.5) Mean Platelet Volume 8.1 fL (7.2-11.1) Neutrophils (%) (Auto) 10.4 % (39.4-72.5) Lymphocytes (%) (Auto) 88.7 % (17.6-49.6) Monocytes (%) (Auto) 0.3 % (4.1-12.4) Eosinophils (%) (Auto) 0.1 % (0.4-6.7) Basophils (%) (Auto) 0.5 % (0.3-1.4) Nucleated RBC Relative Count (auto) 0.1 /100WBC Neutrophils # (Auto) 0.4 K/uL (2.0-7.4) Lymphocytes # (Auto) 3.3 K/uL (1.3-3.6) Monocytes # (Auto) 0.0 K/uL (0.3-1.0) Eosinophils # (Auto) 0.0 K/uL (0.0-0.5) Basophils # (Auto) 0.0 K/uL (0.0-0.1) Nucleated RBC Absolute Count (auto) 0.00 K/uL Peripheral Blood Smear Yes Y/N Erythrocyte Sedimentation Rate 13 mm/HOUR (0-20) Sodium Level 136 mmol/L (137-145) Potassium Level 4.0 mmol/L (3.5-5.0) Chloride Level 101 mmol/L (98-107) Carbon Dioxide Level 27 mmol/L (22-30) Blood Urea Nitrogen 23 mg/dl (9-21) Creatinine 1.40 mg/dl (0.66-1.25) Glomerular Filtration Rate Calc 48.1 Random Glucose 76 mg/dl (75-110) Lactate 2.7 mmol/L (0.7-2.1) Calcium Level 8.8 mg/dl (8.4-10.2) Total Bilirubin 1.4 mg/dl (0.2-1.3) Aspartate Amino Transf (AST/SGOT) 19 U/L (0-35) Alanine Aminotransferase (ALT/SGPT) 40 U/L (0-56) Alkaline Phosphatase 49 U/L (0-126) Troponin I 0.035 ng/ml C-Reactive Protein 16.0 mg/dl (<1.0) B-Type Natriuretic Peptide 329 pg/ml (0-100) Total Protein 4.9 g/dl (6.3-8.2) Albumin 2.9 g/dl (3.5-5.0) Urine Color Yellow Urine Clarity Clear Urine pH 6.0 pH (4.8-9.5) Urine Specific [place] 1.014 Urine Protein Negative mg/dL (NEGATIVE) Urine Glucose (UA) Negative mg/dL (NEGATIVE) Urine Ketones Negative mg/dL (NEGATIVE) Urine Blood Negative (NEGATIVE) Urine Nitrite Negative (NEGATIVE) Urine Bilirubin Negative (NEGATIVE) Urine Urobilinogen Negative mg/dL (0.2-1.9) Urine Leukocyte Esterase Negative (NEGATIVE) Urine RBC 1 /HPF (0-2/HPF) Urine WBC 1 /HPF (0-5/HPF) Urine Squamous Epithelial Cells Few /LPF (NONE-FEW) Urine Bacteria Few /HPF (NONE-FEW) Urine Hyaline Casts Few /LPF (NONE-FEW) Urine Mucus None /HPF (NONE-FEW) Chemistry Test 12/31/17 23:32 01/01/18 01:59 White Blood Count 3.7 k/uL (4.5-11.0) Red Blood Count 3.23 M/uL (4.00-5.60) Hemoglobin 10.7 g/dL (14.0-18.0) Hematocrit 31.5 % (42.0-52.0) Mean Corpuscular Volume 97.4 fL (80.0-96.0) Mean Corpuscular Hemoglobin 33.2 pg (26.0-33.0) Mean Corpuscular Hemoglobin Concent 34.1 g/dL (32.0-36.0) Red Cell Distribution Width 18.2 % (11.5-14.5) Platelet Count 81 K/uL (150-450) Mean Platelet Volume 8.1 fL (7.2-11.1) Neutrophils (%) (Auto) 10.4 % (39.4-72.5) Lymphocytes (%) (Auto) 88.7 % (17.6-49.6) Monocytes (%) (Auto) 0.3 % (4.1-12.4) Eosinophils (%) (Auto) 0.1 % (0.4-6.7) Basophils (%) (Auto) 0.5 % (0.3-1.4) Nucleated RBC Relative Count (auto) 0.1 /100WBC Neutrophils # (Auto) 0.4 K/uL (2.0-7.4) Lymphocytes # (Auto) 3.3 K/uL (1.3-3.6) Monocytes # (Auto) 0.0 K/uL (0.3-1.0) Eosinophils # (Auto) 0.0 K/uL (0.0-0.5) Basophils # (Auto) 0.0 K/uL (0.0-0.1) Nucleated RBC Absolute Count (auto) 0.00 K/uL Peripheral Blood Smear Yes Y/N Erythrocyte Sedimentation Rate 13 mm/HOUR (0-20) Glomerular Filtration Rate Calc 48.1 Lactate 2.7 mmol/L (0.7-2.1) Calcium Level 8.8 mg/dl (8.4-10.2) Total Bilirubin 1.4 mg/dl (0.2-1.3) Aspartate Amino Transf (AST/SGOT) 19 U/L (0-35) Alanine Aminotransferase (ALT/SGPT) 40 U/L (0-56) Alkaline Phosphatase 49 U/L (0-126) Troponin I 0.035 ng/ml C-Reactive Protein 16.0 mg/dl (<1.0) B-Type Natriuretic Peptide 329 pg/ml (0-100) Total Protein 4.9 g/dl (6.3-8.2) Albumin 2.9 g/dl (3.5-5.0) Urine Color Yellow Urine Clarity Clear Urine pH 6.0 pH (4.8-9.5) Urine Specific [place] 1.014 Urine Protein Negative mg/dL (NEGATIVE) Urine Glucose (UA) Negative mg/dL (NEGATIVE) Urine Ketones Negative mg/dL (NEGATIVE) Urine Blood Negative (NEGATIVE) Urine Nitrite Negative (NEGATIVE) Urine Bilirubin Negative (NEGATIVE) Urine Urobilinogen Negative mg/dL (0.2-1.9) Urine Leukocyte Esterase Negative (NEGATIVE) Urine RBC 1 /HPF (0-2/HPF) Urine WBC 1 /HPF (0-5/HPF) Urine Squamous Epithelial Cells Few /LPF (NONE-FEW) Urine Bacteria Few /HPF (NONE-FEW) Urine Hyaline Casts Few /LPF (NONE-FEW) Urine Mucus None /HPF (NONE-FEW) Urinalysis Test 01/01/18 01:59 Urine Color Yellow Urine Clarity Clear Urine pH 6.0 pH (4.8-9.5) Urine Specific [place] 1.014 Urine Protein Negative mg/dL (NEGATIVE) Urine Glucose (UA) Negative mg/dL (NEGATIVE) Urine Ketones Negative mg/dL (NEGATIVE) Urine Blood Negative (NEGATIVE) Urine Nitrite Negative (NEGATIVE) Urine Bilirubin Negative (NEGATIVE) Urine Urobilinogen Negative mg/dL (0.2-1.9) Urine Leukocyte Esterase Negative (NEGATIVE) Urine RBC 1 /HPF (0-2/HPF) Urine WBC 1 /HPF (0-5/HPF) Urine Squamous Epithelial Cells Few /LPF (NONE-FEW) Urine Bacteria Few /HPF (NONE-FEW) Urine Hyaline Casts Few /LPF (NONE-FEW) Urine Mucus None /HPF (NONE-FEW) Microbiology Microbiology Date/Time Source Procedure Growth Status 12/31/17 00:45 Blood Peripheral Draw Blood Culture - Preliminary NO GROWTH SO FAR, SET LATE. REINCUBATED Resulted EKG/Imaging EKG Interpretation 12 lead EK Rhythm: normal sinus rhythm with a few premature atrial complexes Wiseman: normal QRS: normal ST segments: Nonspecific ST-T wave T-wave changes, comparison to previous EKG . There is normalization of the inverted T waves that were noted in the septal and anterior leads. Imaging X-ray: Two-view chest x-ray was obtained. I viewed the images myself on the PACS system. My interpretation of the images is: Hazy interstitial lung markings, appears much improved compared to previous chest x-ray 11/18/17. The radiologist interpretation had no clinically significant variation from this interpretation. Results: Ultrasound of the right lower extremity was obtained. The results of the study are no evidence of DVT. The study was read by the radiologist. I viewed the images myself on the PACS system. X-ray: Single view portable chest x-ray was obtained. I viewed the images myself on the PACS system. My interpretation of the images is: Central line placement and right superior vena cava/right atrium, there is no evidence of pneumothorax or pleural effusion. Lung khanna show increased pulmonary edema.. The radiologist interpretation had no clinically significant variation from this interpretation. ED Course/Re-evaluation Clinical Indication for ER IV: Hydration, IV Access ED Course Patient was admitted to an examination room. H&P was done. The differential diagnoses was considered. On arrival. On clinical examination, patient is a low-grade fever 99 8. His left lower extremity is grossly erythematous, suspicious for cellulitis.. Lactate is elevated at 2.7. His Pancytopenia on his CBC, which is a new finding. I wonder if this is related to chemotherapy initiated by oncology or bone marrow injury from CLL or the lymphoma. Patient' s ANC calculates out to be at 370. Patient's chest x-ray looks improved over his previous chest x-ray. I don't think there is an active infiltrate. He voices no shortness of breath or cough. Patient's EKG is unchanged. His troponin is indeterminate mildly elevated. His BNP is elevated at 329 suggesting some early congestive heart failure. Aggressive resuscitation with fluids 4 L. Which may be potentially dangerous by pushing him into failure and hypoxia. A Anne catheter will be used to get a urinary specimen to complete panculture monitor his fluid resuscitation and urinary output. Vancomycin will be administered here in the ER. 01/01/2018 1:51:25 am case was discussed with Dr. Isa Avina hospitalist on- call, who accepts the patient for admission to ICU 01/01/2018 2:57:39 am Procedure: Central line placement. After verbal informed consent from [patient]; with the risks explained to be bleeding, infection, and collapsed lung; maximal sterile barrier technique was uses including cap, gown, sterile gloves, large sheet, hand washing and chlorhexidine prep. The area anesthetized with 1% lidocaine. The right internal jugular was punctured with a 19 gauge finder needle, then a wire introducer was placed, 2 passes were attempted. The wire would not thread and was met with resistance. The procedure was therefore aborted. General surgery on-call, Dr. Dee was contacted come in and assist with central line placement. The procedure was performed by myself. Decision to Disposition Date: Dec 31, 2017 Decision to Disposition Time: 23:43 Critical Care Time I spent a total of 60 minutes of critical care time in obtaining history, performing a physical exam, bedside monitoring of interventions, collecting and interpreting tests and discussion with consultants but not including time spent performing procedures. Depart Departure Latest Vital Signs Vital Signs Date Time Temp Pulse Resp B/P (MAP) Pulse Ox O2 Delivery O2 Flow Rate FiO2 01/01/18 02:00 69/35 (46) 01/01/18 01:59 98 15 96 12/31/17 23:53 3.0 12/31/17 23:24 99.8 Room Air Impression: Primary Impression: Sepsis Additional Impressions: Left leg cellulitis CLL (chronic lymphocytic leukemia) Pancytopenia Hypotension Condition: Improved Disposition: Admitted from ER Referrals: ZHANG GORDILLO MD (PCP) Problem Qualifiers Primary Impression: Sepsis Sepsis type: sepsis due to unspecified organism Qualified Codes: A41.9 - Sepsis, unspecified organism Additional Impressions: Hypotension Hypotension type: unspecified hypotension type Qualified Codes: I95.9 - Hypotension, unspecified ADELA MOLINA DO Dec 31, 2017 23:26
[2017-12-31] MEDS ORDERED: NS(*) 0.9% 1000 ML BAG 1,000 ML IV ONE (23:30)
[2017-12-31] MEDS ORDERED: ACETAMINOPHEN 325 MG TAB PO ONE (23:30)
[2017-12-31 23:45] LABS: PLATELET COUNT, AUTOMATED 81 K/uL (150-450)
[2018-01-01] VITALS (90 sets, daily range): BP systolic 63–146; BP diastolic 30–92; Ht 172.7 cm; Wt 88.6 kg
--- NOTE | 2018-01-01 00:29 | RADIOLOGY IMAGING REPORT ---
FACILITY: [facility] PATIENT NAME: Mehul Majano : 1930 MR: [id number] V: [id number] EXAM DATE: ORDERING PHYSICIAN: ADELA MOLINA TECHNOLOGIST: Location: [facility] Patient: Mehul Majano : 1930 Visit/Account:[id number] Date of Sevice: 12/31/2017 TWO VIEW CHEST 12/31/2017 11:30 PM. INDICATION: FEVER COMPARISON: 11/18/2017. FINDINGS: Lungs are well-expanded. There is extensive bronchial wall thickening and probable diffuse fibrotic changes. Bilateral patchy opacification on the prior radiograph has largely resolved. No pneumothorax or pleural effusion. Pulmonary vasculature is unremarkable. Heart size is normal. Rem ote right rib fractures. IMPRESSION: Extensive probable chronic findings with no definite focal pneumonia. Report Dictated By: Honorio Espitia MD at 01/01/2018 12:22 AM Report E-Signed By: Honorio Espitia MD at 01/01/2018 12:26 AM WSN:[id number]
[2018-01-01] MEDS ORDERED: NS(*) 0.9% 1000 ML BAG 1,000 ML IV ONE ×5 (00:40→04:00)
--- NOTE | 2018-01-01 01:48 | RADIOLOGY IMAGING REPORT ---
FACILITY: [facility] PATIENT NAME: Mehul Majano : 1930 MR: [id number] V: [id number] EXAM DATE: ORDERING PHYSICIAN: ADELA MOLINA TECHNOLOGIST: Location: [facility] [place] Patient: Mehul Majano : 1930 Visit/Account:[id number] Date of Sevice: 12/31/2017 EXAMINATION: Left LOWER EXTREMITY VENOUS DOPPLER ULTRASOUND DATE: 01/01/2018 1:37 AM REASON FOR STUDY: leg swelling and redness r/o DVT TECHNIQUE: Grayscale, color Doppler, and spectral Doppler ultrasound was performed of the lower extre mity veins to evaluate for deep venous thrombosis. COMPARISON: None FINDINGS: The left common femoral, femoral, and popliteal veins are compressible with normal flow on color Dopp ler imaging. There is also normal Doppler flow of the profunda femoris and greater saphenous veins at the confluence with the common femoral vein. The left posterior tibial and peroneal veins demonstrate normal flow IMPRESSION: No evidence of deep venous thrombosis in the left lower extremity veins. Report Dictated By: Evie Del Cid MD at 01/01/2018 1:37 AM Report E-Signed By: Evie Del Cid MD at 01/01/2018 1:43 AM WSN:[id number]
[2018-01-01] MEDS ORDERED: VANCOMYCIN 1 GM ADDVIAL 1 GM in NS(*) 0.9% 250 ML ADDVAN BAG 250 ML IVPB ONE (01:55)
[2018-01-01] MEDS ORDERED: HYDROCORTISONE 100 MG/2 ML IVP ONE ×2 (01:55→17:10)
--- NOTE | 2018-01-01 02:07 | EKG ---
FACILITY: [facility] PATIENT NAME: KAREN NORMAN : [id number] MR: [id number] V: [id number] EXAM DATE: ORDERING PHYSICIAN: ADELA MOLINA TECHNOLOGIST: NEELAM Test Reason : DYSPNEA Blood Pressure : / mmHG Vent. Rate : 089 BPM Atrial Rate : 089 BPM P-R Int : 126 ms QRS Dur : 072 ms QT Int : 350 ms P-R-T Axes : 056 059 070 degrees QTc Int : 425 ms Sinus rhythm with premature atrial complexes Nonspecific T wave abnormality Abnormal ECG Confirmed by RENETTA GIVENS ([id number]) on 01/01/2018 6:50:23 AM Referred By: Confirmed By:RENETTA GIVENS
--- NOTE | 2018-01-01 03:35 | Procedure Note ---
Arthrocentesis Procedure Note Consent Signed: Yes Central Line Procedure Note Consent Signed: Yes Central Line Lumen: Triple Central Line Procedure: Chlorhexidine Prep Central Line Position: R Internal Jugular Anesthesia Used: 1% Lidocaine Complications: None Central Line Post Position: Sutured SAVAGE WILLINGHAM MD Jan 01, 2018 03:35
--- NOTE | 2018-01-01 03:51 | RADIOLOGY IMAGING REPORT ---
FACILITY: [facility] PATIENT NAME: Mehul Majano : 1930 MR: [id number] V: [id number] EXAM DATE: ORDERING PHYSICIAN: ADELA MOLINA TECHNOLOGIST: Location: [facility] [place] Patient: Mehul Majano : 1930 Visit/Account:[id number] Date of Sevice: 01/01/2018 AP CHEST 01/01/2018 2:56 AM. INDICATION: Central line placement central line placement COMPARISON: Yesterday. FINDINGS: New left IJ central venous catheter terminates in the superior vena cava. Diffuse interstitial promi nence has increased with patchy peripheral opacification. No pleural effusion or pneumothorax. Hear t size is normal. IMPRESSION: 1. The left IJ central venous catheter appears appropriately positioned. 2. Suspected Increased pulmonary edema in the setting of underlying chronic lung disease. Concomitant infection i s not excluded. Report Dictated By: Honorio Espitia MD at 01/01/2018 3:46 AM Report E-Signed By: Honorio Espitia MD at 01/01/2018 3:47 AM WSN:[id number]
[2018-01-01] MEDS ORDERED: NS(*) 0.9% 1000 ML BAG 1,000 ML IV PRN ×2 (04:30→15:50)
[2018-01-01] MEDS ORDERED: FLUSH 10 ML SYR IVP PRN (04:40)
[2018-01-01] MEDS ORDERED: NOREPINE BITAR* 4 MG/4 ML AMP 4 MG in D5W(*) 250 ML BAG 246 ML IV PRN (04:45)
[2018-01-01] MEDS ORDERED: INSULIN HUM LISPRO 100 UN/ML 3 ML VIAL SUBQ PRN (04:45)
[2018-01-01] MEDS: ACETAMINOPHEN(*)1000 MG/100 ML 100 ML IVPB PRN ×3 (04:53→17:20)
[2018-01-01] MEDS ORDERED: AMPICILLIN/SULBACT (*) 3 GM VL 3 GM in NS(*) 0.9% 100 ML BAG 100 ML IVPB SCH ×2 (05:00→12:00)
[2018-01-01] MEDS ORDERED: VANCOMYCIN (*) 0.5 GM VIAL 0.5 GM in NS(*) 0.9% 100 ML BAG 100 ML IVPB ONE (05:00)
--- NOTE | 2018-01-01 05:23 | History & Physical ---
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 He presents with worsening L leg swelling, pain and redness over the past 48 hours. History of Present Illness The patient was recently hospitalized at [facility] with pneumonitis. He was transferred to [facility] on November 24 for consultation with pulmonary medicine due to persistent bilateral infiltrates on CXR and high O2 demands despite treatment with antibiotics. He underwent bronchoscopy and was diagnosed with CONSULTANT TEACHER. Per Dr. Clancy's notes, his BAL washings of the right upper lobe were sent for flow cytometry which was positive for monoclonal B-cells, suggestive of CLL/SLL. The patient was started on prednisone 60mg daily for treatment of the CONSULTANT TEACHER. He has a scheduled follow up appt. with pulmonary. Per the patient's clinic notes ([facility]), the patient fell down some stairs on December 20, injuring his left toes. He presented for his usual follow up appt. with Dr. Jeffrey about a week later and he was noted to have an open weeping wound. An antibiotic impregnated gel was placed over the dorsum of his foot. He returned to the [facility] the following day and was seen by a nurse practitioner who noted the patient's left leg was more swollen, ecchymotic and had developed discoloration involving his medial leg. PT wound care was consulted and the patient's foot and leg were bandaged with absorbant bandages. Home Health wound care had already been set up to manage some decubitus ulcers on the patient's buttocks and it was felt they could also address the leg wounds. The patient states that over the past 48 hours, the leg swelling has worsened. He has developed redness of the lower leg and medial aspect of the entire leg. The leg has felt warm to the touch. He denies fever or chills or body aches but states he has felt generally weak. He denies nausea, vomiting or diarrhea. He denies worsening of his shortness of breath. 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 (13) Benign prostatic hyperplasia (BPH) with straining on urination Status: Chronic (14) Gouty arthropathy Onset Date: 06/27/2014 Status: Chronic Home Meds Active Scripts Furosemide (FUROSEMIDE) 40 Mg Tablet, 1 TAB PO QDAY, #90 TAB 3 Refills Prov:ZHANG JEFFREY MD 12/28/17 Metoprolol Tartrate (METOPROLOL TARTRATE) 25 Mg Tablet, 1 TAB PO BID, #180 TAB 3 Refills Prov:ZHANG JEFFREY MD 12/28/17 Glipizide (GLIPIZIDE ER) 2.5 Mg Tab.er.24, 1 TAB PO QDAY, #90 TAB 3 Refills Prov:ZHANG JEFFREY MD 12/28/17 Lisinopril (LISINOPRIL) 5 Mg Tablet, 1 TAB PO QDAY, #90 TAB 3 Refills Prov:ZHANG JEFFREY MD 12/28/17 Sulfamethoxazole/Trimethoprim (SULFAMETHOXAZOLE-TMP DS TABLET) 1 Each Tablet, 1 TAB PO 3XW, #36 TAB 3 Refills Prov:ZHANG JEFFREY MD 12/15/17 Prednisone (PREDNISONE) 20 Mg Tablet, 3 TAB PO QDAY, #270 TAB 0 Refills Prov:ZHANG JEFFREY MD 12/15/17 Levothyroxine Sodium (LEVOTHYROXINE SODIUM) 150 Mcg Tablet, 1 TAB PO QDAY, #90 TAB 3 Refills Prov:ZHANG JEFFREY MD 12/15/17 Omeprazole (OMEPRAZOLE) 20 Mg Capsule.dr, 1 CAP PO QDAY, #90 TAB 3 Refills Prov:ZHANG JEFFREY MD 10/10/17 Simvastatin (SIMVASTATIN) 20 Mg Tablet, 1 TAB PO HS, #90 TAB 4 Refills Prov:ZHANG JEFFREY MD 07/06/16 Allopurinol (ALLOPURINOL) 100 Mg Tablet, 2 TAB PO DAILY, #180 TAB 4 Refills Prov:ZHANG JEFFREY MD 07/06/16 Reported Medications Potassium Chloride (KLOR-CON 10) 10 Meq Tablet.er, 1 TAB PO QDAY, TAB 12/28/17 Melatonin (MELATONIN) 10 Mg Capsule, 1 CAP PO HS Y for sleeplessness, CAPSULE 12/15/17 Oxygen (OXYGEN) Inha, 3-10 L INH cont, 3 liters per mask at rest and hs, 10 liters per mask with exertion 12/15/17 Polyethylene Glycol 3350 (MIRALAX) 17 Gm Powd.pack, 1 PACK PO QDAY Y for constipation, GM 12/15/17 Selenium (SELENIUM) 100 Mcg Tablet, 1 TAB PO QDAY 07/01/15 Magnesium Oxide (MAGNESIUM) 250 Mg Tablet, 1 TAB PO QDAY 07/01/15 Zinc Amino Acid Chelate (ZINC) 50 Mg Tablet, 1 TAB PO QDAY, CAPSULE 07/01/15 Glucosa Adler 2KCL/Chondroitin Adler (GLUCOSAMINE & CHONDROITIN CAP) 1 Each Capsule, 1 CAP PO BID, CAPSULE 07/01/15 Calcium Carbonate/Vitamin D3 (CALCIUM + VITAMIN D TABLET) 1 Each Tablet, 1 TAB PO QDAY 07/01/15 Discontinued Scripts Furosemide (FUROSEMIDE) 20 Mg Tablet, 1 TAB PO QDAY, #90 TAB 3 Refills Prov:ZHANG JEFFREY MD 12/15/17 Allergies: Coded Allergies: latex (Verified Allergy, Mild, RASH, 12/31/17) Patient History: Diabetes mellitus (DM) BROTHER OR SISTER, Age:81 FH: colon cancer CHILD (Currently in her 50s (11/20/17). Patient states she is receiving chemo and radiation for colon cancer.) FH: stomach ulcer FATHER, , Age:90 (perforated) FHx: rheumatoid arthritis BROTHER OR SISTER, Age:81 FHx: scoliosis CHILD (Currently in her 50s (11/20/17). Patient states she is receiving chemo and radiation for colon cancer.) Hx Smoking: Yes Smoking Status: Former Smoker Caffeine Intake: Coffee Caffeine/Cups Per Day: 6 CUPS/DAY Hx Alcohol Use: No Hx Substance Use Disorder: No Review of Systems Constitutional: No Fever, No Chills Neurological: Weakness Eyes: No Vision Change ENT: No Hearing Loss Cardiovascular: No Chest Pain Respiratory: Other (No worsening of his pulmonary symptoms.) Gastrointestinal: No Nausea, No Vomiting, No Diarrhea Genitourinary: Other (Some difficulty with urination, slow stream.) Musculoskeletal: Pain (L leg with swelling.) Other SKIN: Left leg with weeping wound, top of foot. Worsening redness of lower leg and entire medial aspect of leg. Worsening pain. Exam Vital Signs Vital Signs Date Time Temp Pulse Resp B/P (MAP) Pulse Ox O2 Delivery O2 Flow Rate FiO2 01/01/18 05:00 97.4 97 23 90/50 (63) 95 Nasal Cannula 5.0 General Appearance: Alert, Awake, Other (Appears ill.) Neuro: No Gross deficits Eyes: PERRLA ENT: Other (Nasal stuffiness observed. ) Neck: No Masses Cardiovascular: Regular Rate and Rhythm GI: Abd Soft and Non-Tender Extremities: Other (L leg with increased pitting edema. Anterior tafoya with blotches of bright red discoloration. Dorsum of foot with bandage with drainage noted. Entire medial aspect of leg is pink and warm to the touch.) Integumentary: Other (See above.) Psych: Alert & Oriented X3, Appropriate Mood & Affect Medical Decision Making Data Points Result Diagram: 12/31/17233112/31/172331 Item Value Date Time Neutrophils (%) (Auto) 10.4 % L 12/31/172331 Lymphocytes (%) (Auto) 88.7 % H 12/31/172331 Monocytes (%) (Auto) 0.3 % L 12/31/172331 Eosinophils (%) (Auto) 0.1 % L 12/31/172331 Basophils (%) (Auto) 0.5 % 12/31/172331 Nucleated RBC Relative Count (auto) 0.1 /100WBC 12/31/172331 Neutrophils # (Auto) 0.4 K/uL L 12/31/172331 Lymphocytes # (Auto) 3.3 K/uL 12/31/172331 Monocytes # (Auto) 0.0 K/uL L 12/31/172331 Eosinophils # (Auto) 0.0 K/uL 12/31/172331 Basophils # (Auto) 0.0 K/uL 12/31/172331 Nucleated RBC Absolute Count (auto) 0.00 K/uL 12/31/172331 Peripheral Blood Smear Yes Y/N 12/31/172331 Erythrocyte Sedimentation Rate 13 mm/HOUR 12/31/172331 Lactate 2.7 mmol/L H 12/31/172331 Troponin I 0.035 ng/ml 12/31/172331 B-Type Natriuretic Peptide 329 pg/ml H 12/31/172331 Calcium Level 8.8 mg/dl 12/31/172331 Total Bilirubin 1.4 mg/dl H 12/31/172331 Aspartate Amino Transf (AST/SGOT) 19 U/L 12/31/172331 Alanine Aminotransferase (ALT/SGPT) 40 U/L 12/31/172331 Alkaline Phosphatase 49 U/L 12/31/172331 Total Protein 4.9 g/dl L 12/31/172331 Albumin 2.9 g/dl L 12/31/172331 C-Reactive Protein 16.0 mg/dl H 12/31/172331 Urine Color Yellow 01/01/18158 Urine Clarity Clear 01/01/18158 Urine pH 6.0 pH 01/01/189 Urine Specific [place] 1.014 01/01/18158 Urine Protein Negative mg/dL 01/01/18158 Urine Glucose (UA) Negative mg/dL 01/01/18 015 Urine Ketones Negative mg/dL 01/01/18 0159 Urine Blood Negative 01/01/18 0159 Urine Nitrite Negative 01/01/189 Urine Bilirubin Negative 01/01/18158 Urine Urobilinogen Negative mg/dL 01/01/18158 Urine Leukocyte Esterase Negative 01/01/189 Urine RBC 1 /HPF 01/01/18 0159 Urine WBC 1 /HPF 01/01/18 0159 Urine Squamous Epithelial Cells Few /LPF 01/01/18 0159 Urine Bacteria Few /HPF 01/01/18 0159 Urine Hyaline Casts Few /LPF 01/01/18 0159 Urine Mucus None /HPF 01/01/18 015 Blood cultures drawn in ER and are pending. EKG / Imaging EKG Interpretation FACILITY: [facility] [place] PATIENT NAME: MEHUL MAJANO : [id number] MR: [id number] V: [id number] EXAM DATE: ORDERING PHYSICIAN: ADELA MOLINA TECHNOLOGIST: DMW Test Reason : DYSPNEA Blood Pressure : / mmHG Vent. Rate : 089 BPM Atrial Rate : 089 BPM P-R Int : 126 ms QRS Dur : 072 ms QT Int : 350 ms P-R-T Axes : 056 059 070 degrees QTc Int : 425 ms Sinus rhythm with premature atrial complexes Nonspecific T wave abnormality Abnormal ECG When compared with ECG of 12-NOV-2017 22:02, premature atrial complexes are now present Nonspecific T wave abnormality no longer evident in Inferior leads T wave inversion no longer evident in Anterior leads Referred By: Confirmed By: Imaging FACILITY: [facility] [place] PATIENT NAME: Mehul Majano : 1930 MR: [id number] V: [id number] EXAM DATE: [id number] ORDERING PHYSICIAN: ADELA MOLINA TECHNOLOGIST: Location: [facility] Patient: Mehul Majano : 1930 Visit/Account:[id number] Date of Sevice: 12/31/2017 EXAMINATION: Left LOWER EXTREMITY VENOUS DOPPLER ULTRASOUND DATE: 01/01/2018 1:37 AM REASON FOR STUDY: leg swelling and redness r/o DVT TECHNIQUE: Grayscale, color Doppler, and spectral Doppler ultrasound was performed of the lower extremity veins to evaluate for deep venous thrombosis. COMPARISON: None FINDINGS: The left common femoral, femoral, and popliteal veins are compressible with normal flow on color Doppler imaging. There is also normal Doppler flow of the profunda femoris and greater saphenous veins at the confluence with the common femoral vein. The left posterior tibial and peroneal veins demonstrate normal flow IMPRESSION: No evidence of deep venous thrombosis in the left lower extremity veins. Report Dictated By: Evie Del Cid MD at 01/01/2018 1:37 AM Report E-Signed By: Evie Del Cid MD at 01/01/2018 1:43 AM WSN:[id number] FACILITY: [facility] [place] PATIENT NAME: Mehul Majano : 1930 MR: [id number] V: [id number] EXAM DATE: [id number] ORDERING PHYSICIAN: ADELA MOLINA TECHNOLOGIST: Location: [facility] Patient: Mehul Majano : 1930 Visit/Account:[id number] Date of Sevice: 01/01/2018 AP CHEST 01/01/2018 2:56 AM. INDICATION: Central line placement central line placement COMPARISON: Yesterday. FINDINGS: New left IJ central venous catheter terminates in the superior vena cava. Diffuse interstitial prominence has increased with patchy peripheral opacification. No pleural effusion or pneumothorax. Heart size is normal. IMPRESSION: 1. The left IJ central venous catheter appears appropriately positioned. 2. Suspected Increased pulmonary edema in the setting of underlying chronic lung disease. Concomitant infection is not excluded. Report Dictated By: Honorio Espitia MD at 01/01/2018 3:46 AM Report E-Signed By: Honorio Espitia MD at 01/01/2018 3:47 AM WSN:[id number] Pre-Admit Course ED Medications Vancomycin 1g, hydrocortisone 100mg, NS (over 4 liters) Medical Record Review: Yes ([facility] Assessment and Plan Problems: (1) Sepsis Status: Acute Assessment & Plan: He presented to the ER with hypotension, tachycardia and an elevated lactate. Initial temperature was 99.8. He was aggressively hydrated in the ER and a central line was placed to ensure adequate IV access. Blood cultures were drawn. He was given a gram of IV vancomycin. He was given hydrocortisone 100mg IV. He was then transferred to the ICU and another 500mg of vancomycin was ordered (based on weight of 88Kg). Unasyn was also ordered. His blood pressure remained in the 80s systolic with MAPs at about 65. Levophed was ordered to be started if his MAP dropped below 65. He was continued on IV fluids. Repeat blood work including CBC, CMP and lactate were ordered for 0500. Urine output is currently over 80cc per hour. (2) Hypotension Status: Acute Assessment & Plan: Due to above. See above. (3) LISA (acute kidney injury) Status: Acute Assessment & Plan: Likely due to sepsis, hypotension and dehydration. Aggressively hydrate and monitor labs. Renal dosing of medications. Avoid nephrotoxins. Creatinine clearance is currently estimated to be about 40 mL/min based on his estimated lean body weight. (4) Left leg cellulitis Status: Acute Assessment & Plan: Due to previous injury on December 20 with open wound, dorsum of left foot. Will continue Vancomycin and Unasyn and have PT wound care evaluate. CRP elevated on admission to 16. Will follow. Venogram shows no evidence of DVT in the left leg. (5) Pancytopenia Status: Acute Assessment & Plan: May be due to sepsis versus recent recurrence of CLL/SLL. Follow CBC and treat as needed. Dr. Clancy's notes indicate that the patient' s anemia is likely inflammatory and he would recommend transfusion if his Hgb drops below 8. (6) Cryptogenic organizing pneumonia Status: Chronic Assessment & Plan: The patient was recently evaluated by pulmonary at [facility]. He was diagnosed with CONSULTANT TEACHER and started on prednisone 60mg daily. He has a follow up appt. scheduled. (7) Bilateral lower extremity edema Status: Chronic Assessment & Plan: The patient is on daily Lasix which will be held due to LISA and hypotension. (8) Small B-cell lymphoma Status: Chronic Assessment & Plan: Recurrent. See Dr. Clancy's notes from December 29, 2017[address]. Clancy recommended the patient will start treatment with ibrutinib. (9) CLL (chronic lymphocytic leukemia) Status: Chronic Assessment & Plan: See above. (10) Essential hypertension Status: Chronic Assessment & Plan: Hold lisinopril, metoprolol and Lasix due to hypotension and LISA. (11) Hypercholesteremia Status: Chronic Assessment & Plan: Continue simvastatin. (12) Elevated fasting glucose Status: Acute Assessment & Plan: Will monitor glucoses AC/HS and place on SSI level 2. Hold glipizide for now. (13) Acquired hypothyroidism Status: Chronic Assessment & Plan: Continue levothyroxine. (14) Gouty arthropathy Onset Date: 06/27/2014 Status: Chronic Assessment & Plan: Continue allopurinol. (15) Peptic ulcer disease Status: Chronic Assessment & Plan: He takes omeprazole at home. Will place in IV Protonix here. Time Spent on Plan of Care: < 30 min Venous Thromboembolism Antithrombotics Is Pt On Any Antithrombotics?: No Prophylaxis Tx Contraindicated Pharmacological Contraindicati: Low Platelet Count Exam Sepsis Risk: No Definite Risk Problem Qualifiers (1) Sepsis: Sepsis type: sepsis due to unspecified organism Qualified Codes: A41.9 - Sepsis, unspecified organism (2) Hypotension: Hypotension type: unspecified hypotension type Qualified Codes: I95.9 - Hypotension, unspecified RENETTA STONE MD Jan 01, 2018 05:23
[2018-01-01] MEDS ORDERED: LEVOPHED KIT (*) 1 IVSOL 1 KIT IV ONE (05:36)
[2018-01-01] MEDS ORDERED: WATER FOR INJ,STERILE 20 ML 20 ML ONE (05:42)
[2018-01-01] MEDS ORDERED: LEVOTHYROXINE SOD 0.150 MG TAB PO SCH (06:00)
--- NOTE | 2018-01-01 06:40 | Miscellaneous Provider Note ---
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 He presents with worsening L leg swelling, pain and redness over the past 48 hours. History of Present Illness The patient was recently hospitalized at [facility] with pneumonitis. He was transferred to [facility] on November 24 for consultation with pulmonary medicine due to persistent bilateral infiltrates on CXR and high O2 demands despite treatment with antibiotics. He underwent bronchoscopy and was diagnosed with CAMERA ENGINEER. Per Dr. Clancy's notes, his BAL washings of the right upper lobe were sent for flow cytometry which was positive for monoclonal B-cells, suggestive of CLL/SLL. The patient was started on prednisone 60mg daily for treatment of the CAMERA ENGINEER. He has a scheduled follow up appt. with pulmonary. Per the patient's clinic notes ([facility]), the patient fell down some stairs on December 20, injuring his left toes. He presented for his usual follow up appt. with Dr. Jeffrey about a week later and he was noted to have an open weeping wound. An antibiotic impregnated gel was placed over the dorsum of his foot. He returned to the [facility] the following day and was seen by a nurse practitioner who noted the patient's left leg was more swollen, ecchymotic and had developed discoloration involving his medial leg. PT wound care was consulted and the patient's foot and leg were bandaged with absorbant bandages. Home Health wound care had already been set up to manage some decubitus ulcers on the patient's buttocks and it was felt they could also address the leg wounds. The patient states that over the past 48 hours, the leg swelling has worsened. He has developed redness of the lower leg and medial aspect of the entire leg. The leg has felt warm to the touch. He denies fever or chills or body aches but states he has felt generally weak. He denies nausea, vomiting or diarrhea. He denies worsening of his shortness of breath. 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 (13) Benign prostatic hyperplasia (BPH) with straining on urination Status: Chronic (14) Gouty arthropathy Onset Date: 06/27/2014 Status: Chronic Home Meds Active Scripts Furosemide (FUROSEMIDE) 40 Mg Tablet, 1 TAB PO QDAY, #90 TAB 3 Refills Prov:ZHANG JEFFREY MD 12/28/17 Metoprolol Tartrate (METOPROLOL TARTRATE) 25 Mg Tablet, 1 TAB PO BID, #180 TAB 3 Refills Prov:ZHANG JEFFREY MD 12/28/17 Glipizide (GLIPIZIDE ER) 2.5 Mg Tab.er.24, 1 TAB PO QDAY, #90 TAB 3 Refills Prov:ZHANG JEFFREY MD 12/28/17 Lisinopril (LISINOPRIL) 5 Mg Tablet, 1 TAB PO QDAY, #90 TAB 3 Refills Prov:ZHANG JEFFREY MD 12/28/17 Sulfamethoxazole/Trimethoprim (SULFAMETHOXAZOLE-TMP DS TABLET) 1 Each Tablet, 1 TAB PO 3XW, #36 TAB 3 Refills Prov:ZHANG JEFFREY MD 12/15/17 Prednisone (PREDNISONE) 20 Mg Tablet, 3 TAB PO QDAY, #270 TAB 0 Refills Prov:ZHANG JEFFREY MD 12/15/17 Levothyroxine Sodium (LEVOTHYROXINE SODIUM) 150 Mcg Tablet, 1 TAB PO QDAY, #90 TAB 3 Refills Prov:ZHANG JEFFREY MD 12/15/17 Omeprazole (OMEPRAZOLE) 20 Mg Capsule.dr, 1 CAP PO QDAY, #90 TAB 3 Refills Prov:ZHANG JEFFREY MD 10/10/17 Simvastatin (SIMVASTATIN) 20 Mg Tablet, 1 TAB PO HS, #90 TAB 4 Refills Prov:ZHANG JEFFREY MD 07/06/16 Allopurinol (ALLOPURINOL) 100 Mg Tablet, 2 TAB PO DAILY, #180 TAB 4 Refills Prov:ZHANG JEFFREY MD 07/06/16 Reported Medications Potassium Chloride (KLOR-CON 10) 10 Meq Tablet.er, 1 TAB PO QDAY, TAB 12/28/17 Melatonin (MELATONIN) 10 Mg Capsule, 1 CAP PO HS Y for sleeplessness, CAPSULE 12/15/17 Oxygen (OXYGEN) Inha, 3-10 L INH cont, 3 liters per mask at rest and hs, 10 liters per mask with exertion 12/15/17 Polyethylene Glycol 3350 (MIRALAX) 17 Gm Powd.pack, 1 PACK PO QDAY Y for constipation, GM 12/15/17 Selenium (SELENIUM) 100 Mcg Tablet, 1 TAB PO QDAY 07/01/15 Magnesium Oxide (MAGNESIUM) 250 Mg Tablet, 1 TAB PO QDAY 07/01/15 Zinc Amino Acid Chelate (ZINC) 50 Mg Tablet, 1 TAB PO QDAY, CAPSULE 07/01/15 Glucosa Adler 2KCL/Chondroitin Adler (GLUCOSAMINE & CHONDROITIN CAP) 1 Each Capsule, 1 CAP PO BID, CAPSULE 07/01/15 Calcium Carbonate/Vitamin D3 (CALCIUM + VITAMIN D TABLET) 1 Each Tablet, 1 TAB PO QDAY 07/01/15 Discontinued Scripts Furosemide (FUROSEMIDE) 20 Mg Tablet, 1 TAB PO QDAY, #90 TAB 3 Refills Prov:ZHANG JEFFREY MD 12/15/17 Allergies: Coded Allergies: latex (Verified Allergy, Mild, RASH, 12/31/17) Patient History: Diabetes mellitus (DM) BROTHER OR SISTER, Age:81 FH: colon cancer CHILD (Currently in her 50s (11/20/17). Patient states she is receiving chemo and radiation for colon cancer.) FH: stomach ulcer FATHER, , Age:90 (perforated) FHx: rheumatoid arthritis BROTHER OR SISTER, Age:81 FHx: scoliosis CHILD (Currently in her 50s (11/20/17). Patient states she is receiving chemo and radiation for colon cancer.) Hx Smoking: Yes Smoking Status: Former Smoker Caffeine Intake: Coffee Caffeine/Cups Per Day: 6 CUPS/DAY Hx Alcohol Use: No Hx Substance Use Disorder: No Review of Systems Constitutional: No Fever, No Chills Neurological: Weakness Eyes: No Vision Change ENT: No Hearing Loss Cardiovascular: No Chest Pain Respiratory: Other (No worsening of his pulmonary symptoms.) Gastrointestinal: No Nausea, No Vomiting, No Diarrhea Genitourinary: Other (Some difficulty with urination, slow stream.) Musculoskeletal: Pain (L leg with swelling.) Other SKIN: Left leg with weeping wound, top of foot. Worsening redness of lower leg and entire medial aspect of leg. Worsening pain. Exam Vital Signs Vital Signs Date Time Temp Pulse Resp B/P (MAP) Pulse Ox O2 Delivery O2 Flow Rate FiO2 01/01/18 05:00 97.4 97 23 90/50 (63) 95 Nasal Cannula 5.0 General Appearance: Alert, Awake, Other (Appears ill.) Neuro: No Gross deficits Eyes: PERRLA ENT: Other (Nasal stuffiness observed. ) Neck: No Masses Cardiovascular: Regular Rate and Rhythm GI: Abd Soft and Non-Tender Extremities: Other (L leg with increased pitting edema. Anterior tafoya with blotches of bright red discoloration. Dorsum of foot with bandage with drainage noted. Entire medial aspect of leg is pink and warm to the touch.) Integumentary: Other (See above.) Psych: Alert & Oriented X3, Appropriate Mood & Affect Medical Decision Making Data Points Result Diagram: 12/31/17233112/31/172331 Item Value Date Time Neutrophils (%) (Auto) 10.4 % L 12/31/172331 Lymphocytes (%) (Auto) 88.7 % H 12/31/172331 Monocytes (%) (Auto) 0.3 % L 12/31/172331 Eosinophils (%) (Auto) 0.1 % L 12/31/172331 Basophils (%) (Auto) 0.5 % 12/31/172331 Nucleated RBC Relative Count (auto) 0.1 /100WBC 12/31/172331 Neutrophils # (Auto) 0.4 K/uL L 12/31/172331 Lymphocytes # (Auto) 3.3 K/uL 12/31/172331 Monocytes # (Auto) 0.0 K/uL L 12/31/172331 Eosinophils # (Auto) 0.0 K/uL 12/31/172331 Basophils # (Auto) 0.0 K/uL 12/31/172331 Nucleated RBC Absolute Count (auto) 0.00 K/uL 12/31/172331 Peripheral Blood Smear Yes Y/N 12/31/172331 Erythrocyte Sedimentation Rate 13 mm/HOUR 12/31/172331 Lactate 2.7 mmol/L H 12/31/172331 Troponin I 0.035 ng/ml 12/31/172331 B-Type Natriuretic Peptide 329 pg/ml H 12/31/172331 Calcium Level 8.8 mg/dl 12/31/172331 Total Bilirubin 1.4 mg/dl H 12/31/172331 Aspartate Amino Transf (AST/SGOT) 19 U/L 12/31/172331 Alanine Aminotransferase (ALT/SGPT) 40 U/L 12/31/172331 Alkaline Phosphatase 49 U/L 12/31/172331 Total Protein 4.9 g/dl L 12/31/172331 Albumin 2.9 g/dl L 12/31/172331 C-Reactive Protein 16.0 mg/dl H 12/31/172331 Urine Color Yellow 01/01/18158 Urine Clarity Clear 01/01/18158 Urine pH 6.0 pH 01/01/189 Urine Specific [place] 1.014 01/01/18158 Urine Protein Negative mg/dL 01/01/18158 Urine Glucose (UA) Negative mg/dL 01/01/18 0159 Urine Ketones Negative mg/dL 01/01/189 Urine Blood Negative 01/01/189 Urine Nitrite Negative 01/01/189 Urine Bilirubin Negative 01/01/189 Urine Urobilinogen Negative mg/dL 01/01/18 015 Urine Leukocyte Esterase Negative 01/01/189 Urine RBC 1 /HPF 01/01/18 0159 Urine WBC 1 /HPF 01/01/189 Urine Squamous Epithelial Cells Few /LPF 01/01/18 0159 Urine Bacteria Few /HPF 01/01/18 0159 Urine Hyaline Casts Few /LPF 01/01/18 0159 Urine Mucus None /HPF 01/01/18158 Blood cultures drawn in ER and are pending. EKG / Imaging EKG Interpretation FACILITY: [facility] PATIENT NAME: MEHUL MAJANO : [id number] MR: [id number] V: [id number] EXAM DATE: ORDERING PHYSICIAN: ADELA MOLINA TECHNOLOGIST: DMW Test Reason : DYSPNEA Blood Pressure : / mmHG Vent. Rate : 089 BPM Atrial Rate : 089 BPM P-R Int : 126 ms QRS Dur : 072 ms QT Int : 350 ms P-R-T Axes : 056 059 070 degrees QTc Int : 425 ms Sinus rhythm with premature atrial complexes Nonspecific T wave abnormality Abnormal ECG When compared with ECG of 12-NOV-2017 22:02, premature atrial complexes are now present Nonspecific T wave abnormality no longer evident in Inferior leads T wave inversion no longer evident in Anterior leads Referred By: Confirmed By: Imaging FACILITY: [facility] PATIENT NAME: Mehul Majano : 1930 MR: [id number] V: [id number] EXAM DATE: [id number] ORDERING PHYSICIAN: ADELA MOLINA TECHNOLOGIST: Location: [facility] Patient: Mehul Majano : 1930 Visit/Account:[id number] Date of Sevice: 12/31/2017 EXAMINATION: Left LOWER EXTREMITY VENOUS DOPPLER ULTRASOUND DATE: 01/01/2018 1:37 AM REASON FOR STUDY: leg swelling and redness r/o DVT TECHNIQUE: Grayscale, color Doppler, and spectral Doppler ultrasound was performed of the lower extremity veins to evaluate for deep venous thrombosis. COMPARISON: None FINDINGS: The left common femoral, femoral, and popliteal veins are compressible with normal flow on color Doppler imaging. There is also normal Doppler flow of the profunda femoris and greater saphenous veins at the confluence with the common femoral vein. The left posterior tibial and peroneal veins demonstrate normal flow IMPRESSION: No evidence of deep venous thrombosis in the left lower extremity veins. Report Dictated By: Evie Del Cid MD at 01/01/2018 1:37 AM Report E-Signed By: Evie Del Cid MD at 01/01/2018 1:43 AM WSN:[id number] FACILITY: [facility] PATIENT NAME: Mehul Majano : 1930 MR: [id number] V: [id number] EXAM DATE: [id number] ORDERING PHYSICIAN: ADELA MOLINA TECHNOLOGIST: Location: [facility] Patient: Mehul Majano : 1930 Visit/Account:[id number] Date of Sevice: 01/01/2018 AP CHEST 01/01/2018 2:56 AM. INDICATION: Central line placement central line placement COMPARISON: Yesterday. FINDINGS: New left IJ central venous catheter terminates in the superior vena cava. Diffuse interstitial prominence has increased with patchy peripheral opacification. No pleural effusion or pneumothorax. Heart size is normal. IMPRESSION: 1. The left IJ central venous catheter appears appropriately positioned. 2. Suspected Increased pulmonary edema in the setting of underlying chronic lung disease. Concomitant infection is not excluded. Report Dictated By: Honorio Espitia MD at 01/01/2018 3:46 AM Report E-Signed By: Honorio Espitia MD at 01/01/2018 3:47 AM WSN:[id number] Pre-Admit Course ED Medications Vancomycin 1g, hydrocortisone 100mg, NS (over 4 liters) Medical Record Review: Yes ([facility] from [facility]) Assessment and Plan Problems: (1) Sepsis Status: Acute Assessment & Plan: He presented to the ER with hypotension, tachycardia and an elevated lactate. Initial temperature was 99.8. He was aggressively hydrated in the ER and a central line was placed to ensure adequate IV access. Blood cultures were drawn. He was given a gram of IV vancomycin. He was given hydrocortisone 100mg IV. He was then transferred to the ICU and another 500mg of vancomycin was ordered (based on weight of 88Kg). Unasyn was also ordered. His blood pressure remained in the 80s systolic with MAPs at about 65. Levophed was ordered to be started if his MAP dropped below 65. He was continued on IV fluids. Repeat blood work including CBC, CMP and lactate were ordered for 0500. Urine output is currently over 80cc per hour. (2) Hypotension Status: Acute Assessment & Plan: Due to above. See above. (3) LISA (acute kidney injury) Status: Acute Assessment & Plan: Likely due to sepsis, hypotension and dehydration. Aggressively hydrate and monitor labs. Renal dosing of medications. Avoid nephrotoxins. Creatinine clearance is currently estimated to be about 40 mL/min based on his estimated lean body weight. (4) Left leg cellulitis Status: Acute Assessment & Plan: Due to previous injury on December 20 with open wound, dorsum of left foot. Will continue Vancomycin and Unasyn and have PT wound care evaluate. CRP elevated on admission to 16. Will follow. Venogram shows no evidence of DVT in the left leg. (5) Pancytopenia Status: Acute Assessment & Plan: May be due to sepsis versus recent recurrence of CLL/SLL. Follow CBC and treat as needed. Dr. Clancy's notes indicate that the patient' s anemia is likely inflammatory and he would recommend transfusion if his Hgb drops below 8. (6) Cryptogenic organizing pneumonia Status: Chronic Assessment & Plan: The patient was recently evaluated by pulmonary at [facility]. He was diagnosed with CAMERA ENGINEER and started on prednisone 60mg daily. He has a follow up appt. scheduled. (7) Bilateral lower extremity edema Status: Chronic Assessment & Plan: The patient is on daily Lasix which will be held due to LISA and hypotension. (8) Small B-cell lymphoma Status: Chronic Assessment & Plan: Recurrent. See Dr. Clancy's notes from December 29, 2017. Dr. Clancy recommended the patient will start treatment with ibrutinib. (9) CLL (chronic lymphocytic leukemia) Status: Chronic Assessment & Plan: See above. (10) Essential hypertension Status: Chronic Assessment & Plan: Hold lisinopril, metoprolol and Lasix due to hypotension and LISA. (11) Hypercholesteremia Status: Chronic Assessment & Plan: Continue simvastatin. (12) Elevated fasting glucose Status: Acute Assessment & Plan: Will monitor glucoses AC/HS and place on SSI level 2. Hold glipizide for now. (13) Acquired hypothyroidism Status: Chronic Assessment & Plan: Continue levothyroxine. (14) Gouty arthropathy Onset Date: 06/27/2014 Status: Chronic Assessment & Plan: Continue allopurinol. (15) Peptic ulcer disease Status: Chronic Assessment & Plan: He takes omeprazole at home. Will place in IV Protonix here. Time Spent on Plan of Care: < 30 min Venous Thromboembolism Antithrombotics Is Pt On Any Antithrombotics?: No Prophylaxis Tx Contraindicated Pharmacological Contraindicati: Low Platelet Count Exam Sepsis Risk: No Definite Risk Problem Qualifiers (1) Sepsis: Sepsis type: sepsis due to unspecified organism Qualified Codes: A41.9 - Sepsis, unspecified organism (2) Hypotension: Hypotension type: unspecified hypotension type Qualified Codes: I95.9 - Hypotension, unspecified RENETTA STONE MD Jan 01, 2018 05:23 <Electronically signed by RENETTA STONE MD> D/ [id number] AURELIANO/LUPILLO CC: Copies to: ZHANG JEFFREY MD; MARK MATUTE MD Medical Records to be sent: History and Physical RENETTA STONE MD Jan 01, 2018 06:40
[2018-01-01 07:17] LABS: PLATELET COUNT, AUTOMATED 76 K/uL (150-450)
[2018-01-01] MEDS ORDERED: KCL (*) 20 MEQ/100 ML PREMIX 100 ML IV ONE (07:20)
[2018-01-01] MEDS: OXYMETAZOLINE SPRAY 15 ML BTL ENA SCH ×2 (08:55→21:00)
[2018-01-01] MEDS ORDERED: PANTOPRAZOLE SOD 40 MG IV VIAL IVP SCH (09:00)
[2018-01-01] MEDS ORDERED: predniSONE 20 MG TAB PO SCH (09:00)
[2018-01-01] MEDS ORDERED: ALLOPURINOL 100 MG TAB PO SCH ×2 (09:00→17:00)
--- NOTE | 2018-01-01 09:53 | Hospitalist Progress Note ---
Subjective Progress Notes Subjective He c/o significant pain in left LE. BPs are still marginal. Physical Exam Vital Signs Date Time Temp Pulse Resp B/P (MAP) Pulse Ox O2 Delivery O2 Flow Rate FiO2 01/01/18 09:19 101 01/01/18 09:00 97.8 12 87/66 (73) 100 Nasal Cannula 4.0 Intake and Output 01/02/18 07:00 Intake Total 361 ml Output Total 40 ml Balance 321 ml Intake Oral 240 ml IV Total 121 ml Output Urine Total 40 ml # Bowel Movements 2 General Appearance: Alert, Awake Cardiovascular: Regular Rate and Rhythm Respiratory: Clear to Auscultation Extremities: Other (LLE with significant edema throughout/erythema patchy and extends proximally to near groin/scrotum/penis/perineum appear normal/open area over dorsum of foot with serous drainage) Psych: Alert & Oriented X3 Result Diagram: 01/01/1862401/01/18624 Assessment and Plan Problems: (1) Sepsis Status: Acute Assessment & Plan: He presented to the ER with hypotension, tachycardia and an elevated lactate. Initial temperature was 99.8. He was aggressively hydrated in the ER and a central line was placed to ensure adequate IV access. Blood cultures were drawn. He will continue on IV vancomycin, Unasyn, hydrocortisone. His blood pressures have remained in the 80-90 systolic with MAPs at about 6- 70. He continues on IV Levophed and IV fluids. Watch labs/UOP. (2) Left leg cellulitis Status: Acute Assessment & Plan: Due to previous injury on December 20 with open wound, dorsum of left foot. Will continue Vancomycin and Unasyn. Will check CT scan JOHNATHON to check for any potential abscesses/necrosis. Further evaluation/treatment pending results. Will also have PT wound care evaluate. Venogram shows no evidence of DVT in the left leg. (3) Hypotension Status: Acute Assessment & Plan: Due to above. See above. (4) LISA (acute kidney injury) Status: Acute Assessment & Plan: Likely due to sepsis, hypotension and dehydration. Continue as above. Watch labs/UOP. Modify medications if needed. (5) Pancytopenia Status: Acute Assessment & Plan: May be due to sepsis versus recent recurrence of CLL/SLL. Follow CBC and treat as needed. Dr. Clancy's notes indicate that the patient' s anemia is likely inflammatory and he would recommend transfusion if his Hgb drops below 8. (6) Cryptogenic organizing pneumonia Status: Chronic Assessment & Plan: The patient was recently evaluated by pulmonary at [facility]. He was diagnosed with NUT ORCHARDIST and started on prednisone 60mg daily. He is on stress dose Solu-Cortef as well. (7) Bilateral lower extremity edema Status: Chronic Assessment & Plan: The patient is on daily Lasix which will be held due to LISA and hypotension. (8) Small B-cell lymphoma Status: Chronic Assessment & Plan: Recurrent. See Dr. Clancy's notes from December 29, 2017. Dr. Clancy has recommended the patient will start treatment with ibrutinib. (9) CLL (chronic lymphocytic leukemia) Status: Chronic Assessment & Plan: See above. (10) Essential hypertension Status: Chronic Assessment & Plan: Hold lisinopril, metoprolol and Lasix due to hypotension and LISA. (11) Hypercholesteremia Status: Chronic Assessment & Plan: Hold simvastatin. (12) Elevated fasting glucose Status: Acute Assessment & Plan: Monitor glucoses AC/HS and use SSI level 2. Hold glipizide for now. (13) Acquired hypothyroidism Status: Chronic Assessment & Plan: Continue levothyroxine. (14) Gouty arthropathy Onset Date: 06/27/2014 Status: Chronic Assessment & Plan: Continue allopurinol. (15) Peptic ulcer disease Status: Chronic Assessment & Plan: He takes omeprazole at home. On IV Protonix here. Exam Sepsis Risk: Severe Sepsis Risk Problem Qualifiers (1) Sepsis: Sepsis type: sepsis due to unspecified organism Qualified Codes: A41.9 - Sepsis, unspecified organism (2) Hypotension: Hypotension type: unspecified hypotension type Qualified Codes: I95.9 - Hypotension, unspecified DILLON STONE MD Jan 01, 2018 09:53
[2018-01-01] MEDS: NOREPINE BITAR* 4 MG/4 ML AMP 8 MG in D5W(*) 500 ML BAG 492 ML IV PRN ×2 (09:59→17:19)
[2018-01-01] MEDS ORDERED: KCL 2 MEQ/ML 20 MEQ/10 ML VIAL 20 MEQ in NS(*) 0.9% 1000 ML BAG 1,000 ML IV PRN (11:04)
[2018-01-01] MEDS ORDERED: KCL/NS* 20 MEQ/1000 ML PREMIX 1,000 ML IV PRN (11:20)
--- NOTE | 2018-01-01 11:56 | RADIOLOGY IMAGING REPORT ---
[place] [facility] [place]: Mehul Majano : 1930 MR: [id number] V: [id number] EXAM DATE: ORDERING PHYSICIAN: DILLON STONE TECHNOLOGIST: [place] [facility] [place] Maj[place] : 1930 Visit/Account:[id number] Date of Sevice: 01/01/2018 Exam type: TIBIA LEFT W/O CONTRAST, FEMUR LEFT W/O CONTRAST, FOOT LEFT W/O CONTRAST History: 87-year-old male with a possible necrotizing infection TECHNIQUE: Contiguous 2 mm helical images of the left femur, left tibia and fibula and left foot was performed without contrast. 2-D coronal sagittal reformations were performed. One of the following dose optimization techniques was utilized in the performance of this exam: Autom ated exposure control; adjustment of the mA and/or kV according to the patient's size; or use of an i terative reconstruction technique. Specific details can be referenced in the facility's radiology C T exam operational policy. Comparison: None. Findings: The soft tissues of the left lower extremity involving the femur, tibia and fibula and foot are marke dly edematous consistent with cellulitis. No evidence for formed fluid collection or abscess or gas w ithin the soft tissues to suggest necrotizing infection within the limits of a noncontrasted CT scan. Muscle groups are unremarkable for age. There is vascular calcification. Note is made of a small left knee effusion. Some degenerative changes are noted in the left foot. No obvious erosive changes to suggest osteomyel itis. IMPRESSION: 1. Marked soft tissue edema of the left lower extremity from the hip to the foot suggestive of cellul itis. No formed fluid collection or abscess. No soft tissue gas to suggest a necrotizing infection wi thin the limits of a noncontrasted CT. Report Dictated By: Nino Sparks MD at 01/01/2018 11:41 AM Report E-Signed By: Nino Sparks MD at 01/01/2018 11:52 AM WSN:[id number]
--- NOTE | 2018-01-01 11:56 | RADIOLOGY IMAGING REPORT ---
FACILITY: [facility] PATIENT NAME: Mehul Majano : 1930 MR: [id number] V: [id number] EXAM DATE: ORDERING PHYSICIAN: DILLON STONE TECHNOLOGIST: Location: [facility] [place] Patient: Mehul Majano : 1930 Visit/Account:[id number] Date of Sevice: 01/01/2018 Exam type: TIBIA LEFT W/O CONTRAST, FEMUR LEFT W/O CONTRAST, FOOT LEFT W/O CONTRAST History: 87-year-old male with a possible necrotizing infection TECHNIQUE: Contiguous 2 mm helical images of the left femur, left tibia and fibula and left foot was performed without contrast. 2-D coronal sagittal reformations were performed. One of the following dose optimization techniques was utilized in the performance of this exam: Autom ated exposure control; adjustment of the mA and/or kV according to the patient's size; or use of an i terative reconstruction technique. Specific details can be referenced in the facility's radiology C T exam operational policy. Comparison: None. Findings: The soft tissues of the left lower extremity involving the femur, tibia and fibula and foot are marke dly edematous consistent with cellulitis. No evidence for formed fluid collection or abscess or gas w ithin the soft tissues to suggest necrotizing infection within the limits of a noncontrasted CT scan. Muscle groups are unremarkable for age. There is vascular calcification. Note is made of a small left knee effusion. Some degenerative changes are noted in the left foot. No obvious erosive changes to suggest osteomyel itis. IMPRESSION: 1. Marked soft tissue edema of the left lower extremity from the hip to the foot suggestive of cellul itis. No formed fluid collection or abscess. No soft tissue gas to suggest a necrotizing infection wi thin the limits of a noncontrasted CT. Report Dictated By: Nino Sparks MD at 01/01/2018 11:41 AM Report E-Signed By: Nino Sparks MD at 01/01/2018 11:52 AM WSN:[id number]
--- NOTE | 2018-01-01 11:57 | RADIOLOGY IMAGING REPORT ---
FACILITY: [facility] [place] PATIENT NAME: Mehul Majano : 1930 MR: [id number] V: [id number] EXAM DATE: ORDERING PHYSICIAN: DILLON STONE TECHNOLOGIST: Location: [facility] [place] Patient: Mehul Majano : 1930 Visit/Account:[id number] Date of Sevice: 01/01/2018 Exam type: TIBIA LEFT W/O CONTRAST, FEMUR LEFT W/O CONTRAST, FOOT LEFT W/O CONTRAST History: 87-year-old male with a possible necrotizing infection TECHNIQUE: Contiguous 2 mm helical images of the left femur, left tibia and fibula and left foot was performed without contrast. 2-D coronal sagittal reformations were performed. One of the following dose optimization techniques was utilized in the performance of this exam: Autom ated exposure control; adjustment of the mA and/or kV according to the patient's size; or use of an i terative reconstruction technique. Specific details can be referenced in the facility's radiology C T exam operational policy. Comparison: None. Findings: The soft tissues of the left lower extremity involving the femur, tibia and fibula and foot are marke dly edematous consistent with cellulitis. No evidence for formed fluid collection or abscess or gas w ithin the soft tissues to suggest necrotizing infection within the limits of a noncontrasted CT scan. Muscle groups are unremarkable for age. There is vascular calcification. Note is made of a small left knee effusion. Some degenerative changes are noted in the left foot. No obvious erosive changes to suggest osteomyel itis. IMPRESSION: 1. Marked soft tissue edema of the left lower extremity from the hip to the foot suggestive of cellul itis. No formed fluid collection or abscess. No soft tissue gas to suggest a necrotizing infection wi thin the limits of a noncontrasted CT. Report Dictated By: Nino Sparks MD at 01/01/2018 11:41 AM Report E-Signed By: Nino Sparks MD at 01/01/2018 11:52 AM WSN:[id number]
[2018-01-01] MEDS ORDERED: traMADol 50 MG TAB PO PRN (12:00)
[2018-01-01] MEDS ORDERED: NS(*) 0.9% 500 ML BAG 500 ML IV PRN ×2 (12:20→15:47)
[2018-01-01] MEDS ORDERED: ALBUMIN HUMAN 5% 250 ML BTL 250 ML IVPB SCH (12:30)
--- NOTE | 2018-01-01 13:52 | Pharmacy Note ---
Pharmacy Note Time Provider Notified: 09:00 Note: Dr. Avina mentioned to me that the after hours pharmacist recommended a different vancomycin dosage but he was not going to change it as he wanted to make sure the patient was covered. FABIAN OCONNOR Jan 01, 2018 13:52
[2018-01-01] MEDS ORDERED: HYDROCORTISONE 100 MG/2 ML IVP SCH ×2 (14:00→22:00)
[2018-01-01] MEDS ORDERED: IV BOLUS 500 ML IVSOL IV ONE ×2 (14:30→15:40)
[2018-01-01] MEDS ORDERED: ALBUMIN HUMAN 5% 250 ML BTL 250 ML IVPB ONE (15:40)
[2018-01-01] MEDS ORDERED: NS 0.9% IV ONE (15:50)
[2018-01-01] MEDS ORDERED: VANCOMYCIN(*) 1 GM VIAL 1 GM, VANCOMYCIN (*) 0.5 GM VIAL 0.5 GM in NS(*) 0.9% 250 ML BA... IVPB SCH (16:00)
[2018-01-01] MEDS ORDERED: DOPamine/DEXTRO(*) 1600 MCG/ML 250 ML IV PRN (17:15)
[2018-01-01] MEDS ORDERED: LOPERAMIDE HCL 2 MG CAP PO PRN (17:40)
[2018-01-01] MEDS ORDERED: LOPERAMIDE HCL 2 MG CAP PO ONE (17:40)
[2018-01-01] MEDS ORDERED: IMIPENEM/CILASTA(*) 500MG VIAL 500 MG in NS(*) 0.9% 100 ML BAG 100 ML IVPB SCH (18:00)
--- NOTE | 2018-01-01 18:05 | Pharmacy Note ---
Pharmacy Note Date Provider Notified: Jan 01, 2018 Time Provider Notified: 17:30 Provider Notified: Dr. Nathan Avina Note: POM orders for Primaxin 500 mg Iv q6h were entered by the Dr. Vicente Avina. I calculated the pt's CrCl to be 39.46 ml/min and called to recommend 300 mg IV q6h if he was using a usual dose of 500 mg Iv q6h. He said that he would rather use a usual dose of 1000 mg Iv q6h due to severity of illness so I checked Lexicomp and 500 mg iv q6h of primaxin would be appropriate with the pt' s renal function. FABIAN OCONNOR Jan 01, 2018 18:04
[2018-01-01] MEDS ORDERED: MIDAZOLAM IV PRN (19:35)
[2018-01-01] MEDS ORDERED: NS 0.9% IV PRN (19:35)
--- NOTE | 2018-01-01 19:38 | RADIOLOGY IMAGING REPORT ---
FACILITY: [facility] - [place] PATIENT NAME: Mehul Majano : 1930 MR: [id number] V: [id number] EXAM DATE: ORDERING PHYSICIAN: DILLON STONE TECHNOLOGIST: Location: [facility] Patient: Mehul Majano : 1930 Visit/Account:[id number] Date of Sevice: 01/01/2018 EXAMINATION: Portable AP Chest HISTORY: Shortness of breath. COMPARISON: Prior study of earlier today. FINDINGS: Advanced fibrotic appearing interstitial changes throughout both lungs. There are more confluent area s of airspace disease in the peripheral aspect of the upper lungs which appears grossly stable. Media l upper lungs are obscured by the patient's overlying head. No new or progressive consolidation in the lungs. No significant pleural effusion. Stable cardiomediastinal silhouette. Left IJ CVC with tip overlying the cavoatrial junction. No acute osseous findings. IMPRESSION: 1. Stable interstitial changes throughout both lungs with a component of chronic fibrosis. 2. More confluent areas of airspace disease in the upper lungs appear stable. 3. No other new or progressive findings in the chest. Report Dictated By: Vishal Bianchi MD at 01/01/2018 7:29 PM Report E-Signed By: Vishal Bianchi MD at 01/01/2018 7:33 PM WSN:[id number]
[2018-01-01] MEDS ORDERED: metroNIDAZOLE* 500MG/100ML BAG 100 ML IVPB SCH (20:00)
--- NOTE | 2018-01-01 20:19 | RADIOLOGY IMAGING REPORT ---
FACILITY: [facility] PATIENT NAME: Mehul Majano : 1930 MR: [id number] V: [id number] EXAM DATE: ORDERING PHYSICIAN: DILLON STONE TECHNOLOGIST: Location: [facility] - [place], [place] Patient: Mehul Majano : 1930 Visit/Account:[id number] Date of Sevice: 01/01/2018 AP CHEST 01/01/2018 7:46 PM. INDICATION: INTUBATION COMPARISON: Same-day radiograph. FINDINGS: Endotracheal tube terminates in the mid thoracic trachea. Left IJ central venous catheter is unchang ed. Bilateral mixed pulmonary opacities have not significantly changed. No definite pleural effusio n or pneumothorax. Heart size is normal. IMPRESSION: Endotracheal tube appears appropriately positioned, otherwise unchanged. Report Dictated By: Honorio Espitia MD at 01/01/2018 8:14 PM Report E-Signed By: Honorio Espitia MD at 01/01/2018 8:16 PM WSN:[id number]
--- NOTE | 2018-01-01 20:26 | Miscellaneous Provider Note ---
Miscellaneous Provider Note Note Mr. Majano has had persistent hypotension despite IV fluids and Levophed. He is now tachypneic with a metabolic acidosis. He is trying to compensate with respiratory rate, but not effectively. Mr. Majano does not feel he can "keep up ". We discussed intubation and mechanical ventilation to help support him and he is agreeable. Will also place arterial line to help monitor status. I also discussed this with his and nephew who are in agreement. DILLON STONE MD Jan 01, 2018 20:26
--- NOTE | 2018-01-01 20:29 | Procedure Note ---
Intubation Procedure Note Consent Signed: No Time of Intubation: 20:00 Intubation Method: Orotracheal Intubation Medications: Succinylcholine, Versed Breath Sounds after Intubation: Equal Post Intubation Xray: Yes Progress/Xray Impression: ET tube in acceptable position Comment Procedure went very smoothly, but during intubation a laceration was noted on his soft palate. A small amount of blood was noted as well. DILLON STONE MD Jan 01, 2018 20:29
[2018-01-01] MEDS ORDERED: SUCCINYLCHOL CHL 200MG/10ML VL ONE (20:54)
[2018-01-01] MEDS ORDERED: SIMVASTATIN 20 MG TAB PO SCH (21:00)
--- NOTE | 2018-01-01 21:44 | Miscellaneous Provider Note ---
Miscellaneous Provider Note Note Mr. Majano has continued to decline despite all our efforts. His acidosis has worsened - lactate has continued to climb. Even with ventilatory support he has not been able to compensate. Dr. Dee attempted arterial line placement, but due to peripheral vascular disease and high dose Levophed he was unsuccessful. His BPs persist low in spite of the high dose Levophed. The addition of dopamine did not help BP support and caused significant tachycardia. His entire leg has started to blister with large areas of breakdown and weeping. I have had lengthy discussions with his family members regarding his decline. Even with the most aggressive interventions his condition would most likely not improve and his appears imminent. At this point, they now would like to withdraw the "life support" interventions and transition into comfort care/end- of-life care. DILLON STONE MD Jan 01, 2018 21:44
[2018-01-01] MEDS ORDERED: LORazepam 2 MG/ML VIAL IVP PRN (21:50)
[2018-01-01] MEDS: MORPHINE 2 MG/ML SYR IVP PRN ×2 (21:59→22:34)
--- NOTE | 2018-01-01 22:26 | Death Summary ---
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 Hospital Course He presented to the ER with fever, hypotension, tachycardia and an elevated lactate. He was aggressively hydrated in the ER and a central line was placed to ensure adequate IV access. Blood cultures were drawn and were reportedly growing a gram positive lauren within the first 24 hours. He was placed on IV vancomycin, Unasyn (switched to Primaxin), metronidazole, and hydrocortisone. His blood pressures remained in the 80-90 systolic. He was placed on IV Levophed and given aggressive IV fluids. He was also given albumin infusions. He continued hypotensive and was placed on IV dopamine as well. He did not respond to the addition of the dopamine. He continued to be very acidotic with rising lactate levels. He was trying to compensate with respiratory rate, but was unable to keep up. He was subsequently intubated to help support his status. Unfortunately, Mr. Majano continued to decline despite all our efforts. His acidosis worsened. Even with ventilatory support he was not able to compensate. Dr. Dee attempted arterial line placement, but due to peripheral vascular disease and high dose Levophed he was unsuccessful. His BPs persisted low in spite of the high dose Levophed. The addition of dopamine did not help BP support and caused significant tachycardia. His entire leg started to blister with large areas of breakdown and weeping. I had lengthy discussions with his family members regarding his decline. Even with the most aggressive interventions his condition would most likely not improve and his appeared imminent. At this point, they decided to withdraw the "life support" interventions and transition into comfort care/end-of-life care. Mr. Majano declined very rapidly. He was without spontaneous respirations or heart tones and pronounced at 2203 hours on 01/01/18. Copies to: ZHANG GORDILLO MD Medical Records to be sent: History and Physical, Summary DILLON STONE MD Jan 01, 2018 22:26
[2018-01-01] MEDS ORDERED: MIDAZOLAM 1 MG/1 ML 10 ML ONE (23:03)
[2018-01-02] MEDS ORDERED: ALBUMIN HUMAN 5% 250 ML BTL 250 ML IVPB SCH (00:30)
[2018-01-02] MEDS ORDERED: TRIMETH/SULFA DS 160-800MG TAB PO SCH (09:00)
== END 2018-01-01 22:03 | disposition expired | DRG 872 ==
LOC: ER 23:23 → ICU 01-01 02:03
PROVIDERS: ADMIT Internal Medicine; ATTEND Internal Medicine
PROC: 05HM33Z Insertion of Infusion Device into Right Internal Jugular Vein, Percutaneous Approach (ICD-10-PCS; principal; 2018-01-01)
PROC: 5A1935Z Respiratory Ventilation, Less than 24 Consecutive Hours (ICD-10-PCS; 2018-01-01)
PROC: 0CHY7BZ Insertion of Airway into Mouth and Throat, Via Natural or Artificial Opening (ICD-10-PCS; 2018-01-01)
DX: A41.9 Sepsis, unspecified organism (principal); L03.116 Cellulitis of left lower limb; N17.9 Acute kidney failure, unspecified; J84.116 Cryptogenic organizing pneumonia; C91.10 Chronic lymphocytic leukemia of B-cell type not having achieved remission; D61.818 Other pancytopenia; R65.20 Severe sepsis without septic shock; Z51.5 Encounter for palliative care; E03.9 Hypothyroidism, unspecified; E78.00 Pure hypercholesterolemia, unspecified; K21.9 Gastro-esophageal reflux disease without esophagitis; E11.40 Type 2 diabetes mellitus with diabetic neuropathy, unspecified; M1A.9XX0 Chronic gout, unspecified, without tophus (tophi); I11.0 Hypertensive heart disease with heart failure; I50.9 Heart failure, unspecified; C44.729 Squamous cell carcinoma of skin of left lower limb, including hip; L82.1 Other seborrheic keratosis; B35.1 Tinea unguium; E86.0 Dehydration; E83.52 Hypercalcemia; K27.7 Chronic peptic ulcer, site unspecified, without hemorrhage or perforation; Z91.040 Latex allergy status; Z87.891 Personal history of nicotine dependence
CPT/HCPCS: 36416; 36600; 81001; 82040; 82247; 82310; 82374; 82435; 82565; 82803; 82947; 82948; 83605; 83880; 84075; 84132; 84155; 84295; 84450; 84460; 84484; 84520; 85025; 85651; 86140; 87040; 87324; 87449; 93005; 94002; 99291; C9113; J0131; J0295; J0330; J0743; J1265; J1720; J2250; J2270; J3370; J3480; J3490; J7030; J7040; J7050; J7060; J7512; P9045

== ENCOUNTER → 2017-12-31 | Outpatient (CLI) | payer MEDICARE, BC ==
[2018-01-01 12:42] VITALS: BMI 29.6
== END ==
LOC: AMB 23:05
PROVIDERS: ATTEND Nurse Practitioner
DX: R60.0 Localized edema (principal); M79.662 Pain in left lower leg; R09.02 Hypoxemia
CPT/HCPCS: A0425; A0427; A0429